=== PATIENT | female | born 1955 | race Caucasian/White ===

== ENCOUNTER → 2017-02-15 | Outpatient (CLI) | payer OTHER ==
[2017-02-15 08:48] LABS: CH 31.9; CHCM 34.4; HGB 16.2 gm/dL (11.4-16.0); MCH 31.4 pg (25.0-35.0); MCHC 33.8 g/dL (31.0-37.0); MCV 92.9 fL (80.0-100.0); RBC 5.17 m/uL (3.80-5.40); RDW 12.6 % (11.5-15.5); WBC 6.1 k/uL (3.8-10.6)
[2017-02-15 09:13] LABS: ALT 46 U/L (9-52); AST 25 U/L (14-36); Alkaline Phosphatase 62 U/L (38-126); Anion Gap 10 mmol/L; Blood Urea Nitrogen 22 mg/dL (7-17); Calcium 10.2 mg/dL (8.4-10.2); Carbon Dioxide 30 mmol/L (22-30); Chloride 103 mmol/L (98-107); Cholesterol 236 mg/dL (<200); Glucose 95 mg/dL (74-99); HDL Cholesterol 70 mg/dL (40-60); Non-African American GFR(MDRD) >60 (>60 ml/min/1.73 sqM); Potassium 4.6 mmol/L (3.5-5.1); Sodium 143 mmol/L (137-145); Total Bilirubin 0.7 mg/dL (0.2-1.3); Total Protein 8.1 g/dL (6.3-8.2); Triglycerides 98 mg/dL (<150)
[2017-02-15 12:04] LABS: Hemoglobin A1C 5.1 % (4.2-6.1)
== END | disposition home or self-care (01) ==
LOC: LABWHC1 08:21
PROVIDERS: ATTEND Internal Medicine Critical Care Medicine
DX: F41.9 Anxiety disorder, unspecified (principal); G47.00 Insomnia, unspecified
CPT/HCPCS: 36415; 80053; 80061; 82306; 83036; 84439; 84443; 85027

== ENCOUNTER → 2017-02-15 | Outpatient (CLI) | payer OTHER ==
--- NOTE | 2017-02-18 08:03 | MM ---
Reason for exam: additional evaluation requested from prior study. Last mammogram was performed 1 year ago. History: Patient is postmenopausal. Family history of breast cancer in paternal uncle and breast cancer in paternal grandmother. Excisional biopsy of the left breast, 2003. Excisional biopsy of the right breast, 2002. Taking estrogen for 2 years beginning at age 57. Physical Findings: Nurse Summary: 1cm nodule in the left breast at 6-7 o'clock (nurse sedrick). MG Diagnostic Mammo w CAD JOSE Bilateral CC and MLO view(s) were taken. Prior study comparison: February 15, 2016, bilateral MG screening mammo w CAD. February 04, 2015, left breast MG diagnostic mammo LT w CAD. The breast tissue is heterogeneously dense. This may lower the sensitivity of mammography. Previous mammotome biopsy in the left breast. There is chronic nodularity in the left breast. No significant new findings when compared with previous films. These results were verbally communicated with the patient and result sheet given to the patient on 02/15/17. ASSESSMENT: Benign, BI-RAD 2 RECOMMENDATION: Routine screening mammogram of both breasts in 1 year.
--- NOTE | 2017-02-18 08:04 | USB ---
Reason for exam: clinical finding. History: Patient is postmenopausal. Family history of breast cancer in paternal uncle and breast cancer in paternal grandmother. Excisional biopsy of the left breast, 2003. Excisional biopsy of the right breast, 2002. Taking estrogen for 2 years beginning at age 57. US Breast LT Left breast ultrasound includes all four quadrants, the retroareolar region and axilla. Finding demonstrate a 5 x 4 x 5mm oval, cystic lesion at 7 o'clock, slightly irregular. These results were verbally communicated with the patient and result sheet given to the patient on 02/15/17. ASSESSMENT: Probably benign, BI-RAD 3 RECOMMENDATION: Ultrasound of the left breast in 6 months.
== END | disposition home or self-care (01) ==
LOC: RADMAMWWP 07:06
PROVIDERS: ATTEND Obstetrics & Gynecology
DX: N63 Unspecified lump in breast (principal)
CPT/HCPCS: 76641; G0204

== ENCOUNTER → 2017-07-15 | Outpatient (CLI) | payer OTHER ==
--- NOTE | 2017-07-15 10:06 | CT ---
EXAMINATION TYPE: CT lumbar spine wo con DATE OF EXAM: 07/15/2017 COMPARISON: MR lumbar spine 02/03/2013 HISTORY: Back pain CT DLP: 530.2 mGycm Automated exposure control for dose reduction was used. An unenhanced CT of the lumbar spine was performed. Bone and soft tissue window settings are submitt ed as well as coronal and sagittal reconstructions. FINDINGS: Vertebral body height is maintained. Minimal anterolisthesis grade 1 L3-4. Multilevel spondylosis is present. Loss of disc height L5-S1 as compared to previous exam. Nonobstructive calculus associated w ith the midpole the left kidney measures approximately 3 mm, lower pole shows an additional 1 to 2 mm calcification bilaterally. Patient is post cholecystectomy, dilation of the bile duct likely due to postcholecystectomy change. There is a hiatal hernia present. L1-L2: Normal disc space height. No disc herniation protrusion or central stenosis. No facet joint arthropathy. No evidence for foraminal encroachment. L2-L3: Normal disc space height. No disc herniation protrusion or central stenosis. No facet joint arthropathy. No evidence for foraminal encroachment. L3-L4: Circumferential posterior disc bulging extends laterally and with the listhesis contributes to cause some mild foraminal encroachment. Facet arthropathy with hypertrophic change of the ligamentum flavum encroaches on the lateral recesses. Mild central stenosis. L4-L5: Facet arthropathy change is present with hypertrophic change of the ligamentum flavum encroach ing on the lateral recesses. Circumferential posterior disc bulge causes anterior mass effect on the thecal sac, mild central stenosis. No definite foraminal encroachment. L5-S1: Vacuum disc phenomenon present at L5-S1. Broad-based posterior disc bulge may contact the prox imal S1 nerve roots. No significant central stenosis. Circumferential extension of endplate disc comp karis encroaches on the neural foramina bilaterally. IMPRESSION: No paraspinal masses are identified. Lumbar segments are intact. Degenerative disc disease, facet ar thropathy, foraminal encroachment as described.
== END | disposition home or self-care (01) ==
LOC: RADCTMAIN 07:08
PROVIDERS: ATTEND Internal Medicine Critical Care Medicine
DX: M51.26 Other intervertebral disc displacement, lumbar region (principal); M46.86 Other specified inflammatory spondylopathies, lumbar region
CPT/HCPCS: 72131

== ENCOUNTER → 2017-09-16 | Outpatient (CLI) | payer OTHER ==
--- NOTE | 2017-09-17 07:11 | USB ---
Reason for exam: follow-up at short interval from prior study. History: Patient is postmenopausal. Family history of breast cancer in paternal uncle and breast cancer in paternal grandmother. Excisional biopsy of the left breast, 2003. Excisional biopsy of the right breast, 2002. Taking estrogen for 2 years beginning at age 57. Physical Findings: Nurse did not find any significant physical abnormalities on exam. US Breast LT Left breast ultrasound includes all four quadrants, the retroareolar region and axilla. Finding demonstrates a 4 x 3 x 4mm oval, cystic, benign lesion at 1 o'clock and a 4 x 3 x 4mm oval, cystic lesion at 7 o'clock versus 5 x 4 x 5mm previously at the palpable. An irregular cyst is suggested. Mammogram follow up can be performed. These results were verbally communicated with the patient and result sheet given to the patient on 09/16/17. ASSESSMENT: Probably benign, BI-RAD 3 RECOMMENDATION: Follow-up diagnostic mammogram of both breasts in 6 months.
== END | disposition home or self-care (01) ==
LOC: RADUSWWP 14:33
PROVIDERS: ATTEND Obstetrics & Gynecology
DX: R92.8 Other abnormal and inconclusive findings on diagnostic imaging of breast (principal)

== ENCOUNTER → 2018-03-17 | Outpatient (CLI) | payer OTHER ==
[2018-03-17 10:14] LABS: Basophils % (A) 1 %; Eosinophils # (A) 0.2 k/uL (0-0.7); Eosinophils % (A) 4 %; HCT 43.9 % (34.0-46.0); HGB 15.1 gm/dL (11.4-16.0); Lymphocytes # (A) 1.7 k/uL (1.0-4.8); Lymphocytes % (A) 29 %; MCH 30.9 pg (25.0-35.0); MCHC 34.4 g/dL (31.0-37.0); Mean Platelet Volume 7.1; Monocytes # (A) 0.3 k/uL (0-1.0); Monocytes % (A) 6 %; Neutrophils # (A) 3.5 k/uL (1.3-7.7); Neutrophils % (A) 59 %; Platelet Count 342 k/uL (150-450); RBC 4.88 m/uL (3.80-5.40); RDW 12.3 % (11.5-15.5); WBC 5.9 k/uL (3.8-10.6)
[2018-03-17 10:25] LABS: ALT 26 U/L (9-52); AST 17 U/L (14-36); Albumin 3.8 g/dL (3.5-5.0); Alkaline Phosphatase 50 U/L (38-126); Anion Gap 13 mmol/L; Blood Urea Nitrogen 14 mg/dL (7-17); Calcium 9.9 mg/dL (8.4-10.2); Carbon Dioxide 26 mmol/L (22-30); Chloride 102 mmol/L (98-107); Cholesterol 213 mg/dL (<200); Glucose 98 mg/dL (74-99); HDL Cholesterol 54 mg/dL (40-60); LDL Cholesterol,Calculated 146 mg/dL (0-99); Potassium 4.3 mmol/L (3.5-5.1); Sodium 141 mmol/L (137-145); Total Bilirubin 0.4 mg/dL (0.2-1.3); Total Protein 6.7 g/dL (6.3-8.2); Triglycerides 67 mg/dL (<150)
[2018-03-17 10:42] LABS: T4, Free (Free Thyroxine) 0.75 ng/dL (0.78-2.19)
[2018-03-17 21:16] LABS: Hemoglobin A1C 4.8 % (4.0-6.0)
== END ==
LOC: LABWHC1 09:35
PROVIDERS: ATTEND Internal Medicine Critical Care Medicine
DX: Z00.00 Encounter for general adult medical examination without abnormal findings (principal); J45.909 Unspecified asthma, uncomplicated; F41.9 Anxiety disorder, unspecified; G89.29 Other chronic pain; E78.5 Hyperlipidemia, unspecified
CPT/HCPCS: 36415; 77062; 80053; 80061; 82306; 83036; 84439; 84443; 84481; 85025

== ENCOUNTER → 2018-03-17 | Outpatient (CLI) | payer OTHER ==
--- NOTE | 2018-03-18 08:40 | MM ---
Reason for exam: additional evaluation requested from prior study. Last mammogram was performed 1 year and 1 month ago. History: Patient is postmenopausal. Family history of breast cancer in paternal uncle and breast cancer in paternal grandmother. Excisional biopsy of the left breast, 2003. Excisional biopsy of the right breast, 2002. Took estrogen for 2 years beginning at age 57. Physical Findings: Nurse Summary: 0.5cm nodule in the left breast at 2 o'clock (nurse mj). MG 3D Diag Mammo W/Cad JOSE Bilateral CC and MLO view(s) were taken. Prior study comparison: February 15, 2017, bilateral MG diagnostic mammo w CAD JOSE. February 15, 2016, bilateral MG screening mammo w CAD. The breast tissue is heterogeneously dense. This may lower the sensitivity of mammography. No significant new findings when compared with previous films. These results were verbally communicated with the patient and result sheet given to the patient on 03/17/18. ASSESSMENT: Benign, BI-RAD 2 RECOMMENDATION: Routine screening mammogram of both breasts in 1 year.
--- NOTE | 2018-03-18 08:41 | USB ---
Reason for exam: additional evaluation requested from prior study. History: Patient is postmenopausal. Family history of breast cancer in paternal uncle and breast cancer in paternal grandmother. Excisional biopsy of the left breast, 2003. Excisional biopsy of the right breast, 2002. Took estrogen for 2 years beginning at age 57. US Breast LT Left complete breast ultrasound includes all four quadrants, the retroareolar region and axilla. Finding demonstrates a 6 x 4 x 4mm cystic lesion at 1 o'clock. These results were verbally communicated with the patient and result sheet given to the patient on 03/17/18. ASSESSMENT: Benign, BI-RAD 2 RECOMMENDATION: Routine screening mammogram of both breasts in 1 year.
== END | disposition home or self-care (01) ==
LOC: RADMAMWWP 13:46
PROVIDERS: ATTEND Obstetrics & Gynecology
DX: R92.8 Other abnormal and inconclusive findings on diagnostic imaging of breast (principal); Z80.3 Family history of malignant neoplasm of breast
CPT/HCPCS: 77062; 77066

== ENCOUNTER → 2019-03-03 | Outpatient (CLI) | payer OTHER ==
--- NOTE | 2019-03-05 03:35 | MR ---
EXAMINATION TYPE: MR brain and iac wo/w con DATE OF EXAM: 03/03/2019 COMPARISON: NONE HISTORY: 63-year-old female cerebrovascular disease, hearing loss, Dizziness, Lt otalgia TECHNIQUE: Multiplanar, multisequence images of the brain and brainstem were acquired before and aft er administration of 7.5 mL IV Gadavist. Diffusion weighted imaging was performed. Additional cone d-down sequences through the internal auditory canals and posterior cranial fossa before and after IV contrast administration. FINDINGS: Diffusion weighted images demonstrate no evidence of an acute ischemic lesion in the brain. T2/FLAIR weighted sequences show mild periventricular bright white matter signal, likely age-related change. Midline structures demonstrate partially empty sella but otherwise normal morphology. The craniocerv ical junction is normal. There is mild cerebral atrophy. The ventricles are of normal caliber. There is a round, T2 isointense to mildly hyperintense, avidly enhancing mass within the medial left middle cranial fossa that may have a subtle enhancing dural tail. No surrounding vasogenic edema. There is no evidence of an acute intracranial hemorrhage, infarct, mass effect, or an extra-axial flu id collection. There is no cerebellopontine angle mass. The internal auditory canals are symmetric. Brainstem and skull base abnormalities are not seen. Post contrast images demonstrate no evidence of pathologic enhancement in the posterior cranial fossa or the internal auditory canals. There is no abnormal enhancement of the labyrinths. Scattered trace mucosal thickening within the ethmoid air cells. Globes are intact. IMPRESSION: 1. Round, avidly enhancing isointense to mildly hyperintense mass medial left middle cranial fossa wi th a subtle dural tail suggesting an extra-axial location. No vasogenic edema or mass effect. 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 Consider neurosurgery referral for surveillance or consideration t o other management options. Three-month follow-up MRI can be performed. 2. Otherwise, no acute intracranial abnormality seen. No specific abnormality identified on acoustic MRI.
== END ==
LOC: RADMRIMAIN 12:20
PROVIDERS: ATTEND Nurse Practitioner Family
DX: I67.89 Other cerebrovascular disease (principal); H90.3 Sensorineural hearing loss, bilateral; H92.02 Otalgia, left ear
CPT/HCPCS: 70553; A9585

== ENCOUNTER → 2019-03-20 | Outpatient (CLI) | payer OTHER ==
--- NOTE | 2019-03-24 13:44 | MM ---
Reason for exam: screening (asymptomatic). Last mammogram was performed 1 year ago. History: Patient is postmenopausal. Family history of breast cancer in paternal uncle and breast cancer in paternal grandmother. Excisional biopsy of the left breast, 2003. Excisional biopsy of the right breast, 2002. Took estrogen for 2 years beginning at age 57. Physical Findings: A clinical breast exam by your physician is recommended on an annual basis and results should be correlated with mammographic findings. MG Screening Mammo w CAD Bilateral CC and MLO view(s) were taken. Prior study comparison: March 17, 2018, bilateral MG 3d diag mammo w/cad JOSE. February 15, 2017, bilateral MG diagnostic mammo w CAD JOSE. The breast tissue is heterogeneously dense. This may lower the sensitivity of mammography. Previous mammotome biopsy in the left breast. No significant changes when compared with prior studies. ASSESSMENT: Benign, BI-RAD 2 RECOMMENDATION: Routine screening mammogram of both breasts in 1 year.
== END | disposition home or self-care (01) ==
LOC: RADMAMWWP 06:55
PROVIDERS: ATTEND Obstetrics & Gynecology
DX: Z12.31 Encounter for screening mammogram for malignant neoplasm of breast (principal); Z80.3 Family history of malignant neoplasm of breast
CPT/HCPCS: 77067

== ENCOUNTER → 2019-06-19 | Outpatient (CLI) | payer OTHER ==
--- NOTE | 2019-06-19 12:36 | MR ---
EXAMINATION TYPE: MR brain wo/w con DATE OF EXAM: 06/19/2019 COMPARISON: MR brain 03/03/2019 HISTORY: MENINGIOMA TECHNIQUE: Multiplanar, multisequence images of the brain and brainstem is performed without and with IV contras t, utilizing 7 mL intravenous Gadavist . FINDINGS: The enhancing mass along the medial aspect of the middle temporal fossa shows essentially s table appearance accounting for differences in technique measuring approximately 12.5 mm in greatest AP dimension. Diffusion weighted images demonstrate no evidence of a recent infarct or other diffusio n abnormality. There is no extra-axial fluid collection or significant white matter signal abnormali ty. The ventricular system and cisternal spaces are normal in size and appearance. The brain volume is age appropriate. Midline structures demonstrate normal morphology. The craniocervical junction appears within normal limits. Post contrast images demonstrate no abnormal enhancement. The dural venous sinuses appear pa tent. The visualized sinuses are clear and the globes are intact. IMPRESSION: Meningioma shows essentially stable appearance.
== END | disposition home or self-care (01) ==
LOC: RADMRIMAIN 09:24
DX: D32.0 Benign neoplasm of cerebral meninges (principal)
CPT/HCPCS: 70553; A9585

== ENCOUNTER → 2019-07-09 | Outpatient (CLI) | payer OTHER ==
[2019-07-09 09:32] LABS: Basophils # (A) 0.1 k/uL (0-0.2); Basophils % (A) 1 %; Eosinophils # (A) 0.2 k/uL (0-0.7); Eosinophils % (A) 3 %; HCT 44.5 % (34.0-46.0); HGB 15.5 gm/dL (11.4-16.0); Lymphocytes # (A) 1.6 k/uL (1.0-4.8); Lymphocytes % (A) 24 %; MCHC 34.9 g/dL (31.0-37.0); MCV 91.7 fL (80.0-100.0); Mean Platelet Volume 7.1; Monocytes # (A) 0.3 k/uL (0-1.0); Monocytes % (A) 4 %; Neutrophils # (A) 4.5 k/uL (1.3-7.7); Neutrophils % (A) 67 %; Platelet Count 345 k/uL (150-450); RBC 4.85 m/uL (3.80-5.40); RDW 14.2 % (11.5-15.5); WBC 6.8 k/uL (3.8-10.6)
[2019-07-09 16:05] LABS: African American GFR (CKD) 107.6 (60.0-200.0); Albumin 4.3 g/dL (3.80-4.90); Albumin/Globulin Ratio 2.05 (1.60-3.17); Anion Gap 8.1 mmol/L (4.00-12.00); Calcium 9.8 mg/dL (8.7-10.3); Carbon Dioxide 24.9 mmol/L (21.6-31.8); Chol/HDL Ratio 4.29; Globulin 2.1 g/dL (1.6-3.3); LDL Cholesterol,Calculated 137.6 mg/dL (0.0-131.0); Potassium 4.4 mmol/L (3.5-5.5); Total Bilirubin 0.5 mg/dL (0.2-1.2); Total Protein 6.4 g/dL (6.2-8.2); VLDL Calculation 20.4 mg/dL (5.00-40.00)
[2019-07-09 16:21] LABS: T4, Free (Free Thyroxine) 0.8 ng/dL (0.80-1.80)
[2019-07-09 18:46] LABS: Hemoglobin A1C 5.1 % (4.0-6.0)
== END | disposition home or self-care (01) ==
LOC: LABWHC1 08:57
PROVIDERS: ATTEND Internal Medicine Critical Care Medicine
DX: E78.5 Hyperlipidemia, unspecified (principal); J45.909 Unspecified asthma, uncomplicated; G89.29 Other chronic pain
CPT/HCPCS: 36415; 80053; 80061; 82306; 83036; 84439; 84443; 85025

== ENCOUNTER → 2019-07-24 | Outpatient (CLI) | payer OTHER ==
--- NOTE | 2019-07-24 07:03 | MR ---
EXAMINATION TYPE: MR lumbar spine wo con DATE OF EXAM: 07/24/2019 COMPARISON: MRI lumbar spine February 03, 2013 HISTORY: Low back pain TECHNIQUE: Multiplanar, multisequence imaging of the lumbar spine is performed without IV contrast. FINDINGS: Sagittal images of the lumbar spine show vertebral body heights and alignment to remain sat isfactory. Multilevel disc desiccation is redemonstrated but this space heights are fairly well-maint ained. The conus medullaris remains normal in position and signal ending superior L1 level. The bon e marrow signal intensity shows a few small scattered hemangiomas. Axial images at T12-L1 and L1-L2 levels remain within normal limits. Axial images at L2-L3 level redemonstrate mild broad disc bulge but spinal canal is preserved and elena ateral neural foramina are patent. No significant interval change. Axial images at L3-L4 level show moderate facet degenerative changes and ligamentum flavum hypertroph y effacing posterior lateral thecal sac and [id number] broad disc bulge effacing the anterior t hecal sac. There is mild bilateral anterior inferior neural foraminal narrowing. There is progression in findings at this level from prior MRI. Axial images at the L4-L5 level show mild facet degenerative changes bilaterally. There is central di sc protrusion seen. Bilateral neural foramina are patent. No significant change from prior. Axial images at L5-S1 level redemonstrated mild facet degenerative changes bilaterally. There is mode rate broad disc bulge with left lateral disc protrusion component. The latter is slightly more promin ent versus prior study. Spinal canal is grossly preserved. There is mild left-sided neural foraminal narrowing seen on current study. No suspicious incidental retroperitoneal finding. IMPRESSION: Multilevel fairly mild degenerative changes in the lumbar spine as detailed above. Findin gs most prominent at L3-L4 level with some interval progression from 2013 MRI noted.
== END | disposition home or self-care (01) ==
LOC: RADMRIMAIN 05:55
PROVIDERS: ATTEND Orthopaedic Surgery Orthopaedic Surgery of the Spine
DX: M48.061 Spinal stenosis, lumbar region without neurogenic claudication (principal); M48.07 Spinal stenosis, lumbosacral region; M51.26 Other intervertebral disc displacement, lumbar region; M51.86 Other intervertebral disc disorders, lumbar region; M47.816 Spondylosis without myelopathy or radiculopathy, lumbar region; M47.897 Other spondylosis, lumbosacral region; M51.27 Other intervertebral disc displacement, lumbosacral region; E78.5 Hyperlipidemia, unspecified; R51 Headache
CPT/HCPCS: 72148

== ENCOUNTER → 2019-07-24 | Outpatient (CLI) | payer OTHER ==
--- NOTE | 2019-07-24 07:14 | MR ---
MRI CERVICAL SPINE: CLINICAL HISTORY: Cervicalgia, posterior left neck discomfort, referred left otalgia, and osteoarthri tis all per order. Headache with sinus pressure for 9 months per patient. TECHNIQUE: Multiplanar, multisequence imaging of the cervical spine is performed without with IV cont rast. COMPARISON: None. FINDINGS: Sagittal images of the cervical spine show the craniocervical junction to appear within nor mal limits. The cervical and upper thoracic spinal cord is normal in course, caliber, and signal. V ertebral alignment is straightened. There is slight grade 1 retrolisthesis C4 on C5, C5 and C6, and C 6 on C7. The vertebral body heights are normal. Mild disc space narrowing C5-C6 level. There is focal hemangioma anterior superior T3 vertebra. Axial images show C2-C3, C3-C4, C4-C5 levels all 2 appear within normal limits. Axial images at the C5-C6 level showed broad based left paracentral disc protrusion mildly facing ant erior thecal sac and causing asymmetric [id number] left-sided neural foraminal narrowing. Axial images at C6-C7 levels with broad-based right paracentral disc protrusion mildly effacing the a nterolateral thecal sac. Bilateral neural foramina are patent. Axial images at C7-T1 level are felt within normal limits. IMPRESSION: Multilevel spondylolisthesis and degenerative change most prominent at C5-C6 level as det rigo above.
== END | disposition home or self-care (01) ==
LOC: RADMRIMAIN 06:02
PROVIDERS: ATTEND Otolaryngology
DX: M99.71 Connective tissue and disc stenosis of intervertebral foramina of cervical region (principal); M48.02 Spinal stenosis, cervical region; M43.12 Spondylolisthesis, cervical region; M50.222 Other cervical disc displacement at C5-C6 level; M47.812 Spondylosis without myelopathy or radiculopathy, cervical region; Z88.0 Allergy status to penicillin; Z88.2 Allergy status to sulfonamides
CPT/HCPCS: 72141

== ENCOUNTER → 2019-08-13 | Outpatient (CLI) | payer OTHER ==
--- NOTE | 2019-08-13 09:55 | CT ---
EXAMINATION TYPE: CT iac wo con DATE OF EXAM: 08/13/2019 COMPARISON: MRI brain 816 HISTORY: Dizziness CT DLP: 150mGycm Automated exposure control for dose reduction was used. FINDINGS: The external auditory canals are patent bilaterally. Mastoid air cells show no evidence of abnormal opacification bilaterally. The middle ear ossicles are symmetric and unremarkable. There is no evidence of suspicious surrounding soft tissue density to suggest cholesteatoma. The scutum is preserved bilaterally. The cochlea and the semicircular canals are symmetric and unremarkable. Ves tibular aqueduct and internal carotid canal appear unremarkable. Temporomandibular joints are mainta ined bilaterally. The anterior temporal fossa mass noted by MRI suggestive of meningioma is not as well-seen by noncont rast CT of the IACs. IMPRESSION: 1. No significant abnormality seen to account for patient's symptoms. 2. Recently noted extra-axial mass anterior left temporal fossa not well seen by noncontrast CT scan compared to the MRI. Favor meningioma. Measures approximately 1.2 cm.
== END | disposition home or self-care (01) ==
LOC: RADCTMAIN 08:03
PROVIDERS: ATTEND Student in an Organized Health Care Education/Training Program
DX: H71.00 Cholesteatoma of attic, unspecified ear (principal)
CPT/HCPCS: 70480

== ENCOUNTER 2020-06-30 07:40 | Emergency (ER) | payer OTHER ==
[2020-06-30 07:47] VITALS: BP 164/85; PULSE 83; RESP 16; TEMP 98.3
[2020-06-30] MEDS ORDERED: MORPHINE SULFATE 4 MG/ML SYRINGE IVP STA (08:14)
[2020-06-30] MEDS ORDERED: ONDANSETRON 4 MG/2 ML VIAL IVP STA (08:14)
[2020-06-30] MEDS ORDERED: KETOROLAC 15 MG/ML 1 ML VIAL IVP STA (08:14)
[2020-06-30] MEDS ORDERED: SODIUM CHLORIDE 0.9% 1,000 ML IV ONE (08:14)
--- NOTE | 2020-06-30 08:16 | ED ---
Female Urogenital HPI - General Chief complaint: Urogenital Stated complaint: Bladder infection Time Seen by Provider: 06/30/20 07:49 Source: patient, RN notes reviewed, old records reviewed Mode of arrival: ambulatory Limitations: no limitations - History of Present Illness Initial comments: Grady is a [id number] female presents with primary today with 3 days of dysuria. She reports that she was treated for urinary tract infection by PCP on Macrobid. Today would be her third day of taking the antibiotic. Patient states that she was feeling somewhat better until early this morning she woke up with sharp severe right lower abdominal pains. She states that she is concerned for appendicitis. He states that she does have some referred pain towards her back. Patient states that she's had no previous history of kidney stones but does report a positive family history of kidney stones. Surgical history includes kidney C-sections, bladder sling procedure, cholecystectomy, and orthopedic surgeries. - Related Data Home Medications Medication Instructions Recorded Confirmed Adk 1 tab PO DAILY 06/30/20 06/30/20 Citalopram Hydrobromide [CeleXA] 20 mg PO HS 06/30/20 06/30/20 Dim 1 tab PO DAILY 06/30/20 06/30/20 Ibuprofen [Motrin Ib] 800 mg PO Q8H PRN 06/30/20 06/30/20 Levocetirizine Dihydrochloride 5 mg PO DAILY 06/30/20 06/30/20 [Xyzal] Nitrofurantoin Monohyd/M-Cryst 100 mg PO Q12HR 06/30/20 06/30/20 [Macrobid] Pantoprazole Sodium [Protonix] 40 mg PO HS 06/30/20 06/30/20 Phenazopyridine [Pyridium] 200 mg PO TID 06/30/20 06/30/20 Progesterone, Micronized 400 mg PO HS 06/30/20 06/30/20 [Progesterone] Thyroid,Pork [[place] Thyroid] 60 mg PO DAILY 06/30/20 06/30/20 Previous Rx's Medication Instructions Recorded HYDROcodone/APAP 5-325MG [[place] 1 tab PO Q6HR PRN 3 Days #12 tab 06/30/20 5-325] Ketorolac [Toradol] 10 mg PO Q6HR #10 tab 06/30/20 Ondansetron Odt [Zofran Odt] 4 mg PO Q8HR PRN #12 tab 06/30/20 Tamsulosin [Flomax] 0.4 mg PO DAILY #10 cap 06/30/20 Allergies Allergy/AdvReac Type Severity Reaction Status Date / Time Penicillins Allergy Unknown Verified 06/30/20 09:32 Review of Systems ROS Statement: Those systems with pertinent positive or pertinent negative responses have been documented in the HPI. ROS Other: All systems not noted in ROS Statement are negative. Past Medical History Past Medical History: No Reported History History of Any Multi-Drug Resistant Organisms: None Reported Past Surgical History: Breast Surgery, Section, Hernia Repair, Orthopedic Surgery, Tonsillectomy Past Psychological History: No Psychological Hx Reported Smoking Status: Never smoker Past Alcohol Use History: None Reported Past Drug Use History: None Reported General Exam - General Exam Comments Initial Comments: Pleasant 64-year-old female. No significant distress. Limitations: no limitations General appearance: alert Head exam: Present: atraumatic, normocephalic, normal inspection Eye exam: Present: normal appearance, PERRL, EOMI. Absent: scleral icterus, conjunctival injection, periorbital swelling ENT exam: Present: normal exam, mucous membranes moist Neck exam: Present: normal inspection Respiratory exam: Present: normal lung sounds bilaterally Cardiovascular Exam: Present: regular rate, normal rhythm, normal heart sounds. Absent: systolic murmur, diastolic murmur, rubs, gallop, clicks GI/Abdominal exam: Present: soft, tenderness (Right lower quadrant tenderness), normal bowel sounds. Absent: distended, guarding, rebound, rigid Extremities exam: Present: normal inspection, full ROM, normal capillary refill. Absent: tenderness, pedal edema, joint swelling, calf tenderness Back exam: Present: normal inspection Neurological exam: Present: alert, oriented X3, CN II-XII intact Psychiatric exam: Present: normal affect, normal mood Skin exam: Present: warm, dry, intact, normal color. Absent: rash Course Vital Signs 06/30/20 07:42 Temperature 98.3 F Pulse Rate 83 Respiratory 16 Rate Blood Pressure 164/85 O2 Sat by Pulse 97 Oximetry Medical Decision Making - Medical Decision Making Patient is a 64-year-old female presents to return today for concern for right- sided lower abdominal pain, concern for dysuria past 2 days. She's been treated for UTI. This time urinalysis is negative for significant infection. Due to persistent pain Patient had a computed tomography scan. There is evidence of a 5 mm UVJ stone. Patient given a function is within normal limits. Discussed case with Dr. Hadley. Her computed tomography scan also showed evidence of some soft tissue irritation and may need direct visualization. Inform Patient of this and she'll need follow-up with urology. Computed tomography scan also mentioned biliary ductal dilation hours had cholecystectomy and she has no elevated bili [place] or liver enzymes or pancreatic enzymes. She'll be discharged at this time with prescription for pain meds and Flomax and referral for urology. - Lab Data Result diagrams: 06/30/20 08:19 06/30/20 08:19 Lab Results 06/30/20 06/30/20 06/30/20 Range/Units 07:58 08:19 08:19 WBC 12.9 H (3.8-10.6) k/uL RBC 4.91 (3.80-5.40) m/uL Hgb 15.0 (11.4-16.0) gm/dL Hct 44.1 (34.0-46.0) % MCV 89.7 (80.0-100.0) fL MCH 30.5 (25.0-35.0) pg MCHC 34.0 (31.0-37.0) g/dL RDW 12.1 (11.5-15.5) % Plt Count 333 (150-450) k/uL Neutrophils % 90 % Lymphocytes % 7 % Monocytes % 2 % Eosinophils % 1 % Basophils % 0 % Neutrophils # 11.5 H (1.3-7.7) k/uL Lymphocytes # 0.8 L (1.0-4.8) k/uL Monocytes # 0.3 (0-1.0) k/uL Eosinophils # 0.1 (0-0.7) k/uL Basophils # 0.0 (0-0.2) k/uL PT 9.7 (9.0-12.0) sec INR 0.9 (<1.2) APTT 23.1 (22.0-30.0) sec Sodium (137-145) mmol/L Potassium (3.5-5.1) mmol/L Chloride (98-107) mmol/L Carbon Dioxide (22-30) mmol/L Anion Gap mmol/L BUN (7-17) mg/dL Creatinine (0.52-1.04) mg/dL Est GFR (CKD-EPI)AfAm (>60 ml/min/1.73 sqM) Est GFR (CKD-EPI)NonAf (>60 ml/min/1.73 sqM) Glucose (74-99) mg/dL Calcium (8.4-10.2) mg/dL Total Bilirubin (0.2-1.3) mg/dL AST (14-36) U/L ALT (4-34) U/L Alkaline Phosphatase (38-126) U/L Total Protein (6.3-8.2) g/dL Albumin (3.5-5.0) g/dL Amylase (30-110) U/L Lipase (23-300) U/L Urine Color [place] Urine Appearance Cloudy H (Clear) Urine pH 6.5 (5.0-8.0) Ur Specific [place] 1.021 (1.001-1.035) Urine Protein Trace H (Negative) Urine Glucose (UA) Negative (Negative) Urine Ketones Negative (Negative) Urine Blood Negative (Negative) Urine Nitrite Positive H (Negative) Urine Bilirubin 1+ H (Negative) Urine Urobilinogen 3.0 (<2.0) mg/dL Ur Leukocyte Esterase Trace H (Negative) Urine RBC 2 (0-5) /hpf Urine WBC 4 (0-5) /hpf Ur Squamous Epith Cells 17 H (0-4) /hpf Urine Bacteria Rare H (None) /hpf Urine Mucus Rare H (None) /hpf 06/30/20 Range/Units 08:19 WBC (3.8-10.6) k/uL RBC (3.80-5.40) m/uL Hgb (11.4-16.0) gm/dL Hct (34.0-46.0) % MCV (80.0-100.0) fL MCH (25.0-35.0) pg MCHC (31.0-37.0) g/dL RDW (11.5-15.5) % Plt Count (150-450) k/uL Neutrophils % % Lymphocytes % % Monocytes % % Eosinophils % % Basophils % % Neutrophils # (1.3-7.7) k/uL Lymphocytes # (1.0-4.8) k/uL Monocytes # (0-1.0) k/uL Eosinophils # (0-0.7) k/uL Basophils # (0-0.2) k/uL PT (9.0-12.0) sec INR (<1.2) APTT (22.0-30.0) sec Sodium 136 L (137-145) mmol/L Potassium 3.9 (3.5-5.1) mmol/L Chloride 104 (98-107) mmol/L Carbon Dioxide 25 (22-30) mmol/L Anion Gap 7 mmol/L BUN 16 (7-17) mg/dL Creatinine 0.87 (0.52-1.04) mg/dL Est GFR (CKD-EPI)AfAm 82 (>60 ml/min/1.73 sqM) Est GFR (CKD-EPI)NonAf 71 (>60 ml/min/1.73 sqM) Glucose 112 H (74-99) mg/dL Calcium 9.5 (8.4-10.2) mg/dL Total Bilirubin 0.7 (0.2-1.3) mg/dL AST 20 (14-36) U/L ALT 16 (4-34) U/L Alkaline Phosphatase 50 (38-126) U/L Total Protein 7.0 (6.3-8.2) g/dL Albumin 4.1 (3.5-5.0) g/dL Amylase 118 H (30-110) U/L Lipase 158 (23-300) U/L Urine Color Urine Appearance (Clear) Urine pH (5.0-8.0) Ur Specific [place] (1.001-1.035) Urine Protein (Negative) Urine Glucose (UA) (Negative) Urine Ketones (Negative) Urine Blood (Negative) Urine Nitrite (Negative) Urine Bilirubin (Negative) Urine Urobilinogen (<2.0) mg/dL Ur Leukocyte Esterase (Negative) Urine RBC (0-5) /hpf Urine WBC (0-5) /hpf Ur Squamous Epith Cells (0-4) /hpf Urine Bacteria (None) /hpf Urine Mucus (None) /hpf - Radiology Data Radiology results: report reviewed There is 5 mm distal right ureter proctitis just before the UVJ causing moderate to severe right-sided hydronephrosis and delayed excretion. Slight asymmetric soft prominence of the calculus is noticed. Direct visualization to rule out neoplasm. Mild to moderate x-ray of headache and mild central left intrahepatic biliary dilation out of portion for suspected after cholecystectomy. Need further investigative nonemergent ERCP based off the clinical lab correlation. Disposition Clinical Impression: Ureteral stone Disposition: HOME SELF-CARE Condition: Good Instructions (If sedation given, give patient instructions): Ureteral Stones (ED) Additional Instructions: Patient advsed to complete the prescription of antibiotic to use the pain medications Flomax and nausea medicine as prescribed. Have follow-up with urology. Return to emergency department if any alarming signs or symptoms occur. Prescriptions: Tamsulosin [Flomax] 0.4 mg PO DAILY #10 cap HYDROcodone/APAP 5-325MG [[place] 5-325] 1 tab PO Q6HR PRN 3 Days #12 tab PRN Reason: Pain Ketorolac [Toradol] 10 mg PO Q6HR #10 tab Ondansetron Odt [Zofran Odt] 4 mg PO Q8HR PRN #12 tab PRN Reason: Nausea And Vomiting Is patient prescribed a controlled substance at d/c from ED?: Yes If prescribed controlled substance>3 days was MAPS reviewed?: Prescribed <3 Days If opioid is for acute pain is fill amount 7 days or less?: Yes If Rx opioid, was Start Talking consent form obtained?: Yes Referrals: Toni Brennan DO [Primary Care Provider] - 1-2 days Time of Disposition: 10:45
[2020-06-30 08:24] LABS: Mucus,Urine Rare /hpf; RBC,Urine 2 /hpf (0-5); Squamous Epithelial Cell,Urine 17 /hpf (0-4)
[2020-06-30 08:27] LABS: Appearance,Urine Cloudy (Clear); Bacteria,Urine Rare /hpf; Bilirubin,Urine 1+ (Negative); Blood,Urine Negative (Negative); Color,Urine Dark Orange; Glucose,Urine (UA) Negative (Negative); Ketones,Urine Negative (Negative); Leukocyte Esterase,Urine Trace (Negative); Nitrite,Urine Positive (Negative); PH, Urine 6.5 (5.0-8.0); Protein,Urine Trace (Negative); Specific Gravity,Urine 1.021 (1.001-1.035)
[2020-06-30 08:39] LABS: Basophils % (A) 0 %; Eosinophils # (A) 0.1 k/uL (0-0.7); Eosinophils % (A) 1 %; HCT 44.1 % (34.0-46.0); Lymphocytes # (A) 0.8 k/uL (1.0-4.8); Lymphocytes % (A) 7 %; MCH 30.5 pg (25.0-35.0); MCV 89.7 fL (80.0-100.0); Mean Platelet Volume 7.3; Monocytes # (A) 0.3 k/uL (0-1.0); Monocytes % (A) 2 %; Neutrophils # (A) 11.5 k/uL (1.3-7.7); Neutrophils % (A) 90 %; Platelet Count 333 k/uL (150-450); RBC 4.91 m/uL (3.80-5.40); RDW 12.1 % (11.5-15.5); WBC 12.9 k/uL (3.8-10.6)
[2020-06-30 08:46] LABS: WBC,Urine 4 /hpf (0-5)
[2020-06-30 08:47] LABS: INR 0.9 (<1.2); Partial Thromboplastin Time 23.1 sec (22.0-30.0); Prothrombin Time 9.7 sec (9.0-12.0)
[2020-06-30 08:48] LABS: Albumin 4.1 g/dL (3.5-5.0); Calcium 9.5 mg/dL (8.4-10.2); Potassium 3.9 mmol/L (3.5-5.1); Total Bilirubin 0.7 mg/dL (0.2-1.3)
--- NOTE | 2020-06-30 10:01 | CT ---
EXAMINATION TYPE: CT abdomen pelvis w con DATE OF EXAM: 06/30/2020 HISTORY: Right sided abdominal pain. CT DLP: 1102.4mGycm Automated Exposure Control for Dose Reduction was Utilized. CONTRAST: CT scan of the abdomen and pelvis is performed without oral but with IV Contrast, patient injected wi th 100 mL of Isovue 300. COMPARISON: CT abdomen and pelvis February 27, 2011. MRI kidney December 13, 2010. FINDINGS: LUNG BASES: Mild bibasilar linear scarring and/or atelectasis. LIVER/GB: Cholecystectomy clips now present new from 2011 studies. Mild extrahepatic and central left intrahepatic biliary dilatation up to 16 mm towards stoney hepatis image 34. Gradual tapering towards the ampulla without obstructing calculus clearly seen. Adjacent pancreatic duct measures upper limit s of normal. PANCREAS: No significant abnormality is seen. SPLEEN: No significant abnormality is seen. ADRENALS: No significant abnormality is seen. KIDNEYS: There is 4 mm calculus left kidney upper to midpole level axial image 40. There is 3 mm calc ulus right kidney upper to midpole level coronal image 44. There is symmetric corticomedullary uptake with left-sided excretion and no left-sided hydronephrosis. There is delayed right-sided excretion d ue to obstructing 5 mm calculus at distal right ureter right before UVJ axial image 83. Slight asymme tric soft tissue prominence at this level noted. Consider further investigation with cystoscopy to ru le out neoplasia. Early moderate to severe right-sided hydronephrosis. Poor distention of bladder wit hout intraluminal calculi. BOWEL: Suboptimal evaluation of bowel without enteric contrast. Persistent moderate size hiatal herni a with abnormal twisting of stomach and scattered surgical clips similar to 2011 study. No suspicious small or large bowel dilatation. Mild wall thickening in the sigmoid colon presumed on the basis of poor distention. UTERUS/ADNEXA: Atrophic or surgically absent uterus with some lobulation of the suspected vaginal cuf f. Remnant ovary is suspected in the upper pelvis axial image 68 not enlarged. LYMPH NODES: No greater than 1cm abdominal or pelvic lymph nodes are appreciated. OSSEOUS STRUCTURES: Moderate disc space narrowing with vacuum disc phenomenon L5-S1 level. Slight sco liotic curvature with multilevel spurring in the spine. Facet arthropathy lower lumbar levels. Mild t o moderate narrowing and mild acetabular spurring of both hips OTHER: Possible repair hernia midabdomen axial image 42 without definitive defect above the umbilicus . Rectus diastases inferiorly without recurrent hernia. IMPRESSION: 1. There is 5 mm distal right ureter calculus just before UVJ causing moderate to severe right-sided hydronephrosis and delayed excretion. Slight asymmetric soft tissue prominence near this calculus not ed, consider direct visualization to rule out neoplasm. 2. Mild to moderate extrahepatic and mild central left intrahepatic biliary dilatation out of proport ion to suspected after cholecystectomy. Need to further investigate with nonemergent ERCP should be b ased on clinical and lab correlation.
[2020-06-30] MEDS ORDERED: HYDROmorphone 1 MG/ML 1 ML SYRINGE IVP STA (10:05)
[2020-06-30] MEDS ORDERED: TAMSULOSIN 0.4 MG CAP.ER.24H PO STA (10:06)
== END 2020-06-30 11:31 | disposition home or self-care (01) ==
LOC: EC 07:40
DX: N13.2 Hydronephrosis with renal and ureteral calculous obstruction (principal); Z90.49 Acquired absence of other specified parts of digestive tract; Z79.899 Other long term (current) drug therapy; Z88.0 Allergy status to penicillin
CPT/HCPCS: 36415; 80053; 82150; 83690; 85025; 85610; 85730; 81001; 87086; 74177; 99284; 96374; 96375 ×3; 96361; J2270; J2405; J1170; J1885; Q9967

== ENCOUNTER 2020-07-05 11:37 | Inpatient (IN) | payer OTHER ==
[2020-07-05] MEDS ORDERED: MORPHINE SULFATE 4 MG/ML SYRINGE IV STA (12:16)
[2020-07-05] MEDS ORDERED: SODIUM CHLORIDE 0.9% 500 ML 500 ML IV STA (12:16)
[2020-07-05] MEDS ORDERED: SODIUM CHLORIDE 0.9% 1,000 ML IV STA ×2 (12:16)
[2020-07-05] MEDS ORDERED: KETOROLAC 15 MG/ML 1 ML VIAL IVP STA (12:16)
[2020-07-05] MEDS ORDERED: TAMSULOSIN 0.4 MG CAP.ER.24H PO STA (12:16)
--- NOTE | 2020-07-05 12:48 | ED ---
Recheck HPI - General Chief Complaint: Abdominal Pain Stated Complaint: Kidney Stone Time Seen by Provider: 07/05/20 12:07 Source: patient, family, RN notes reviewed, old records reviewed Mode of arrival: wheelchair Limitations: no limitations - History of Present Illness Initial Comments: This is a 61-year-old female DF for evaluation patient has known history of recent diagnosis of kidney stone 5 days of kidney stone pain. Here in the ER with persistent nausea vomiting and pain. She has not passed a kidney stone at this point. Still complaining of severe flank pain, no new fevers or dysuria -: days(s) Returns Today for: Called Because of Abnormal Lab/Test, persistent/worsening pain related to initial visit Symptoms Since Prior Visit: no new symptoms, improved Context: planned re-check Associated Symptoms: none - Related Data Home Medications Medication Instructions Recorded Confirmed Adk 1 tab PO DAILY 06/30/20 07/05/20 Citalopram Hydrobromide [CeleXA] 20 mg PO HS 06/30/20 07/05/20 Dim 1 tab PO DAILY 06/30/20 07/05/20 Ibuprofen [Motrin Ib] 800 mg PO Q8H PRN 06/30/20 07/05/20 Levocetirizine Dihydrochloride 5 mg PO DAILY 06/30/20 07/05/20 [Xyzal] Nitrofurantoin Monohyd/M-Cryst 100 mg PO Q12HR 06/30/20 07/05/20 [Macrobid] Pantoprazole Sodium [Protonix] 40 mg PO HS 06/30/20 07/05/20 Progesterone, Micronized 400 mg PO HS 06/30/20 07/05/20 [Progesterone] Thyroid,Pork [[place] Thyroid] 60 mg PO DAILY 06/30/20 07/05/20 Cranberry Fruit Extract [Cranberry] 1,000 mg PO DAILY PRN 07/05/20 07/05/20 Previous Rx's Medication Instructions Recorded HYDROcodone/APAP 5-325MG [[place] 1 tab PO Q6HR PRN 3 Days #12 tab 06/30/20 5-325] Ketorolac [Toradol] 10 mg PO Q6HR #10 tab 06/30/20 Ondansetron Odt [Zofran Odt] 4 mg PO Q8HR PRN #12 tab 06/30/20 Tamsulosin [Flomax] 0.4 mg PO DAILY #10 cap 06/30/20 Allergies Allergy/AdvReac Type Severity Reaction Status Date / Time Penicillins Allergy Itching Verified 07/05/20 14:56 Review of Systems ROS Statement: Those systems with pertinent positive or pertinent negative responses have been documented in the HPI. ROS Other: All systems not noted in ROS Statement are negative. Past Medical History Past Medical History: No Reported History History of Any Multi-Drug Resistant Organisms: None Reported Past Surgical History: Breast Surgery, Section, Hernia Repair, Orthopedic Surgery, Tonsillectomy Past Psychological History: No Psychological Hx Reported Smoking Status: Never smoker Past Alcohol Use History: None Reported Past Drug Use History: None Reported - Past Family History Father Family Medical History: Congestive Heart Failure (CHF) Additional Family Medical History / Comment(s): Father at the age of 80yrs. Mother Family Medical History: Diabetes Mellitus Additional Family Medical History / Comment(s): Mother from diabetic complications at the age of 80yrs. General Exam Limitations: no limitations General appearance: alert, in no apparent distress Head exam: Present: atraumatic, normocephalic, normal inspection Eye exam: Present: normal appearance, PERRL, EOMI. Absent: scleral icterus, conjunctival injection, periorbital swelling ENT exam: Present: normal exam, mucous membranes moist Neck exam: Present: normal inspection. Absent: tenderness, meningismus, lymphadenopathy Respiratory exam: Present: normal lung sounds bilaterally. Absent: respiratory distress, wheezes, rales, rhonchi, stridor Cardiovascular Exam: Present: regular rate, normal rhythm, normal heart sounds. Absent: systolic murmur, diastolic murmur, rubs, gallop, clicks GI/Abdominal exam: Present: soft, normal bowel sounds. Absent: distended, tenderness, guarding, rebound, rigid Extremities exam: Present: normal inspection, full ROM, normal capillary refill. Absent: tenderness, pedal edema, joint swelling, calf tenderness Back exam: Present: normal inspection Neurological exam: Present: alert, oriented X3, CN II-XII intact Psychiatric exam: Present: normal affect, normal mood Skin exam: Present: warm, dry, intact, normal color. Absent: rash Course Vital Signs 07/05/20 07/05/20 11:53 15:00 Temperature 98.0 F 98.2 F Pulse Rate 99 82 Respiratory 17 18 Rate Blood Pressure 157/79 130/74 O2 Sat by Pulse 95 98 Oximetry - Reevaluation(s) Reevaluation #1: Medical record is reviewed how the no eye Patient has persistent pain, refusing discharge - Consultations Consultation #1: spoke w Urology ok for admission Medical Decision Making - Medical Decision Making 64 female with intractable kidney stone pain. Miriam admit for urology to evalu ate treat - Lab Data Result diagrams: 07/05/20 13:05 07/05/20 13:05 Lab Results 07/05/20 07/05/20 07/05/20 Range/Units 13:05 13:05 13:05 WBC 11.6 H (3.8-10.6) k/uL RBC 4.68 (3.80-5.40) m/uL Hgb 14.6 (11.4-16.0) gm/dL Hct 42.3 (34.0-46.0) % MCV 90.4 (80.0-100.0) fL MCH 31.1 (25.0-35.0) pg MCHC 34.4 (31.0-37.0) g/dL RDW 12.1 (11.5-15.5) % Plt Count 307 (150-450) k/uL Neutrophils % 76 % Lymphocytes % 15 % Monocytes % 6 % Eosinophils % 2 % Basophils % 1 % Neutrophils # 8.7 H (1.3-7.7) k/uL Lymphocytes # 1.7 (1.0-4.8) k/uL Monocytes # 0.7 (0-1.0) k/uL Eosinophils # 0.3 (0-0.7) k/uL Basophils # 0.1 (0-0.2) k/uL Sodium 136 L (137-145) mmol/L Potassium 4.1 (3.5-5.1) mmol/L Chloride 104 (98-107) mmol/L Carbon Dioxide 25 (22-30) mmol/L Anion Gap 7 mmol/L BUN 14 (7-17) mg/dL Creatinine 0.95 (0.52-1.04) mg/dL Est GFR (CKD-EPI)AfAm 74 (>60 ml/min/1.73 sqM) Est GFR (CKD-EPI)NonAf 64 (>60 ml/min/1.73 sqM) Glucose 97 (74-99) mg/dL Calcium 9.6 (8.4-10.2) mg/dL Total Bilirubin 0.5 (0.2-1.3) mg/dL AST 19 (14-36) U/L ALT 31 (4-34) U/L Alkaline Phosphatase 51 (38-126) U/L Total Protein 7.2 (6.3-8.2) g/dL Albumin 4.3 (3.5-5.0) g/dL Amylase 98 (30-110) U/L Lipase 199 (23-300) U/L Urine Color Light Yellow Urine Appearance Clear (Clear) Urine pH 7.5 (5.0-8.0) Ur Specific [place] 1.003 (1.001-1.035) Urine Protein Negative (Negative) Urine Glucose (UA) Negative (Negative) Urine Ketones Negative (Negative) Urine Blood Large H (Negative) Urine Nitrite Negative (Negative) Urine Bilirubin Negative (Negative) Urine Urobilinogen <2.0 (<2.0) mg/dL Ur Leukocyte Esterase Negative (Negative) Urine RBC 3 (0-5) /hpf Urine WBC 1 (0-5) /hpf Ur Squamous Epith Cells 1 (0-4) /hpf Urine Bacteria Rare H (None) /hpf Disposition Clinical Impression: Ureteral stone, Abdominal pain, Intractable abdominal pain, Renal colic, Failure of outpatient treatment Disposition: ADMITTED IP TO THIS HOSP Condition: Fair Is patient prescribed a controlled substance at d/c from ED?: No
[2020-07-05 13:33] LABS: Basophils # (A) 0.1 k/uL (0-0.2); Basophils % (A) 1 %; Eosinophils # (A) 0.3 k/uL (0-0.7); Eosinophils % (A) 2 %; HCT 42.3 % (34.0-46.0); HGB 14.6 gm/dL (11.4-16.0); Lymphocytes # (A) 1.7 k/uL (1.0-4.8); Lymphocytes % (A) 15 %; MCH 31.1 pg (25.0-35.0); MCHC 34.4 g/dL (31.0-37.0); MCV 90.4 fL (80.0-100.0); Monocytes # (A) 0.7 k/uL (0-1.0); Monocytes % (A) 6 %; Neutrophils # (A) 8.7 k/uL (1.3-7.7); Neutrophils % (A) 76 %; Platelet Count 307 k/uL (150-450); RBC 4.68 m/uL (3.80-5.40); RDW 12.1 % (11.5-15.5); WBC 11.6 k/uL (3.8-10.6)
[2020-07-05 13:40] LABS: Appearance,Urine Clear (Clear); Bacteria,Urine Rare /hpf; Bilirubin,Urine Negative (Negative); Blood,Urine Large (Negative); Color,Urine Light Yellow; Glucose,Urine (UA) Negative (Negative); Ketones,Urine Negative (Negative); Leukocyte Esterase,Urine Negative (Negative); Nitrite,Urine Negative (Negative); PH, Urine 7.5 (5.0-8.0); Protein,Urine Negative (Negative); RBC,Urine 3 /hpf (0-5); Specific Gravity,Urine 1.003 (1.001-1.035); Squamous Epithelial Cell,Urine 1 /hpf (0-4); Urobilinogen,Urine <2.0 mg/dL (<2.0); WBC,Urine 1 /hpf (0-5)
[2020-07-05 13:42] LABS: Potassium 4.1 mmol/L (3.5-5.1)
[2020-07-05 13:43] LABS: Albumin 4.3 g/dL (3.5-5.0); Calcium 9.6 mg/dL (8.4-10.2); Total Bilirubin 0.5 mg/dL (0.2-1.3); Total Protein 7.2 g/dL (6.3-8.2)
[2020-07-05] MEDS ORDERED: HYDROmorphone 1 MG/ML 1 ML SYRINGE IVP STA (14:47)
[2020-07-05] MEDS ORDERED: ONDANSETRON 4 MG/2 ML VIAL IVP STA (15:51)
[2020-07-05] MEDS: HYDROmorphone 1 MG/ML 1 ML SYRINGE IVP PRN (19:52)
[2020-07-05] MEDS ORDERED: LACTATED RINGERS 1,000 ML IV SCH (21:45)
--- NOTE | 2020-07-05 21:49 | P.HPIM ---
History of Present Illness H&P Date: 07/05/20 Chief Complaint: right flank pain History of presenting complaint: This is a pleasant 64-year-old patient of Dr. Brennan. Chronic stable medical conditions include hypothyroid, GERD, left temporal hemangioma that is being followed. About 10 days ago patient was diagnosed with a UTI and was started off with antibiotics which she took for 2 days. Didn't feel well. 5 days ago she developed severe right flank pain and came to the ER. This in June 30. Computed tomography scan of the abdomen that time revealed a 4 mg calculus left kidney upper to mid for an 3 mm calculus in the right kidney upper to mid pole. There was a delayed right-sided excretion due to obstructing 5 mL calculus of the distal right UA junction. Also there was moderate to severe right-sided hydronephrosis. Patient is put on antibiotics Flomax and discharged home. Patient pain is has continued to get worse. Patient having episodes of freezing and feeling hot. Noticed some blood in the urine 2. 9. For the same. Urology was consulted. Review of systems: GEN.: Feeling hot and cold EYES: None HEENT: None NECK: None RESPIRATORY: None CARDIOVASCULAR: None GASTROINTESTINAL: None GENITOURINARY: As above MUSCULOSKELETAL: None LYMPHATICS: None HEMATOLOGICAL: None PSYCHIATRY: None NEUROLOGICAL: None Past medical history to include: Hypothyroid, GERD, left temporal hemangioma, bilateral kidney stones Social history: . Smoked for 20 years stopped in . No alcohol history. Physical examination: VITAL SIGNS: 98.3, 83, 16, 1 64/85, 97% on room air GENERAL: BMI 30.8, laying in bed, but uncomfortable. EYES: Pupils equal. Conjunctiva normal. HEENT: External appearance of nose and ears normal, oral cavity grossly normal. NECK: JVD not raised; masses not palpable. HEART: First and second heart sounds are normal; no edema. LUNGS: Respiratory rate normal; clear to auscultation. ABDOMEN: Soft, right flank tenderness, liver spleen not palpable, no masses palpable. PSYCH: [Alert and oriented x3; mood and affect slightly anxious NEUROLOGICAL: Cranial nerves grossly intact; no facial asymmetry, power and sensation grossly intact. LYMPHATICS: No lymph nodes palpable in the axilla and neck INVESTIGATIONS, reviewed in the clinical context: White count 12.9 hemoglobin 15 platelets 333 potassium 3.9 creatinine 0.87 UA from June 30 showed positive nitrite. Leukoesterase Computed tomography scan of the abdomen from June 30-bilateral kidney stones with the right-sided moderate to large hydronephrosis with right UV junction stone. Assessment: -Acute right-sided pyelonephritis with obstructive stone at the right UV junction. Having failed outpatient treatment. -Bilateral nephrolithiasis. -Obesity BMI 30.8 -Hypothyroid -GERD -Left temporal hemangioma being followed as an outpatient Plan: Patient be put on IV Levaquin. IV fluids. Lovenox for DVT prophylaxis. Home medications resumed. Urology was consulted. Patient will need extraction. C are was discussed with the patient. Questions were answered. blood cultures. Past Medical History Past Medical History: No Reported History Additional Past Medical History / Comment(s): Asthma/bronchitis long ago, migraines, L temporal hemangioma-monitoring, hypothyroid, Gerd-was to have EGD 07/08/20. History of Any Multi-Drug Resistant Organisms: None Reported Past Surgical History: Breast Surgery, Section, Hernia Repair, Orthopedic Surgery, Tonsillectomy Additional Past Surgical History / Comment(s): Bilateral breast benign biopsies, umbilical repair x2, total L knee x2, R thumb surgeries for neuromas, bladder suspension twice, panniculectomy, jag fundoplication then another repair done, sinus surgery Past Anesthesia/Blood Transfusion Reactions: No Reported Reaction Past Psychological History: No Psychological Hx Reported Smoking Status: Never smoker Past Alcohol Use History: None Reported Past Drug Use History: None Reported - Past Family History Father Family Medical History: Congestive Heart Failure (CHF) Additional Family Medical History / Comment(s): Father at the age of 80yrs. Mother Family Medical History: Diabetes Mellitus Additional Family Medical History / Comment(s): Mother from diabetic complications at the age of 80yrs. Medications and Allergies Home Medications Medication Instructions Recorded Confirmed Type Adk 1 tab PO DAILY 06/30/20 07/05/20 History Citalopram Hydrobromide [CeleXA] 20 mg PO HS 06/30/20 07/05/20 History Dim 1 tab PO DAILY 06/30/20 07/05/20 History HYDROcodone/APAP 5-325MG [[place] 1 tab PO Q6HR PRN 3 Days #12 tab 06/30/20 07/05/20 Rx 5-325] Ibuprofen [Motrin Ib] 800 mg PO Q8H PRN 06/30/20 07/05/20 History Ketorolac [Toradol] 10 mg PO Q6HR #10 tab 06/30/20 07/05/20 Rx Levocetirizine Dihydrochloride 5 mg PO DAILY 06/30/20 07/05/20 History [Xyzal] Nitrofurantoin Monohyd/M-Cryst 100 mg PO Q12HR 06/30/20 07/05/20 History [Macrobid] Ondansetron Odt [Zofran Odt] 4 mg PO Q8HR PRN #12 tab 06/30/20 07/05/20 Rx Pantoprazole Sodium [Protonix] 40 mg PO HS 06/30/20 07/05/20 History Progesterone, Micronized 400 mg PO HS 06/30/20 07/05/20 History [Progesterone] Tamsulosin [Flomax] 0.4 mg PO DAILY #10 cap 06/30/20 07/05/20 Rx Thyroid,Pork [[place] Thyroid] 60 mg PO DAILY 06/30/20 07/05/20 History Cranberry Fruit Extract [Cranberry] 1,000 mg PO DAILY PRN 07/05/20 07/05/20 History Allergies Allergy/AdvReac Type Severity Reaction Status Date / Time Penicillins Allergy Itching Verified 07/05/20 14:56 Physical Exam Vitals: Vital Signs Temp Pulse Resp BP Pulse Ox 07/05/20 15:00 98.2 F 82 18 130/74 98 07/05/20 11:53 98.0 F 99 17 157/79 95 Intake and Output 07/05/20 07/05/20 07/05/20 06:59 14:59 22:59 Other: Weight 78.925 kg 78.925 kg Results CBC & Chem 7: 07/05/20 13:05 07/05/20 13:05 Labs: Abnormal Lab Results - Last 24 Hours (Table) 07/05/20 07/05/20 07/05/20 Range/Units 13:05 13:05 13:05 WBC 11.6 H (3.8-10.6) k/uL Neutrophils # 8.7 H (1.3-7.7) k/uL Sodium 136 L (137-145) mmol/L Urine Blood Large H (Negative) Urine Bacteria Rare H (None) /hpf Thrombosis Risk Factor Assmnt - Choose All That Apply Any of the Below Risk Factors Present?: Yes Each Factor Represents 1 point: Obesity (BMI >25) Other Risk Factors: Yes Each Risk Factor Represents 2 Points: Age 61-74 years Other congenital or acquired thrombophilia - If yes, enter type in comment: No Thrombosis Risk Factor Assessment Total Risk Factor Score: 3 Thrombosis Risk Factor Assessment Level: Moderate Risk
[2020-07-05] MEDS: PROGESTERONE MICRONIZED 400 MG PO SCH (22:41)
[2020-07-05] MEDS: CITALOPRAM HYDROBROMIDE 20 MG TAB PO SCH (22:53)
[2020-07-05] MEDS: LACTATED RINGERS 1,000 ML IV SCH (22:53)
[2020-07-05] MEDS: PANTOPRAZOLE 40 MG TABLET PO SCH (22:53)
[2020-07-05] MEDS ORDERED: LEVOFLOXACIN 750MG-D5W PMX 750 MG in DEXTROSE/WATER 1 150ML.BAG IVPB SCH (23:00)
[2020-07-06] MEDS: HYDROmorphone 1 MG/ML 1 ML SYRINGE IVP PRN ×4 (00:01→12:02)
[2020-07-06] MEDS: ONDANSETRON 4 MG/2 ML VIAL IVP PRN ×3 (04:00→23:37)
[2020-07-06] MEDS: LACTATED RINGERS 1,000 ML IV SCH ×3 (06:40→23:36)
[2020-07-06 06:56] LABS: HCT 35.8 % (34.0-46.0); HGB 12.1 gm/dL (11.4-16.0); MCH 31.3 pg (25.0-35.0); MCHC 33.8 g/dL (31.0-37.0); MCV 92.8 fL (80.0-100.0); Mean Platelet Volume 7.5; Platelet Count 231 k/uL (150-450); RBC 3.86 m/uL (3.80-5.40); RDW 12.3 % (11.5-15.5); WBC 5.3 k/uL (3.8-10.6)
[2020-07-06 07:12] LABS: African American GFR (CKD) >90 (>60 ml/min/1.73 sqM); Anion Gap 2 mmol/L; Blood Urea Nitrogen 10 mg/dL (7-17); Calcium 8.1 mg/dL (8.4-10.2); Carbon Dioxide 28 mmol/L (22-30); Chloride 105 mmol/L (98-107); Glucose 91 mg/dL (74-99); Non-African American GFR(CKD) 88 (>60 ml/min/1.73 sqM); Potassium 4.5 mmol/L (3.5-5.1); Sodium 135 mmol/L (137-145)
[2020-07-06] MEDS: TAMSULOSIN 0.4 MG CAP.ER.24H PO SCH (08:39)
[2020-07-06] MEDS: LORATADINE 10 MG TAB PO SCH (08:39)
[2020-07-06] MEDS: THYROID PORK 60 MG PO SCH (08:40)
[2020-07-06] MEDS: ENOXAPARIN 40 MG/0.4 ML SYRINGE SQ SCH (08:41)
--- NOTE | 2020-07-06 10:22 | P.GSCN ---
History of Present Illness Consult date: 07/06/20 Reason for Consult: right sided ureteral stone History of present illness: Ms Barcenas is a 64 yo female with hx of 5mm right sided ureteral stone. She had A CT done on 06/30 which showed a 5 mm stone at the UVJ on the right , patient has been having intractable pain, with nausea. This am she is still complaining of sever pain. denies any dysuria,/ears/chills. She indicated she had an episode of gross hematuria initially on presentation but has now resolved. denies any previous history of kidney stone Review of Systems - Constitutional Denies fever, Denies weight loss - EENT Ears, nose, mouth and throat: Denies dysphagia - Cardiovascular Denies chest pain, Denies shortness of breath - Respiratory Denies cough, Denies 7 - Gastrointestinal Reports as per HPI - Genitourinary Genitourinary: Reports flank pain, Reports hematuria, Reports kidney stones - Integumentary Denies rash, Denies unusual bruising - Neurological Denies headaches, Denies syncope Past Medical History Past Medical History: No Reported History Additional Past Medical History / Comment(s): Asthma/bronchitis long ago, migraines, L temporal hemangioma-monitoring, hypothyroid, Gerd-was to have EGD 07/08/20. History of Any Multi-Drug Resistant Organisms: None Reported Past Surgical History: Breast Surgery, Section, Hernia Repair, Orthopedic Surgery, Tonsillectomy Additional Past Surgical History / Comment(s): Bilateral breast benign biopsies, umbilical repair x2, total L knee x2, R thumb surgeries for neuromas, bladder suspension twice, panniculectomy, jag fundoplication then another repair done, sinus surgery Past Anesthesia/Blood Transfusion Reactions: No Reported Reaction Past Psychological History: No Psychological Hx Reported Smoking Status: Never smoker Past Alcohol Use History: None Reported Past Drug Use History: None Reported - Past Family History Father Family Medical History: Congestive Heart Failure (CHF) Additional Family Medical History / Comment(s): Father at the age of 80yrs. Mother Family Medical History: Diabetes Mellitus Additional Family Medical History / Comment(s): Mother from diabetic complications at the age of 80yrs. Medications and Allergies Home Medications Medication Instructions Recorded Confirmed Type Adk 1 tab PO DAILY 06/30/20 07/05/20 History Citalopram Hydrobromide [CeleXA] 20 mg PO HS 06/30/20 07/05/20 History Dim 1 tab PO DAILY 06/30/20 07/05/20 History HYDROcodone/APAP 5-325MG [[place] 1 tab PO Q6HR PRN 3 Days #12 tab 06/30/20 07/05/20 Rx 5-325] Ibuprofen [Motrin Ib] 800 mg PO Q8H PRN 06/30/20 07/05/20 History Ketorolac [Toradol] 10 mg PO Q6HR #10 tab 06/30/20 07/05/20 Rx Levocetirizine Dihydrochloride 5 mg PO DAILY 06/30/20 07/05/20 History [Xyzal] Nitrofurantoin Monohyd/M-Cryst 100 mg PO Q12HR 06/30/20 07/05/20 History [Macrobid] Ondansetron Odt [Zofran Odt] 4 mg PO Q8HR PRN #12 tab 06/30/20 07/05/20 Rx Pantoprazole Sodium [Protonix] 40 mg PO HS 06/30/20 07/05/20 History Progesterone, Micronized 400 mg PO HS 06/30/20 07/05/20 History [Progesterone] Tamsulosin [Flomax] 0.4 mg PO DAILY #10 cap 06/30/20 07/05/20 Rx Thyroid,Pork [[place] Thyroid] 60 mg PO DAILY 06/30/20 07/05/20 History Cranberry Fruit Extract [Cranberry] 1,000 mg PO DAILY PRN 07/05/20 07/05/20 History Allergies Allergy/AdvReac Type Severity Reaction Status Date / Time Penicillins Allergy Itching Verified 07/05/20 14:56 Surgical - Exam Vital Signs Temp Pulse Resp BP Pulse Ox 98.0 F 99 17 157/79 95 07/05/20 11:53 07/05/20 11:53 07/05/20 11:53 07/05/20 11:53 07/05/20 11:53 - General well developed, well nourished, moderate distress, moderate pain - Eyes PERRL, normal ocular movement - ENT normal mucosa, no hearing loss - Respiratory normal expansion, normal respiratory effort - Abdomen Abdomen: soft, tender (RLQ) - Psychiatric oriented to time, oriented to person, oriented to place, speech is normal Results - Labs 07/06/20 06:26 07/06/20 06:26 Abnormal Lab Results - Last 24 Hours (Table) 07/05/20 07/05/20 07/05/20 Range/Units 13:05 13:05 13:05 WBC 11.6 H (3.8-10.6) k/uL Neutrophils # 8.7 H (1.3-7.7) k/uL Sodium 136 L (137-145) mmol/L Calcium (8.4-10.2) mg/dL Urine Blood Large H (Negative) Urine Bacteria Rare H (None) /hpf 07/06/20 Range/Units 06:26 WBC (3.8-10.6) k/uL Neutrophils # (1.3-7.7) k/uL Sodium 135 L (137-145) mmol/L Calcium 8.1 L (8.4-10.2) mg/dL Urine Blood (Negative) Urine Bacteria (None) /hpf Diabetes panel 07/05/20 07/06/20 Range/Units 13:05 06:26 Sodium 136 L 135 L (137-145) mmol/L Potassium 4.1 4.5 (3.5-5.1) mmol/L Chloride 104 105 (98-107) mmol/L Carbon Dioxide 25 28 (22-30) mmol/L BUN 14 10 (7-17) mg/dL Creatinine 0.95 0.73 (0.52-1.04) mg/dL Glucose 97 91 (74-99) mg/dL Calcium 9.6 8.1 L (8.4-10.2) mg/dL AST 19 (14-36) U/L ALT 31 (4-34) U/L Alkaline Phosphatase 51 (38-126) U/L Total Protein 7.2 (6.3-8.2) g/dL Albumin 4.3 (3.5-5.0) g/dL Calcium panel 07/05/20 07/06/20 Range/Units 13:05 06:26 Calcium 9.6 8.1 L (8.4-10.2) mg/dL Albumin 4.3 (3.5-5.0) g/dL Pituitary panel 07/05/20 07/06/20 Range/Units 13:05 06:26 Sodium 136 L 135 L (137-145) mmol/L Potassium 4.1 4.5 (3.5-5.1) mmol/L Chloride 104 105 (98-107) mmol/L Carbon Dioxide 25 28 (22-30) mmol/L BUN 14 10 (7-17) mg/dL Creatinine 0.95 0.73 (0.52-1.04) mg/dL Glucose 97 91 (74-99) mg/dL Calcium 9.6 8.1 L (8.4-10.2) mg/dL Adrenal panel 07/05/20 07/06/20 Range/Units 13:05 06:26 Sodium 136 L 135 L (137-145) mmol/L Potassium 4.1 4.5 (3.5-5.1) mmol/L Chloride 104 105 (98-107) mmol/L Carbon Dioxide 25 28 (22-30) mmol/L BUN 14 10 (7-17) mg/dL Creatinine 0.95 0.73 (0.52-1.04) mg/dL Glucose 97 91 (74-99) mg/dL Calcium 9.6 8.1 L (8.4-10.2) mg/dL Total Bilirubin 0.5 (0.2-1.3) mg/dL AST 19 (14-36) U/L ALT 31 (4-34) U/L Alkaline Phosphatase 51 (38-126) U/L Total Protein 7.2 (6.3-8.2) g/dL Albumin 4.3 (3.5-5.0) g/dL Assessment and Plan Assessment: 64-year-old female with history of 5 mm right-sided UVJ stone. She's been having intractable pain. Options of observation versus ureteroscopy were discussed with her. She agreed to proceed with right-sided ureteroscopy Plan: -Keep NPO -OR for right ureteroscopy, holmium laser lithotripsy
[2020-07-06] MEDS ORDERED: IV FLUID CONTINUATION 1,000 ML IV ONE (15:04)
[2020-07-06] MEDS ORDERED: ONDANSETRON 4 MG/2 ML VIAL IVP ONE (15:29)
[2020-07-06] MEDS ORDERED: DEXAMETHASONE SOD PHOSPHATE 10 MG/ML 1 ML VIAL IV ONE (15:29)
[2020-07-06] MEDS ORDERED: MIDAZOLAM 2 MG/2 ML VIAL IVP ONE (15:30)
[2020-07-06] MEDS ORDERED: SUCCINYLCHOLINE CHLORIDE VIAL 200 MG/10 ML VIAL IV ONE (16:49)
[2020-07-06] MEDS ORDERED: WATER FOR INJECTION, STERILE 10 ML VIAL IV ONE (16:49)
[2020-07-06] MEDS ORDERED: PROPOFOL 10 MG/ML 20 ML VIAL IV ONE (16:49)
[2020-07-06] MEDS ORDERED: LIDOCAINE 1% INJ 10MG/ML (20 ML MDV) ONE (16:49)
[2020-07-06] MEDS ORDERED: GENTAMICIN 40 MG/ML 2 ML VIAL ONE (16:49)
[2020-07-06] MEDS ORDERED: ePHEDrine SULFATE/0.9% NACL/PF 50 MG/5 ML SYRINGE IV ONE (16:49)
[2020-07-06] MEDS ORDERED: fentaNYL (PF) 50 MCG/ML 2 ML AMP ONE (16:49)
[2020-07-06] MEDS ORDERED: MIDAZOLAM 2 MG/2 ML VIAL ONE (16:49)
[2020-07-06] MEDS ORDERED: GENTAMICIN IV ONE ×2 (17:09)
[2020-07-06] MEDS ORDERED: SODIUM CHLORIDE 0.9% IV ONE ×2 (17:09)
[2020-07-06] MEDS ORDERED: IOPAMIDOL-370 50ML BTL MISCELLANE ONE ×2 (17:27)
[2020-07-06] MEDS ORDERED: LACTATED RINGERS 1,000 ML IV ONE (17:42)
--- NOTE | 2020-07-06 18:12 | P.OP ---
Date of Procedure: 07/06/20 Preoperative Diagnosis: right ureteral calculi Postoperative Diagnosis: same Procedure(s) Performed: cystoscopy, retrograde pyelogram, ureteroscopy, holmium laser lithotripsy, stone basketing and stent placement Implants: 4.8-[place] by 24 cm stent left on a string Anesthesia: DANIEL Surgeon: Lamonte Pinedo Estimated Blood Loss (ml): 5 Pathology: other Condition: stable Disposition: PACU (right ureteral calculi) Indications for Procedure: this is a 64-year-old female with history of 5 mm right distal ureteral stone. Additionally the computed tomography scan demonstrated thickening at the UVJ. She has failed medical expulsive therapy. She continued to have intractable pain. The option of right-sided ureteroscopy were discussed with her. Discussed with her the risk of the procedure which include but not limited to bleeding, infection, injury to the ureter. Also discussed with her risk from anesthesia. She understood all the risk and agreed to proceed with right-sided ureteroscopy with holmium laser lithotripsy. Operative Findings: right distal stone Description of Procedure: the patient was brought to the operating room, general anesthesia was induced. She was prepped and draped in sterile fashion and placed in a dorsal lithotomy position. Cystoscopy fitted with a 21 sheath was inserted per urethra. Cystoscopy was performed showed no abnormality within the bladder. at this time attention was then carried to the right ureteral orifice. Which showed no efflux. At this time the cystoscope was withdrawn and a semirigid ureteroscope was inserted. Semirigid ureteroscope was advanced along the right ureteral orifice. The stone was encountered in the distal ureter, which was fragmented using the holmium laser. Sizable fragments were removed using the stone basket and sent for analysis. Repeat ureteroscopy demonstrated no additional stones, the ureteroscope was advanced all the way up to the proximal ureter. Of note at that area there was tortuosity of the ureter and I was not able to advance the scope past it, retrograde pyelogram was performed which showed no additional filling defect. Pullback ureteroscopy was performed showed no additional stones or injury to the ureter. The area of thickening on CT did not demonstrate No papillary lesion, it appeared to be more edema from the stone. At this time a sensor wire was advanced through the ureteroscope and ureteroscope was withdrawn with the wire in place. Next a 4.8-[place] by 24 cm stent was passed over the wire. the proximal curl was visualized on fluoroscopy and distal curl was visualized using the cystoscope. The bladder was emptied and of the case. stent was left on string and taped to the patient's right thigh. The patient the patient will taken to PACU in stable condition
--- NOTE | 2020-07-06 19:50 | P.PN ---
Progress Note - Text Progress Note Date: 07/06/20 Chief Complaint: right flank pain History of presenting complaint: This is a pleasant 64-year-old patient of Dr. Brennan. Chronic stable medical conditions include hypothyroid, GERD, left temporal hemangioma that is being followed. About 10 days ago patient was diagnosed with a UTI and was started off with antibiotics which she took for 2 days. Didn't feel well. 5 days ago she developed severe right flank pain and came to the ER. This in June 30. Computed tomography scan of the abdomen that time revealed a 4 mg calculus left kidney upper to mid for an 3 mm calculus in the right kidney upper to mid pole. There was a delayed right-sided excretion due to obstructing 5 mL calculus of the distal right UA junction. Also there was moderate to severe right-sided hydronephrosis. Patient is put on antibiotics Flomax and discharged home. Patient pain is has continued to get worse. Patient having episodes of freezing and feeling hot. Noticed some blood in the urine 2. 9. For the same. Urology was consulted. Today-patient underwent cystoscopy with retrograde pyelogram with laser lithotripsy stone basketing and stent placement. Pain has been better. Getting IV fluids. Review of systems: Was done for constitutional, cardiovascular, GI, pulmonary. relevant finding as above Active Medications Citalopram Hydrobromide (Celexa) 20 mg PO HS [facility] Last Admin: 07/05/20 22:53 Dose: 20 mg Documented by: Enoxaparin Sodium (Lovenox) 40 mg SQ DAILY [facility] Last Admin: 07/06/20 08:41 Dose: 40 mg Documented by: Hydromorphone HCl (Dilaudid) 1 mg IVP Q4HR PRN PRN Reason: Pain Last Admin: 07/06/20 12:02 Dose: 1 mg Documented by: Lactated Ringer's (Lactated Ringers) 1,000 mls @ 150 mls/hr IV .Q6H40M [facility] Last Admin: 07/06/20 06:40 Dose: 150 mls/hr Documented by: Levofloxacin 500 mg/ IV (Solution) 100 mls @ 100 mls/hr IVPB [facility] Loratadine (Claritin) 10 mg PO DAILY [facility] Last Admin: 07/06/20 08:39 Dose: 10 mg Documented by: Non-Formulary Medication (Progesterone, Micronized [Progesterone]) 400 mg PO HS [facility] Last Admin: 07/05/20 22:41 Dose: Not Given Documented by: Non-Formulary Medication (Thyroid,Pork [[place] Thyroid]) 60 mg PO DAILY [facility] Last Admin: 07/06/20 08:40 Dose: Not Given Documented by: Ondansetron HCl (Zofran) 4 mg IVP Q6HR PRN PRN Reason: Nausea And Vomiting Last Admin: 07/06/20 09:53 Dose: 4 mg Documented by: Pantoprazole Sodium (Protonix) 40 mg PO [facility] Last Admin: 07/05/20 22:53 Dose: 40 mg Documented by: Tamsulosin HCl (Flomax) 0.4 mg PO DAILY [facility] Last Admin: 07/06/20 08:39 Dose: 0.4 mg Documented by: Physical examination: VITAL SIGNS: 98, 70, 16, 132/84, 96% room air GENERAL: BMI 30.8, laying in bed. EYES: Pupils equal. Conjunctiva normal. HEENT: External appearance of nose and ears normal, oral cavity grossly normal. NECK: JVD not raised; masses not palpable. HEART: First and second heart sounds are normal; no edema. LUNGS: Respiratory rate normal; clear to auscultation. ABDOMEN: Soft, right flank tenderness, liver spleen not palpable, no masses palpable. PSYCH: [Alert and oriented x3; mood and affect slightly anxious INVESTIGATIONS, reviewed in the clinical context: White count 5.3 hemoglobin 12.1 potassium 4.5 creatinine 0.73 Previous testing White count 12.9 hemoglobin 15 platelets 333 potassium 3.9 creatinine 0.87 UA from June 30 showed positive nitrite. Leukoesterase Computed tomography scan of the abdomen from June 30-bilateral kidney stones with the right-sided moderate to large hydronephrosis with right UV junction stone. Assessment: -Acute right-sided pyelonephritis with obstructive stone at the right UV junction. Having failed outpatient treatment.-Status post laser lithotripsy and stent placement -Bilateral nephrolithiasis. -Obesity BMI 30.8 -Hypothyroid -GERD -Left temporal hemangioma being followed as an outpatient Plan: Continue with IV Levaquin and IV fluids. Repeat labs in the morning. Follow
[2020-07-06] MEDS: PANTOPRAZOLE 40 MG TABLET PO SCH (20:14)
[2020-07-06] MEDS: CITALOPRAM HYDROBROMIDE 20 MG TAB PO SCH (20:14)
[2020-07-06] MEDS: LEVOFLOXACIN 500MG-D5W PMX 500 MG in DEXTROSE/WATER 1 100ML.BAG IVPB SCH (20:14)
[2020-07-06] MEDS: PROGESTERONE MICRONIZED 400 MG PO SCH (20:15)
[2020-07-06] MEDS ORDERED: LEVOFLOXACIN 750 MG TAB PO SCH (21:00)
[2020-07-06] MEDS: ACETAMINOPHEN TAB 325 MG TAB PO PRN (22:19)
[2020-07-06] MEDS: MELATONIN 3 MG TABLET PO SCH (23:59)
[2020-07-07] MEDS: LACTATED RINGERS 1,000 ML IV SCH ×4 (00:52→18:18)
[2020-07-07 06:42] LABS: HCT 36.7 % (34.0-46.0); HGB 12.6 gm/dL (11.4-16.0); MCH 31.4 pg (25.0-35.0); MCHC 34.3 g/dL (31.0-37.0); MCV 91.4 fL (80.0-100.0); Mean Platelet Volume 7.8; Platelet Count 275 k/uL (150-450); RBC 4.01 m/uL (3.80-5.40); RDW 12.4 % (11.5-15.5); WBC 8.1 k/uL (3.8-10.6)
[2020-07-07 07:06] LABS: African American GFR (CKD) >90 (>60 ml/min/1.73 sqM); Anion Gap 6 mmol/L; Blood Urea Nitrogen 6 mg/dL (7-17); Calcium 9.1 mg/dL (8.4-10.2); Carbon Dioxide 25 mmol/L (22-30); Chloride 105 mmol/L (98-107); Glucose 108 mg/dL (74-99); Non-African American GFR(CKD) >90 (>60 ml/min/1.73 sqM); Potassium 4.2 mmol/L (3.5-5.1); Sodium 136 mmol/L (137-145)
--- NOTE | 2020-07-07 07:46 | FL ---
Fluoroscopy HISTORY: Right renal stone 23 seconds fluoroscopy time supplied to the referring clinician. 2 intraoperative C-arm images docum ent the procedure. See dictated report from urology.
[2020-07-07] MEDS: LORATADINE 10 MG TAB PO SCH (09:22)
[2020-07-07] MEDS: IBUPROFEN 800 MG TAB PO PRN ×2 (09:22→17:09)
[2020-07-07] MEDS: TAMSULOSIN 0.4 MG CAP.ER.24H PO SCH (09:22)
[2020-07-07] MEDS: THYROID PORK 60 MG PO SCH (09:25)
[2020-07-07] MEDS: ENOXAPARIN 40 MG/0.4 ML SYRINGE SQ SCH (09:25)
[2020-07-07] MEDS ORDERED: HYDROcodone/APAP 5-325MG 1 EACH TAB PO STA (11:20)
--- NOTE | 2020-07-07 17:49 | P.PN ---
Subjective Progress Note Date: 07/07/20 POD #1 S/P right sided ureteroscopy No acute overnight event, pain controlled. Objective - Vital Signs Vital signs: Vital Signs Temp 97.9 F 07/07/20 16:00 Pulse 77 07/07/20 16:00 Resp 16 07/07/20 16:00 BP 140/85 07/07/20 16:00 Pulse Ox 97 07/07/20 16:00 Intake & Output 07/06/20 07/07/20 07/07/20 18:59 06:59 18:59 Intake Total 1058 1400 Output Total 5 Balance 1053 1400 Weight 78.925 kg Intake: IV 1058 1200 Lactated Ringers 1,000 ml 1200 @ 150 mls/hr IV .Q6H40M [facility] Rx#:[id number] Oral 200 Output: Estimated Blood Loss 5 Other: Voiding Method Toilet Toilet Toilet # Voids 2 7 - Constitutional General appearance: Present: no acute distress - Psychiatric Psychiatric: Present: A&O x's 3 - Labs CBC & Chem 7: 07/07/20 05:45 07/07/20 05:45 Labs: Abnormal Lab Results - Last 24 Hours (Table) 07/07/20 Range/Units 05:45 Sodium 136 L (137-145) mmol/L BUN 6 L (7-17) mg/dL Glucose 108 H (74-99) mg/dL Microbiology - Last 24 Hours (Table) 07/05/20 21:58 Blood Culture - Preliminary Blood No Growth after 24 hours Assessment and Plan Assessment: POD #1 S/P right sided ureteroscopy with holmium laser -Ok for discharge from urology standpoint -F/U in one week
--- NOTE | 2020-07-07 18:19 | P.PN ---
Progress Note - Text Progress Note Date: 07/07/20 Chief Complaint: right flank pain History of presenting complaint: This is a pleasant 64-year-old patient of Dr. Brennan. Chronic stable medical conditions include hypothyroid, GERD, left temporal hemangioma that is being followed. About 10 days ago patient was diagnosed with a UTI and was started off with antibiotics which she took for 2 days. Didn't feel well. 5 days ago she developed severe right flank pain and came to the ER. This in June 30. Computed tomography scan of the abdomen that time revealed a 4 mg calculus left kidney upper to mid for an 3 mm calculus in the right kidney upper to mid pole. There was a delayed right-sided excretion due to obstructing 5 mL calculus of the distal right UA junction. Also there was moderate to severe right-sided hydronephrosis. Patient is put on antibiotics Flomax and discharged home. Patient pain is has continued to get worse. Patient having episodes of freezing and feeling hot. Noticed some blood in the urine 2. 9. For the same. Urology was consulted. underwent cystoscopy with retrograde pyelogram with laser lithotripsy stone basketing and stent placement. Today-better. Eating better. Having some right flank pain. [place] urine. Has been out of bed. Review of systems: Was done for constitutional, cardiovascular, GI, pulmonary. relevant finding as above Active Medications Acetaminophen (Tylenol Tab) 650 mg PO Q6HR PRN PRN Reason: Fever and/ or Pain Last Admin: 07/06/20 22:19 Dose: 650 mg Documented by: Citalopram Hydrobromide (Celexa) 20 mg PO [facility] Last Admin: 07/06/20 20:14 Dose: 20 mg Documented by: Enoxaparin Sodium (Lovenox) 40 mg SQ DAILY [facility] Last Admin: 07/07/20 09:25 Dose: 40 mg Documented by: Levofloxacin 500 mg/ IV (Solution) 100 mls @ 100 mls/hr IVPB [facility] Last Admin: 07/06/20 20:14 Dose: 100 mls/hr Documented by: Lactated Ringer's (Lactated Ringers) 1,000 mls @ 100 mls/hr IV .Q10H [facility] Last Admin: 07/07/20 11:55 Dose: 100 mls/hr Documented by: Ibuprofen (Motrin) 800 mg PO Q8H PRN PRN Reason: Pain Last Admin: 07/07/20 17:09 Dose: 800 mg Documented by: Loratadine (Claritin) 10 mg PO DAILY [facility] Last Admin: 07/07/20 09:22 Dose: 10 mg Documented by: Melatonin (Melatonin) 6 mg PO HS [facility] Last Admin: 07/06/20 23:59 Dose: 6 mg Documented by: Non-Formulary Medication (Progesterone, Micronized [Progesterone]) 400 mg PO HS [facility] Last Admin: 07/06/20 20:15 Dose: Not Given Documented by: Non-Formulary Medication (Thyroid,Pork [[place] Thyroid]) 60 mg PO DAILY [facility] Last Admin: 07/07/20 09:25 Dose: Not Given Documented by: Ondansetron HCl (Zofran) 4 mg IVP Q6HR PRN PRN Reason: Nausea And Vomiting Last Admin: 07/06/20 23:37 Dose: 4 mg Documented by: Pantoprazole Sodium (Protonix) 40 mg PO HS [facility] Last Admin: 07/06/20 20:14 Dose: 40 mg Documented by: Tamsulosin HCl (Flomax) 0.4 mg PO DAILY [facility] Last Admin: 07/07/20 09:22 Dose: 0.4 mg Documented by: Physical examination: VITAL SIGNS: 98.3, 77, 16, 1 5587, 97% room air GENERAL: sitting up, comfortable EYES: Pupils equal. Conjunctiva normal. HEENT: External appearance of nose and ears normal, oral cavity grossly normal. NECK: JVD not raised; masses not palpable. HEART: First and second heart sounds are normal; no edema. LUNGS: Respiratory rate normal; clear to auscultation. ABDOMEN: Soft, right flank tenderness, liver spleen not palpable, no masses palpable. PSYCH: [Alert and oriented x3; mood and affect slightly anxious INVESTIGATIONS, reviewed in the clinical context: white count 8.1 hemoglobin 12.6 potassium 4.2 Previous testing White count 12.9 hemoglobin 15 platelets 333 potassium 3.9 creatinine 0.87 UA from June 30 showed positive nitrite. Leukoesterase Computed tomography scan of the abdomen from June 30-bilateral kidney stones with the right-sided moderate to large hydronephrosis with right UV junction stone. Assessment: -Acute right-sided pyelonephritis with obstructive stone at the right UV junction. Having failed outpatient treatment.-Status post laser lithotripsy and stent placement -Bilateral nephrolithiasis. -Obesity BMI 30.8 -Hypothyroid -GERD -Left temporal hemangioma being followed as an outpatient Plan: patient still having some right flank pain and pink urine. Clinically much improved. Discussed with the patient. We'll hydrate for another 24 hours and IV antibiotic and discharged tomorrow. Encouraged to ambulate
[2020-07-07] MEDS: CITALOPRAM HYDROBROMIDE 20 MG TAB PO SCH (20:24)
[2020-07-07] MEDS: MELATONIN 3 MG TABLET PO SCH (20:24)
[2020-07-07] MEDS: PANTOPRAZOLE 40 MG TABLET PO SCH (20:24)
[2020-07-07] MEDS: ACETAMINOPHEN TAB 325 MG TAB PO PRN (20:25)
[2020-07-07] MEDS: LEVOFLOXACIN 500MG-D5W PMX 500 MG in DEXTROSE/WATER 1 100ML.BAG IVPB SCH (20:37)
[2020-07-07] MEDS: PROGESTERONE MICRONIZED 400 MG PO SCH (21:00)
[2020-07-08] MEDS: IBUPROFEN 800 MG TAB PO PRN (04:13)
[2020-07-08] MEDS: LACTATED RINGERS 1,000 ML IV SCH (04:13)
[2020-07-08 05:09] VITALS: BP 150/85; PULSE 61; RESP 16; TEMP 98.1
[2020-07-08] MEDS: THYROID PORK 60 MG PO SCH (08:47)
[2020-07-08] MEDS: LORATADINE 10 MG TAB PO SCH (08:48)
[2020-07-08] MEDS: ENOXAPARIN 40 MG/0.4 ML SYRINGE SQ SCH (08:48)
[2020-07-08] MEDS: TAMSULOSIN 0.4 MG CAP.ER.24H PO SCH (08:48)
--- NOTE | 2020-07-08 22:27 | P.DS ---
Providers Date of admission: 07/06/20 11:46 Expected date of discharge: 07/08/20 Attending physician: Hood Cruz Consults: 07/05/20 14:41 Consult Physician Routine Consulting Provider: Harman Stoll Consult Reason/Comments: known Do you want consulting provider notified?: Yes Primary care physician: Toni Mika [facility] Course: Chief Complaint: right flank pain History of presenting complaint: This is a pleasant 64-year-old patient of Dr. Brennan. Chronic stable medical conditions include hypothyroid, GERD, left temporal hemangioma that is being followed. About 10 days ago patient was diagnosed with a UTI and was started off with antibiotics which she took for 2 days. Didn't feel well. 5 days ago she developed severe right flank pain and came to the ER. This in June 30. Computed tomography scan of the abdomen that time revealed a 4 mg calculus left kidney upper to mid for an 3 mm calculus in the right kidney upper to mid pole. There was a delayed right-sided excretion due to obstructing 5 mL calculus of the distal right UA junction. Also there was moderate to severe right-sided hydronephrosis. Patient is put on antibiotics Flomax and discharged home. Patient pain is has continued to get worse. Patient having episodes of freezing and feeling hot. Noticed some blood in the urine 2. 9. For the same. Urology was consulted. underwent cystoscopy with retrograde pyelogram with laser lithotripsy stone basketing and stent placement. Today-Doing well.. Urine is clear. Eating well. No flank pain. No fever. We will complete a course of oral antibiotics. Care was discussed with the patient. Questions answered. Consultation: Dr. Pinedo from urology Physical examination: VITAL SIGNS: 98.1, 61, 16, 150/85, 97% room air GENERAL: sitting up, comfortable EYES: Pupils equal. Conjunctiva normal. HEENT: External appearance of nose and ears normal, oral cavity grossly normal. NECK: JVD not raised; masses not palpable. HEART: First and second heart sounds are normal; no edema. LUNGS: Respiratory rate normal; clear to auscultation. ABDOMEN: Soft, no tenderness, liver spleen not palpable, no masses palpable. PSYCH: [Alert and oriented x3; mood and affect slightly anxious INVESTIGATIONS, reviewed in the clinical context: white count 8.1 hemoglobin 12.6 potassium 4.2 Blood cultures negative Previous testing White count 12.9 hemoglobin 15 platelets 333 potassium 3.9 creatinine 0.87 UA from June 30 showed positive nitrite. Leukoesterase Computed tomography scan of the abdomen from June 30-bilateral kidney stones with the right-sided moderate to large hydronephrosis with right UV junction stone. Assessment: -Acute right-sided pyelonephritis with obstructive stone at the right UV junction. Having failed outpatient treatment.-Status post laser lithotripsy and stent placement -Bilateral nephrolithiasis. -Obesity BMI 30.8 -Hypothyroid -GERD -Left temporal hemangioma being followed as an outpatient Disposition: Home Patient Condition at Discharge: Stable Plan - Discharge Summary Discharge Rx Participant: No New Discharge Prescriptions: New Levofloxacin [Levaquin] 500 mg PO DAILY #7 tab Continue Thyroid,Pork [[place] Thyroid] 60 mg PO DAILY Citalopram Hydrobromide [CeleXA] 20 mg PO HS Levocetirizine Dihydrochloride [Xyzal] 5 mg PO DAILY Pantoprazole Sodium [Protonix] 40 mg PO HS Progesterone, Micronized [Progesterone] 400 mg PO HS Tamsulosin [Flomax] 0.4 mg PO DAILY #10 cap HYDROcodone/APAP 5-325MG [[place] 5-325] 1 tab PO Q6HR PRN 3 Days #12 tab PRN Reason: Pain Ondansetron Odt [Zofran ODT] 4 mg PO Q8HR PRN #12 tab PRN Reason: Nausea And Vomiting Cranberry Fruit Extract [Cranberry] 1,000 mg PO DAILY PRN PRN Reason: uti Changed Ketorolac [Toradol] 10 mg PO Q6HR PRN #10 tab PRN Reason: Pain Discontinued Ibuprofen [Motrin Ib] 800 mg PO Q8H PRN PRN Reason: Pain Nitrofurantoin Monohyd/M-Cryst [Macrobid] 100 mg PO Q12HR No Action Adk 1 tab PO DAILY Dim 1 tab PO DAILY Discharge Medication List Adk 1 tab PO DAILY 06/30/20 [History] Citalopram Hydrobromide [CeleXA] 20 mg PO HS 06/30/20 [History] Dim 1 tab PO DAILY 06/30/20 [History] HYDROcodone/APAP 5-325MG [[place] 5-325] 1 tab PO Q6HR PRN 3 Days #12 tab 06/30/20 [Rx] Levocetirizine Dihydrochloride [Xyzal] 5 mg PO DAILY 06/30/20 [History] Ondansetron Odt [Zofran ODT] 4 mg PO Q8HR PRN #12 tab 06/30/20 [Rx] Pantoprazole Sodium [Protonix] 40 mg PO HS 06/30/20 [History] Progesterone, Micronized [Progesterone] 400 mg PO HS 06/30/20 [History] Tamsulosin [Flomax] 0.4 mg PO DAILY #10 cap 06/30/20 [Rx] Thyroid,Pork [[place] Thyroid] 60 mg PO DAILY 06/30/20 [History] Cranberry Fruit Extract [Cranberry] 1,000 mg PO DAILY PRN 07/05/20 [History] Ketorolac [Toradol] 10 mg PO Q6HR PRN #10 tab 07/08/20 [Rx] Levofloxacin [Levaquin] 500 mg PO DAILY #7 tab 07/08/20 [Rx] Follow up Appointment(s)/Referral(s): Lamonte Pinedo MD [STAFF PHYSICIAN] - 07/13/20 9:20 am Toni Brennan DO [Primary Care Provider] - 07/18/20 11:15 am Patient Instructions/Handouts: Levofloxacin (By mouth), Ureteral Stent Placement (DC), Lithotripsy (DC) Activity/Diet/Wound Care/Special Instructions: Regular diet as tolerated Activity as tolerated Discharge Disposition: HOME SELF-CARE
== END 2020-07-08 13:06 | disposition home or self-care (01) | DRG 661 ==
LOC: EC 11:37 → 3NCARDOBS 14:41 → OBSVTOIN 07-06 11:46 → 6NMEDSUR 07-07 17:47
PROVIDERS: ADMIT Hospitalist; ATTEND Hospitalist
PROC: BT1D1ZZ Fluoroscopy of Right Kidney, Ureter and Bladder using Low Osmolar Contrast (ICD-10-PCS; principal; 2020-07-06 16:51)
PROC: 0T768DZ Dilation of Right Ureter with Intraluminal Device, Via Natural or Artificial Opening Endoscopic (ICD-10-PCS; principal; 2020-07-06 16:51)
PROC: 0TC68ZZ Extirpation of Matter from Right Ureter, Via Natural or Artificial Opening Endoscopic (ICD-10-PCS; principal; 2020-07-06 16:51)
DX: N13.6 Pyonephrosis (principal); D18.09 Hemangioma of other sites; N10 Acute pyelonephritis; E03.9 Hypothyroidism, unspecified; E66.9 Obesity, unspecified; K21.9 Gastro-esophageal reflux disease without esophagitis; R31.0 Gross hematuria; G43.909 Migraine, unspecified, not intractable, without status migrainosus; Z68.30 Body mass index [BMI] 30.0-30.9, adult; Z79.899 Other long term (current) drug therapy; Z79.890 Hormone replacement therapy; Z88.0 Allergy status to penicillin; Z90.89 Acquired absence of other organs; Z98.890 Other specified postprocedural states; Z82.49 Family history of ischemic heart disease and other diseases of the circulatory system; Z83.3 Family history of diabetes mellitus
CPT/HCPCS: 36415; 74420; 80048; 80053; 81001; 82150; 82365; 83690; 85025; 85027; 87040; 96361; 96374; 96375; 99285

== ENCOUNTER 2020-08-11 08:59 | Day surgery (SDC) | payer OTHER ==
[2020-08-09 12:36] VITALS: BMI 30.2
[~2020-08-11 08:59] MED LIST: LACTATED RINGERS 1,000 ML IV SCH; LIDOCAINE 1% (10MG/ML) FOR IV START INTRADERMA PRN
[2020-08-11 09:24] VITALS: TEMP 98.3
[2020-08-11] MEDS ORDERED: ONDANSETRON 4 MG/2 ML VIAL IVP ONE (09:30)
[2020-08-11] MEDS ORDERED: ONDANSETRON 4 MG/2 ML VIAL ONE (09:31)
[2020-08-11] MEDS ORDERED: GLYCOPYRROLATE 0.2 MG/ML 2 ML VIAL ONE (09:39)
[2020-08-11] MEDS ORDERED: PROPOFOL 10 MG/ML 20 ML VIAL IV ONE (09:39)
[2020-08-11] MEDS ORDERED: LIDOCAINE 1% INJ 10MG/ML (20 ML MDV) ONE (09:39)
--- NOTE | 2020-08-11 09:44 | P.GSHP ---
History of Present Illness H&P Date: 08/11/20 Chief Complaint: GERD Is a 64-year-old female presents today for EGD. She's had issues with GERD. Past Medical History Past Medical History: Asthma, GERD/Reflux, Osteoarthritis (OA), Thyroid Disorder Additional Past Medical History / Comment(s): migraines,LEFT MENINGIOMA (TEMPORAL AREA )-monitoring, KIDNEY STONE, History of Any Multi-Drug Resistant Organisms: None Reported Past Surgical History: Breast Surgery, Section, Hernia Repair, Hysterectomy, Orthopedic Surgery, Tonsillectomy Additional Past Surgical History / Comment(s): Bilateral breast benign biopsies, umbilical repair x2, total L knee x2, R thumb surgeries for neuromas, bladder suspension twice, panniculectomy, jag fundoplication then another repair don e, sinus surgery, LITHROTRIPSY, Past Anesthesia/Blood Transfusion Reactions: No Reported Reaction Additional Past Anesthesia/Blood Transfusion Reaction / Comment(s): HEART RATE WENT UP WITH KIDNEY STONE SURGERY " Smoking Status: Former smoker - Past Family History Father Family Medical History: Congestive Heart Failure (CHF) Additional Family Medical History / Comment(s): Father at the age of 80yrs. Mother Family Medical History: Diabetes Mellitus Additional Family Medical History / Comment(s): Mother from diabetic complications at the age of 80yrs. Medications and Allergies Home Medications Medication Instructions Recorded Confirmed Type Adk 1 tab PO DAILY 06/30/20 08/09/20 History Citalopram Hydrobromide [CeleXA] 20 mg PO HS 06/30/20 08/09/20 History Dim 1 tab PO DAILY 06/30/20 08/09/20 History Levocetirizine Dihydrochloride 5 mg PO HS 06/30/20 08/09/20 History [Xyzal] Pantoprazole Sodium [Protonix] 40 mg PO HS 06/30/20 08/09/20 History Progesterone, Micronized 400 mg PO HS 06/30/20 08/09/20 History [Progesterone] Thyroid,Pork [[place] Thyroid] 60 mg PO DAILY 06/30/20 08/09/20 History Melatonin 10 mg PO HS 08/09/20 08/09/20 History Allergies Allergy/AdvReac Type Severity Reaction Status Date / Time cephalexin [From Keflex] Allergy Itching Verified 08/11/20 09:24 levofloxacin [From Levaquin] Allergy SEVERE Verified 08/11/20 09:24 MUSCLE PAIN Penicillins Allergy Itching Verified 08/11/20 09:24 Surgical - Exam Vital Signs Temp Pulse Resp BP Pulse Ox 98.3 F 83 16 190/88 97 08/11/20 09:20 08/11/20 09:20 08/11/20 09:20 08/11/20 09:20 08/11/20 09:20 - General well developed, well nourished, no distress - Eyes PERRL - ENT normal pinna - Neck no masses - Respiratory normal expansion - Cardiovascular Rhythm: regular - Abdomen Abdomen: soft, non tender Assessment and Plan Assessment: GERD. We'll perform EGD.
--- NOTE | 2020-08-11 09:53 | P.OP ---
Date of Procedure: 08/11/20 Preoperative Diagnosis: GERD Postoperative Diagnosis: Paraesophageal hernia Procedure(s) Performed: EGD Anesthesia: MAC Surgeon: Karan Lowry Pathology: other (Antrum, esophagus) Disposition: PACU Description of Procedure: The patient's placed on the endoscopy table in the lateral position. She received IV sedation. The gastroscope placed oropharynx passed in the esophagus and stomach. Scope was then placed through the pylorus. The first and second portion of the duodenum appeared normal. Scope was then brought back the antrum this was mildly inflamed. A biopsies performed. The scope was then retroflexed and the remainder of the stomach appeared normal. The peritoneal evidence of a paraesophageal hernia. It appeared that the fundoplication wrap was within the hernia. GE junction was at 38 cm. The distal esophagus appeared minimally inflamed a biopsies performed. The proximal esophagus appeared normal. Scope was withdrawn for patient.
[2020-08-11 10:04] VITALS: PULSE 86; RESP 16
[2020-08-11 10:07] VITALS: BP 160/86
== END 2020-08-11 10:25 ==
LOC: ORWHC2ENDO 08:59
PROVIDERS: ATTEND Surgery
DX: K21.9 Gastro-esophageal reflux disease without esophagitis (principal); K29.50 Unspecified chronic gastritis without bleeding; K44.9 Diaphragmatic hernia without obstruction or gangrene; J45.909 Unspecified asthma, uncomplicated; M19.90 Unspecified osteoarthritis, unspecified site; E07.9 Disorder of thyroid, unspecified; G43.909 Migraine, unspecified, not intractable, without status migrainosus; Z87.442 Personal history of urinary calculi; D32.9 Benign neoplasm of meninges, unspecified; Z90.710 Acquired absence of both cervix and uterus; Z98.890 Other specified postprocedural states; Z87.891 Personal history of nicotine dependence; Z82.49 Family history of ischemic heart disease and other diseases of the circulatory system; Z83.3 Family history of diabetes mellitus; Z79.890 Hormone replacement therapy; Z79.899 Other long term (current) drug therapy; Z88.1 Allergy status to other antibiotic agents; Z88.0 Allergy status to penicillin; Z96.652 Presence of left artificial knee joint; F41.9 Anxiety disorder, unspecified
CPT/HCPCS: 88305; 43239; J2405; J2001; J2704

== ENCOUNTER → 2020-08-16 | Outpatient (CLI) | payer OTHER ==
--- NOTE | 2020-08-16 10:59 | US ---
EXAMINATION TYPE: US kidneys/renal and bladder DATE OF EXAM: 08/16/2020 COMPARISON: CT CLINICAL HISTORY: N20.1 Ureteral stone. H/O renal stones EXAM MEASUREMENTS: Right Kidney: 10.7 x 4.3 x 4.3 cm Left Kidney: 10.4 x 4.4 x 4.6 cm Right Kidney: No evidence of hydro, lower pole gassed out, probable 5mm renal stone at mid portion Left Kidney: No evidence of hydro, probable 5mm renal stone upper pole Bladder: wnl Bilateral Jets seen: Yes There is no evidence for hydronephrosis at this point in time. No masses are identified. The urina ry bladder is anechoic. Bilateral ureteral jets are seen. IMPRESSION: Nonobstructing calculus right kidney as well as a left kidney.
== END | disposition home or self-care (01) ==
LOC: RADUSWWP 10:13
PROVIDERS: ATTEND Urology
DX: N20.0 Calculus of kidney (principal); Z88.0 Allergy status to penicillin
CPT/HCPCS: 76770

== ENCOUNTER → 2020-08-25 | Outpatient (CLI) | payer OTHER ==
--- NOTE | 2020-08-25 13:26 | FL ---
EXAMINATION TYPE: FL UGI air w esophagus DATE OF EXAM: 08/25/2020 LIMITED UGI-ESOPHAGRAM: CLINICAL HISTORY: History of prior surgery for hiatal hernia repair and reflux 20 years ago with alia gical revision 10 years ago with increasing epigastric pain and reflux-like symptoms. TECHNIQUE: Limited Upper GI esophagram is performed utilizing thin barium. A total of 0.49 minutes o f fluoroscopic time was utilized during procedure and 70 images are saved. Comparison: CT abdomen and pelvis June 30, 2020 FINDINGS: The patient swallowed contrast without difficulty or delay. Satisfactory peristalsis in th e entire esophagus up to level just above diaphragm. Findings correlate to recent CT site of hiatal h ernia. Surgical clips just to the site are noted there is eventual satisfactory flow into stomach abo ve and below diaphragm. Several episodes attempted show similar finding, there is even some contrast flow into the wrapped around hernia above the diaphragm noted images 5 through 8 pages 23 through 26 of 70. When there is hesitancy or delay in flow there is noted refluxed back to the level of the maryann na and the esophagus. Patient did not show increased symptoms. Stomach and duodenal sweep below diaph ragm grossly unremarkable. Cholecystectomy clips redemonstrated. IMPRESSION: Moderate delay at site of surgery which is just above the diaphragm, wraparound portion o f the proximal stomach causes a small fixed hiatal hernia. Findings correlate with recent CT.
== END | disposition home or self-care (01) ==
LOC: RADUSWWP 07:22
PROVIDERS: ATTEND Surgery
DX: K44.9 Diaphragmatic hernia without obstruction or gangrene (principal)
CPT/HCPCS: 74246

== ENCOUNTER → 2020-09-06 | Outpatient (CLI) | payer OTHER ==
--- NOTE | 2020-09-07 12:16 | MM ---
Reason for exam: screening (asymptomatic). Last mammogram was performed 1 year and 6 months ago. History: Patient is postmenopausal. Family history of breast cancer in paternal uncle and breast cancer in paternal grandmother. Excisional biopsy of the left breast, 2003. Excisional biopsy of the right breast, 2002. Took estrogen for 2 years beginning at age 57. Physical Findings: A clinical breast exam by your physician is recommended on an annual basis and results should be correlated with mammographic findings. MG Screening Mammo w CAD Bilateral CC and MLO view(s) were taken. Prior study comparison: March 20, 2019, bilateral MG screening mammo w CAD. March 17, 2018, bilateral MG 3d diag mammo w/cad JOSE. February 15, 2017, bilateral MG diagnostic mammo w CAD JOSE. February 15, 2016, bilateral MG screening mammo w CAD. The breast tissue is heterogeneously dense. This may lower the sensitivity of mammography. Finding: There is a clip and stable architectural distortion in the anterior, central position of the left breast consistent with known excision changes. There is a chronic nodularity in the left posterior breast. Focal asymmetry right middle depth upper outer quadrant, dense tissue. ASSESSMENT: Incomplete: need additional imaging evaluation, BI-RAD 0 RECOMMENDATION: Special view mammogram and ultrasound of the right breast. [facility] will attempt to contact patient to return for supplemental views and ultrasound.
== END | disposition home or self-care (01) ==
LOC: RADMAMWWP 15:49
PROVIDERS: ATTEND Obstetrics & Gynecology
DX: Z12.31 Encounter for screening mammogram for malignant neoplasm of breast (principal)
CPT/HCPCS: 77067

== ENCOUNTER → 2020-09-07 | Outpatient (CLI) | payer OTHER ==
--- NOTE | 2020-09-07 16:44 | MR ---
EXAMINATION TYPE: MR brain wo/w con DATE OF EXAM: 09/07/2020 COMPARISON: 06/19/2019 HISTORY: 64-year-old female D32.9, Patient has history of meningioma TECHNIQUE: Multiplanar, multisequence images of the brain and brainstem were acquired before and aft er administration of 7.5 mL IV Gadavist. Diffusion weighted imaging is performed. FINDINGS: No evidence for acute infarction, hemorrhage, mass effect, midline shift, herniation, effacement of b nellie cisterns, or extra-axial fluid collection. Redemonstrated intermediate T2 signal, avidly enhancing round extra-axial mass along the anteromedial left middle cranial fossa measuring 1.2 x 1.1 x 1.2 cm (previously 1.2 x 1.0 x 1.2 cm), not signific antly changed. The ventricles and sulci are age-appropriate. Major intracranial flow voids are intact. Hypoplastic A1 segment right anterior cerebral artery. T2/FLAIR weighted sequences show no white matter signal abnormality. Midline structures demonstrate normal morphology. The craniocervical junction is normal. Post contrast images demonstrate no other evidence of pathologic enhancement. Dural venous sinuses a re patent. Mild mucosal thickening ethmoid air cells. Globes are intact. IMPRESSION: 1. Stable 1.2 cm meningioma along the anteromedial left middle cranial fossa. 2. Otherwise, no intracranial abnormality seen. 3. Mild chronic ethmoid sinus disease.
== END | disposition home or self-care (01) ==
LOC: RADMRIMAIN 14:19
PROVIDERS: ATTEND Neurological Surgery
DX: D32.9 Benign neoplasm of meninges, unspecified (principal)
CPT/HCPCS: 70553; A9585

== ENCOUNTER 2020-09-12 07:12 | Day surgery (SDC) | payer OTHER ==
[~2020-09-12 07:12] MED LIST changes: +ACETAMINOPHEN TAB 500 MG TAB PO ONE; +CLINDAMYCIN 900 MG in DEXTROSE 5% IN WATER 50 ML IVPB ONE; +DEXAMETHASONE SOD PHOSPHATE 4 MG/ML 1 ML VIAL IV ONE; +HEPARIN SODIUM,PORCINE 5,000 UNIT/ML 1 ML VIAL SQ ONE; -LACTATED RINGERS 1,000 ML IV SCH; -LIDOCAINE 1% (10MG/ML) FOR IV START INTRADERMA PRN; +MIDAZOLAM 2 MG/2 ML VIAL IV PRN; +ONDANSETRON 4 MG/2 ML VIAL IVP ONE; +SCOPOLAMINE 1.5MG/72HR PATCH TRANSDERM ONE
[2020-09-12] MEDS ORDERED: LACTATED RINGERS 1,000 ML IV ONE ×2 (07:40→10:16)
--- NOTE | 2020-09-12 08:35 | P.GSHP ---
History of Present Illness H&P Date: 09/12/20 Chief Complaint: Dysphagia This a 64-year-old female who presents today for laparoscopic repair of recurrent paraesophageal hernia. Patient developed dysphagia and GERD symptoms. Past Medical History Past Medical History: Asthma, GERD/Reflux, Osteoarthritis (OA), Thyroid Disorder Additional Past Medical History / Comment(s): migraines,LEFT MENINGIOMA (TEMPORAL AREA )-monitoring, KIDNEY STONE, History of Any Multi-Drug Resistant Organisms: None Reported Past Surgical History: Breast Surgery, Section, Hernia Repair, Hysterectomy, Orthopedic Surgery, Tonsillectomy Additional Past Surgical History / Comment(s): Bilateral breast benign biopsies, umbilical repair x2, total L knee x2, R thumb surgeries for neuromas, bladder suspension twice, panniculectomy, jag fundoplication then another repair done, sinus surgery, LITHROTRIPSY, Past Anesthesia/Blood Transfusion Reactions: No Reported Reaction Additional Past Anesthesia/Blood Transfusion Reaction / Comment(s): HEART RATE WENT UP WITH KIDNEY STONE SURGERY " Additional Psychological History / Comment(s): PT resides with her spouse. She is independent Additional Past Alcohol Use History / Comment(s): STARTED SMOKING AT AGE 17 QUIT SMOKING 1998 SMOKED 1/2-1PPD - Past Family History Father Family Medical History: Congestive Heart Failure (CHF) Additional Family Medical History / Comment(s): Father at the age of 80yrs. Mother Family Medical History: No Reported History Additional Family Medical History / Comment(s): . Medications and Allergies Home Medications Medication Instructions Recorded Confirmed Type Adk 1 tab PO DAILY 06/30/20 09/08/20 History Dim 1 tab PO DAILY 06/30/20 09/08/20 History Pantoprazole Sodium [Protonix] 40 mg PO HS 06/30/20 09/08/20 History Progesterone, Micronized 400 mg PO HS 06/30/20 09/08/20 History [Progesterone] Thyroid,Pork [[place] Thyroid] 60 mg PO DAILY 06/30/20 09/08/20 History Melatonin 10 mg PO HS 08/09/20 09/08/20 History Fexofenadine/Pseudoephedrine 1 each PO BID 09/08/20 09/08/20 History [Yessenia-D 12 Hour Tablet] buPROPion HCL [Wellbutrin SR] 150 mg PO Q12H 09/08/20 09/08/20 History Allergies Allergy/AdvReac Type Severity Reaction Status Date / Time cephalexin [From Keflex] Allergy Itching Verified 09/08/20 09:09 levofloxacin [From Levaquin] Allergy SEVERE Verified 09/08/20 09:09 MUSCLE PAIN Penicillins Allergy Itching Verified 09/08/20 09:09 Surgical - Exam Vital Signs Temp Pulse Resp BP Pulse Ox 97.8 F 84 18 146/83 97 09/12/20 07:38 09/12/20 07:38 09/12/20 07:38 09/12/20 07:38 09/12/20 07:38 - General well developed, well nourished, no distress - Eyes PERRL - ENT normal pinna - Neck no masses - Respiratory normal expansion - Cardiovascular Rhythm: regular - Abdomen Abdomen: soft, non tender Assessment and Plan Assessment: Recurrent paraesophageal hernia. We'll perform laparoscopic repair.
[2020-09-12] MEDS ORDERED: HYDROmorphone (PF) 1 MG/ML ONE (09:05)
[2020-09-12] MEDS ORDERED: ROCURONIUM 10 MG/ML (10 ML VIAL) IV ONE (09:05)
[2020-09-12] MEDS ORDERED: PROPOFOL 10 MG/ML 20 ML VIAL IV ONE (09:05)
[2020-09-12] MEDS ORDERED: GLYCOPYRROLATE 0.2 MG/ML 2 ML VIAL ONE (09:05)
[2020-09-12] MEDS ORDERED: SUCCINYLCHOLINE CHLORIDE 100 MG/5 ML SYR IV ONE (09:05)
[2020-09-12] MEDS ORDERED: fentaNYL (PF) 50 MCG/ML 2 ML AMP ONE (09:05)
[2020-09-12] MEDS ORDERED: NEOSTIGMINE 1 MG/ML 10 ML VIAL ONE (09:05)
[2020-09-12] MEDS ORDERED: MIDAZOLAM 2 MG/2 ML VIAL ONE (09:05)
[2020-09-12] MEDS ORDERED: KETOROLAC 15 MG/ML 1 ML VIAL ONE (09:05)
[2020-09-12] MEDS ORDERED: BUPIVACAINE (PF) 0.5% 30 ML VIAL SQ ONE (09:32)
[2020-09-12] MEDS ORDERED: ONDANSETRON 4 MG/2 ML VIAL IVP PRN (10:27)
--- NOTE | 2020-09-12 10:27 | P.OP ---
Date of Procedure: 09/12/20 Preoperative Diagnosis: Dysphagia Postoperative Diagnosis: Dysphagia Recurrent paraesophageal hernia Procedure(s) Performed: Laparoscopic repair of paraesophageal hernia with Villalba bio a mesh placement Laparoscopic lysis of adhesions Anesthesia: DANIEL Surgeon: Karan Lowry Estimated Blood Loss (ml): 10 Pathology: none sent Condition: stable Disposition: PACU Description of Procedure: The patient was placed on the operating table in the supine position. The patient received general anesthesia. And was placed in dorsal lithotomy position. The patient was prepped and draped in the usual sterile fashion. The skin incision sites were anesthetized with 1% local Xylocaine. The skin was incised in the left periumbilical area and then using a blade less 5 mm trocar under direct visualization panel cavity was entered. After adequate insufflation the laparoscope was then placed into the peritoneal cavity. Next a 5 mm trochars placed in the right epigastric position. Another 5 millimeter trocar the right lateral position. Another 5 millimeter trocar in the left lateral position a 5 mm trocar is placed in the left epigastric position. And then the initial 5 mm trocar was exchanged for a 10 mm trocar. The left lateral lobe liver was retracted. The hernia was seen. Adhesions from the omentum to the anterior wall were lysed using Harmonic scissors. The patient had a recurrent paraesophageal hernia. The adhesions to the stomach and abdominal wall and diaphragm were lysed using sharp dissection. The crural defect was then dissected free and stomach was then withdrawn into the abdominal cavity. The concepción the diaphragm was then repaired using 2-0 Ethibond suture. The crural repair was then buttressed with Villalba bio a mesh. This was secured with 2-0 Ethibond suture. A 58-Swedish bougie dilator was placed for the crural repair. The previous gastric plication appeared to be around the very top of the stomach this was taken down with sharp dissection. Care was taken to identify and preserve the gastric wall. At this point the trochars withdrawn. There is no bleeding seen. The the. Cavity was desufflated. The skin was closed interrupted 3-0 Monocryl suture. Dermabond dressings was applied.
[2020-09-12] MEDS: HYDROmorphone 0.5 MG/0.5 ML SYRINGE IVP PRN ×2 (10:40→10:50)
[2020-09-12] MEDS ORDERED: fentaNYL (PF) 50 MCG/ML 2 ML AMP IVP ONE (11:20)
[2020-09-12] MEDS: LACTATED RINGERS 1,000 ML IV SCH (12:56)
[2020-09-12] MEDS: METOCLOPRAMIDE 5 MG/ML 2 ML VIAL IVP SCH ×3 (12:57→22:56)
[2020-09-12] MEDS: HYDROmorphone 1 MG/ML 1 ML SYRINGE IVP PRN ×2 (14:39→20:17)
[2020-09-12] MEDS: D5-0.45% NACL WITH KCL 20MEQ/L 1,000 ML IV SCH ×3 (14:39→22:58)
[2020-09-12 15:14] VITALS: BMI 30.1
[2020-09-12] MEDS: buPROPion SR 150 MG TABLET.ER PO SCH (16:05)
--- NOTE | 2020-09-12 16:15 | FL ---
EXAMINATION TYPE: FL esophagus cervic/pharynx DATE OF EXAM: 09/12/2020 LIMITED UGI-ESOPHAGRAM: CLINICAL HISTORY: Hiatal hernia and reflux, Marissa fundoplication surgery earlier today. History of prior reflux surgery. TECHNIQUE: Limited esophagram is performed utilizing 50 oz of Omnipaque 350. A total of 38 seconds o f fluoroscopic time was utilized during procedure and 36 images obtained. Comparison: Prior upper GI study August 25, 2020 FINDINGS: The patient swallowed contrast without difficulty or delay. Cholecystectomy clips are rede monstrated. Esophageal peristalsis and motility are within normal limits. There is [id number] delay flow of contrast along the diaphragmatic hiatus into the stomach, there is no evidence of contr ast extravasation to suggest leak. No persistent hiatal hernia is seen after revision. Patient remain s asymptomatic. IMPRESSION: No evidence of leak or significant obstruction status post Andrew fundoplication revision surgery earlier today.
[2020-09-12] MEDS: MELATONIN 5 MG TABLET PO SCH (19:58)
[2020-09-12] MEDS: PANTOPRAZOLE 40 MG TABLET PO SCH (19:58)
[2020-09-12] MEDS: LORATADINE-PSEUDOEPH 5-120 MG 1 EACH TAB.ER.12H PO SCH (19:58)
[2020-09-12] MEDS: NON FORMULARY DRUG (Progesterone, Micronized [Progesterone] 200 MG Capsule) PO SCH (21:59)
--- NOTE | 2020-09-13 00:37 | CONS ---
CONSULTATION DATE OF SERVICE: 09/12/2020. REASON FOR CONSULTATION: Advice regarding GERD and multiple other medical issues requested by Dr. Lowry. HISTORY OF PRESENT ILLNESS: This 64-year-old woman with a past medical history of GERD, history of DJD, hypothyroidism, history of migraines, left meningioma being followed Dr. Toni Brennan in the outpatient setting underwent laparoscopic repair of the paraesophageal hernia with [place] Bio A mesh placement by Dr. Lowry. There is no history of any chest pain. No history of palpitations. The patient has occasional cough. Patient has some allergies. Patient was previously taking Xyzal. Currently patient is taking Yessenia D. A COVID-19 test was done apparently from Dr. Brennan's office recently, which was negative. There is no history of any fever or rigors. No history of headache, loss of consciousness, seizures, chest pain or palpitation at this time. PAST MEDICAL HISTORY: History of GERD, DJD, hypothyroidism, migraine, left meningioma, breast surgery. MEDICATIONS: Medications are home medications: Wellbutrin SR, [place] thyroid, progesterone, Protonix, melatonin, Yessneia D. ALLERGIES: CEPHALEXIN, LEVAQUIN, PENICILLIN. FAMILY HISTORY: No history of heart disease or strokes in the family. SOCIAL HISTORY: No history of smoking. No history of alcohol intake. REVIEW OF SYSTEMS: ENT: No diminished hearing or diminished vision. CARDIOVASCULAR SYSTEM: No angina. RESPIRATORY SYSTEM: As mentioned earlier. GI: As mentioned earlier. : No dysuria. NERVOUS SYSTEM: No numbness or weakness. ALLERGY/IMMUNOLOGY: As mentioned earlier. MUSCULOSKELETAL: As mentioned earlier. HEMATOLOGY/ONCOLOGY: No history of anemia. ENDOCRINE: No history of diabetes mellitus. CONSTITUTIONAL: As mentioned earlier. DERMATOLOGY: Negative. RHEUMATOLOGY: Negative. PSYCHIATRY: As mentioned earlier. PHYSICAL EXAMINATION: The patient is alert and oriented x3. Pulse 86, blood pressure 134/81, respiration 18, temperature 97.6, pulse ox 96% on room air. HEENT: Conjunctivae normal. NECK: No jugular venous distention. CARDIOVASCULAR: S1, S2 muffled. RESPIRATORY: Breath sounds diminished at the bases. No rhonchi, no crackles. ABDOMEN: Soft, status post surgery. LEGS: No edema, no swelling. NERVOUS SYSTEM: No focal deficits. SKIN: No ulcer, rash or bleeding. JOINTS: No active deforming arthropathy. LYMPHATICS: No lymphadenopathy of the neck, axillae or groin. LABS: Preoperative labs are CBC within normal limits. Coags are within normal limits. Chemistry showed sodium 136. ASSESSMENT: 1. Status post laparoscopic repair of the paraesophageal hernia with [place] mesh placement and laparoscopic lysis of adhesions. 2. Hyponatremia prior to the admission. 3. History of gastroesophageal reflux disease. 4. History of degenerative joint disease. 5. History of hypothyroidism. 6. History of migraines. 7. History of left meningioma. 8. History of nephrolithiasis. 9. History of benign breast lesions. 10.History of anxiety, depression. 11.Remote history of nicotine dependence. 12.Allergic sinusitis. RECOMMENDATIONS AND DISCUSSION: This 64-year-old woman who presented with multiple medical issues, at this time we will monitor the patient closely. Continue the home medications, incentive spirometry, DVT prophylaxis. We will follow the patient closely with you and patient may be asked to follow up with Dr. Brennan closely. Thank you Dr. Lowry for letting us participate in the care of this patient. MMODL / IJN: [id number] / MTDD
[2020-09-13] MEDS: buPROPion SR 150 MG TABLET.ER PO SCH ×2 (05:08→16:24)
[2020-09-13] MEDS: METOCLOPRAMIDE 5 MG/ML 2 ML VIAL IVP SCH ×4 (05:08→23:15)
[2020-09-13] MEDS: HYDROmorphone 1 MG/ML 1 ML SYRINGE IVP PRN ×3 (05:31→16:24)
[2020-09-13] MEDS: LACTATED RINGERS 1,000 ML IV SCH (08:31)
[2020-09-13] MEDS: ENOXAPARIN 40 MG/0.4 ML SYRINGE SQ SCH (08:31)
[2020-09-13] MEDS: THYROID, PORK 30 MG TAB PO SCH (08:32)
[2020-09-13] MEDS: LORATADINE-PSEUDOEPH 5-120 MG 1 EACH TAB.ER.12H PO SCH ×2 (08:32→20:39)
[2020-09-13] MEDS: D5-0.45% NACL WITH KCL 20MEQ/L 1,000 ML IV SCH ×3 (08:36→23:16)
[2020-09-13 09:40] LABS: Basophils % (A) 0 %; Eosinophils # (A) 0.2 k/uL (0-0.7); Eosinophils % (A) 2 %; HCT 42.3 % (34.0-46.0); HGB 13.6 gm/dL (11.4-16.0); Lymphocytes # (A) 1.7 k/uL (1.0-4.8); Lymphocytes % (A) 24 %; MCH 31.5 pg (25.0-35.0); MCHC 32.2 g/dL (31.0-37.0); MCV 97.8 fL (80.0-100.0); Mean Platelet Volume 7.4; Monocytes # (A) 0.4 k/uL (0-1.0); Monocytes % (A) 5 %; Neutrophils # (A) 4.8 k/uL (1.3-7.7); Neutrophils % (A) 67 %; Platelet Count 299 k/uL (150-450); RBC 4.32 m/uL (3.80-5.40); RDW 12.2 % (11.5-15.5); WBC 7.1 k/uL (3.8-10.6)
[2020-09-13] MEDS: HYDROcodone/APAP 5-325MG 1 EACH TAB PO PRN ×2 (12:24→20:38)
--- NOTE | 2020-09-13 14:29 | P.PN ---
Subjective Progress Note Date: 09/13/20 CHIEF COMPLAINT: Dysphagia and Recurrent paraesophageal hernia HISTORY OF PRESENT ILLNESS: Patient is status post Laparoscopic repair of paraesophageal hernia with [place] bio a mesh placement and Laparoscopic lysis of adhesions. Patient denies any nausea or vomiting. She denies any difficulty swallowing. She is passing gas. She is currently on clindamycin clear liquid diet. Her upper GI showed no evidence of a leak or obstruction. She's afebrile. WBC 7.1 PHYSICAL EXAM: VITAL SIGNS: Reviewed. GENERAL: Well-developed in no acute distress. HEENT: No sclera icterus. Extraocular movements grossly intact. Moist buccal mucosa. Head is atraumatic, normocephalic. ABDOMEN: Soft. Nondistended. Incision sites clean dry and intact NEUROLOGIC: Alert and oriented. Cranial nerves II through XII grossly intact. ASSESSMENT: 1. Dysphagia and Recurrent paraesophageal hernia status post Laparoscopic repair of paraesophageal hernia with [place] bio a mesh placement and Laparoscopic lysis of adhesions. PLAN: -Add [place] to help with pain control -Advance diet to a full liquid diet -Anticipate discharge tomorrow Physician Computer Systems Software Architect note has been reviewed by physician. Signing provider agrees with the documented findings, assessment, and plan of care. Objective - Vital Signs Vital signs: Vital Signs Temp 98 F 09/13/20 13:00 Pulse 88 09/13/20 13:00 Resp 16 09/13/20 13:00 BP 130/79 09/13/20 13:00 Pulse Ox 97 09/13/20 13:00 Intake & Output 09/12/20 09/13/20 09/13/20 18:59 06:59 18:59 Intake Total 1656 1437.5 Output Total 20 Balance 1636 1437.5 Weight 77.1 kg Intake: IV 1656 Intake, IV Titration 1437.5 Amount D5-0.45% NaCl with KCl 1437.5 20Meq/l 1,000 ml @ 125 mls/hr IV .Q8H YASMEEN Rx#: [id number] Output: Estimated Blood Loss 20 Other: Voiding Method Toilet Toilet Toilet # Voids 2 2 - Labs CBC & Chem 7: 09/13/20 07:59
[2020-09-13 15:47] LABS: African American GFR (CKD) 90.9 (60.0-200.0); Anion Gap 8.5 mmol/L (4.00-12.00); BUN/Creat Ratio 8.75 Ratio (12.00-20.00); Calcium 8.4 mg/dL (8.7-10.3); Carbon Dioxide 24.5 mmol/L (21.6-31.8); Non-African American GFR(CKD) 78.5 (60.0-200.0)
--- NOTE | 2020-09-13 15:49 | PN ---
PROGRESS NOTE DATE OF SERVICE: 09/13/2020 This is a 64-year-old woman who was admitted after laparoscopic repair of the paraesophageal hernia is improving significantly. No chest pain. No palpitations. No fever. Pharyngeal larynx fluoroscopy showed no evidence of any leak or significant obstruction. No chest pain. No palpitations. No fever. PHYSICAL EXAMINATION: Alert and oriented x3, pulse 87, blood pressure is 123/80, respiration 18, temperature is 97.7, pulse ox 97% on room air. HEENT: Conjunctivae normal. NECK: No jugular venous distension. HEART: S1, S2, muffled. RESPIRATION: Breath sounds diminished at the bases, no rhonchi, no crackles. ABDOMEN: Soft, nontender. NERVOUS SYSTEM: No focal deficits. LABS: CBC within normal limits. ASSESSMENT: 1. Status post laparoscopic repair of the paraesophageal hernia with [place] mesh placement with laparoscopic lysis of adhesions. 2. Hyponatremia prior to admission. 3. History of gastroesophageal reflux disease. 4. History of DJD. 5. History of hypothyroidism. 6. History of migraines. 7. History of left meningioma. 8. History of nephrolithiasis. 9. History of benign breast lesion. 10.History of anxiety, depression. 11.Remote history of nicotine dependence. 12.Allergic sinusitis. RECOMMENDATION: Recommend to continue current management, continue symptomatic treatment. Repeat BMP also, otherwise, will continue to monitor. Closely follow with surgery, DVT prophylaxis. Further recommendations to follow. MMODL / IJN: [id number] /
[2020-09-13] MEDS: PANTOPRAZOLE 40 MG TABLET PO SCH (20:39)
[2020-09-13] MEDS: MELATONIN 5 MG TABLET PO SCH (20:39)
[2020-09-13] MEDS: NON FORMULARY DRUG (Progesterone, Micronized [Progesterone] 200 MG Capsule) PO SCH (20:42)
[2020-09-14] MEDS: HYDROcodone/APAP 5-325MG 1 EACH TAB PO PRN ×3 (03:04→12:31)
[2020-09-14] MEDS: METOCLOPRAMIDE 5 MG/ML 2 ML VIAL IVP SCH (04:53)
[2020-09-14] MEDS: buPROPion SR 150 MG TABLET.ER PO SCH (04:54)
[2020-09-14] MEDS: HYDROmorphone 1 MG/ML 1 ML SYRINGE IVP PRN (04:58)
[2020-09-14 05:49] VITALS: PULSE 94
[2020-09-14] MEDS: ENOXAPARIN 40 MG/0.4 ML SYRINGE SQ SCH (08:57)
[2020-09-14] MEDS: THYROID, PORK 30 MG TAB PO SCH (08:57)
[2020-09-14] MEDS: LORATADINE-PSEUDOEPH 5-120 MG 1 EACH TAB.ER.12H PO SCH (08:58)
[2020-09-14 09:28] VITALS: BP 127/82; RESP 20; TEMP 97.6
--- NOTE | 2020-09-14 13:04 | P.DS ---
Providers Date of admission: 09/12/20 23:04 Expected date of discharge: 09/14/20 Attending physician: Karan Lowry Consults: 09/12/20 10:27 Consult Physician Routine Consulting Provider: Hood Cruz Consult Reason/Comments: Medical management Do you want consulting provider notified?: Yes Primary care physician: Toni Brennan [facility] Course: Discharge diagnosis 1. Dysphagia and Recurrent paraesophageal hernia status post Laparoscopic repair of paraesophageal hernia with [place] bio a mesh placement and Laparoscopic lysis of adhesions Hospital course This is a 64-year-old female with complaints of dysphagia and history of recurrent paraesophageal hernia. She is status post Laparoscopic repair of paraesophageal hernia with [place] bio a mesh placement and Laparoscopic lysis of adhesions. Patient tolerated surgery well. She is tolerating a diet. Upper GI was negative for leak or obstruction. She is up and ambulating. She is afebrile. Her pain is controlled. She is stable for discharge. Physician Tool Drawing Checker note has been reviewed by physician. Signing provider agrees with the documented findings, assessment, and plan of care. Patient Condition at Discharge: Stable Plan - Discharge Summary Discharge Rx Participant: Yes New Discharge Prescriptions: New Docusate [Colace] 100 mg PO BID #30 capsule Hydrocodone/Acetaminophen [[place] 5-325] 1 tab PO Q4HR PRN 3 Days #18 tab PRN Reason: Pain Continue Thyroid,Pork [[place] Thyroid] 60 mg PO DAILY Adk 1 tab PO DAILY Dim 1 tab PO DAILY Pantoprazole Sodium [Protonix] 40 mg PO HS Progesterone, Micronized [Progesterone] 400 mg PO HS Melatonin 10 mg PO HS Fexofenadine/Pseudoephedrine [Yessenia-D 12 Hour Tablet] 1 each PO BID buPROPion HCL [Wellbutrin SR] 150 mg PO Q12H Discharge Medication List Adk 1 tab PO DAILY 06/30/20 [History] Dim 1 tab PO DAILY 06/30/20 [History] Pantoprazole Sodium [Protonix] 40 mg PO HS 06/30/20 [History] Progesterone, Micronized [Progesterone] 400 mg PO HS 06/30/20 [History] Thyroid,Pork [[place] Thyroid] 60 mg PO DAILY 06/30/20 [History] Melatonin 10 mg PO HS 08/09/20 [History] Fexofenadine/Pseudoephedrine [Yessenia-D 12 Hour Tablet] 1 each PO BID 09/08/20 [History] buPROPion HCL [Wellbutrin SR] 150 mg PO Q12H 09/08/20 [History] Docusate [Colace] 100 mg PO BID #30 capsule 09/14/20 [Rx] Hydrocodone/Acetaminophen [[place] 5-325] 1 tab PO Q4HR PRN 3 Days #18 tab 09/14/20 [Rx] Follow up Appointment(s)/Referral(s): Karan Lowry MD [STAFF PHYSICIAN] - 09/20/20 2:40 pm Activity/Diet/Wound Care/Special Instructions: No driving while taking [place] No lifting over 10 pounds You may shower. No soaking or tub baths for 2 weeks Very light activity until you are reevaluated at your follow up appointment with your surgeon Continue full liquid diet for 2 weeks Discharge Disposition: HOME SELF-CARE
--- NOTE | 2020-09-14 17:56 | PN ---
PROGRESS NOTE DATE OF SERVICE: 09/14/2020 This 64-year-old woman who was admitted after laparoscopic repair of a paraesophageal hernia is improving significantly. No chest pain. No palpitations. No fever. PHYSICAL EXAMINATION: Alert and oriented x3. Pulse 94, blood pressure 127/82, respiration 20, temperature 97.6, pulse ox 97% on room air. HEENT: Conjunctivae normal. NECK: No jugular venous distention. CARDIOVASCULAR SYSTEM: S1, S2 muffled. RESPIRATORY SYSTEM: Breath sounds diminished at the bases. No rhonchi. No crackles. ABDOMEN: Soft. Status post surgery. LEGS: No edema. No swelling. NERVOUS SYSTEM: No focal deficit. LABS: CBC within normal limits. Other labs are noted. ASSESSMENT: 1. Status post laparoscopic repair of paraesophageal hernia with [place] mesh placement with laparoscopic lysis of adhesions. 2. Hyponatremia prior to admission. 3. History of gastroesophageal reflux disease. 4. History of degenerative joint disease. 5. History of hypothyroidism. 6. History of migraines. 7. History of left meningioma. 8. History of nephrolithiasis. 9. History of benign breast lesion. 10.History of anxiety, depression. 11.Remote history of nicotine dependence. 12.Allergic sinusitis. RECOMMENDATIONS AND DISCUSSION: I recommend to continue current medications, continue with the monitoring, symptomatic treatment. I recommend close followup with the primary physician in the outpatient setting. Rest of the recommendations per Dr. Lowry. Further recommendations to follow. MMODL / IJN: [id number] /
== END 2020-09-14 13:55 | disposition home or self-care (01) ==
LOC: OR 07:12 → 5NMEDONC 10:41 → OR 23:04 → 6PED 09-14 05:30
PROVIDERS: ADMIT Surgery; ATTEND Surgery
DX: K44.9 Diaphragmatic hernia without obstruction or gangrene (principal); K66.0 Peritoneal adhesions (postprocedural) (postinfection); K21.9 Gastro-esophageal reflux disease without esophagitis; J45.909 Unspecified asthma, uncomplicated; M19.90 Unspecified osteoarthritis, unspecified site; G43.909 Migraine, unspecified, not intractable, without status migrainosus; D32.0 Benign neoplasm of cerebral meninges; Z98.891 History of uterine scar from previous surgery; Z96.652 Presence of left artificial knee joint; Z87.891 Personal history of nicotine dependence; E87.1 Hypo-osmolality and hyponatremia; E03.9 Hypothyroidism, unspecified; F41.9 Anxiety disorder, unspecified; F32.9 Major depressive disorder, single episode, unspecified; Z79.890 Hormone replacement therapy; Z87.442 Personal history of urinary calculi; Z90.710 Acquired absence of both cervix and uterus; Z98.890 Other specified postprocedural states; Z79.899 Other long term (current) drug therapy; Z82.49 Family history of ischemic heart disease and other diseases of the circulatory system; Z88.1 Allergy status to other antibiotic agents; Z88.0 Allergy status to penicillin
CPT/HCPCS: 80048; 85025; 74210; 43282; G0378 ×3; C1781; J2250; J1644; J1100; J2710; J2765 ×3; S0106 ×3; J2405; J1650 ×2; J3010; J1170 ×4; J1885; J0330; J2704; Q9967

== ENCOUNTER → 2020-09-21 | Outpatient (CLI) | payer OTHER | END | disposition home or self-care (01) | LOC: RADMAMWWP 13:22 | PROVIDERS: ATTEND Obstetrics & Gynecology | DX: Z53.9 Procedure and treatment not carried out, unspecified reason (principal) ==

== ENCOUNTER → 2020-10-05 | Outpatient (CLI) | payer OTHER ==
--- NOTE | 2020-10-05 14:57 | MM ---
Reason for exam: additional evaluation requested from abnormal screening. Last mammogram was performed 1 month ago. History: Patient is postmenopausal. Family history of breast cancer in paternal uncle and breast cancer in paternal grandmother. Excisional biopsy of the left breast, 2003. Excisional biopsy of the right breast, 2002. Took estrogen for 2 years beginning at age 57. Physical Findings: Nurse Summary: 0.5cm nodule in the right breast at 12 o'clock (nurse ms). MG Work Up Mamm w CAD RT Spot compression CC and spot compression MLO view(s) were taken of the right breast. Prior study comparison: September 06, 2020, bilateral MG screening mammo w CAD. March 20, 2019, bilateral MG screening mammo w CAD. The breast tissue is heterogeneously dense. This may lower the sensitivity of mammography. There is no discrete abnormality. These results were verbally communicated with the patient and result sheet given to the patient on 10/05/20. ASSESSMENT: Incomplete: need additional imaging evaluation, BI-RAD 0 RECOMMENDATION: Ultrasound of the right breast.
--- NOTE | 2020-10-05 14:59 | USB ---
Reason for exam: additional evaluation requested from abnormal screening. History: Patient is postmenopausal. Family history of breast cancer in paternal uncle and breast cancer in paternal grandmother. Excisional biopsy of the left breast, 2003. Excisional biopsy of the right breast, 2002. Took estrogen for 2 years beginning at age 57. US Breast Workup Limited RT Technologist: Julita Castro Right limited breast ultrasound including focal area of concern, retroareolar and axilla demonstrates a 0.5 x 0.4 x 0.3cm oval, cystic lesion at 11 o'clock, a 0.6 x 0.5 x 0.4cm lesion at 1 o'clock and a 1.4 x 1.5 x 0.7cm oval, cystic lesion at 12 o'clock. These results were verbally communicated with the patient and result sheet given to the patient on 10/05/20. ASSESSMENT: Probably benign, BI-RAD 3 RECOMMENDATION: Ultrasound of the right breast in 6 months.
== END | disposition home or self-care (01) ==
LOC: RADMAMWWP 13:11
PROVIDERS: ATTEND Obstetrics & Gynecology
DX: R92.8 Other abnormal and inconclusive findings on diagnostic imaging of breast (principal)
CPT/HCPCS: 77065

== ENCOUNTER → 2020-11-11 | Outpatient (CLI) | payer OTHER ==
--- NOTE | 2020-11-11 11:47 | XR ---
EXAMINATION TYPE: XR KUB DATE OF EXAM: 11/11/2020 11:42 AM CLINICAL HISTORY: Left flank pain, history of right-sided kidney stones TECHNIQUE: Single supine KUB image of the abdomen is obtained. COMPARISON: Most recent CT June 30, 2020. FINDINGS: Persistent 4 mm calculus projecting over the level of the left 11th rib. Smaller 3 mm calcu cy lower pole left kidney on CT less well seen on plain films. Similar 4 mm calculus midpole of righ t kidney on CT is well seen on plain films. Overall nonobstructive bowel gas pattern. Visualized osseous structures are intact. Lung bases are no t included. IMPRESSION: As above.
== END | disposition home or self-care (01) ==
LOC: RADXRMAIN 11:30
PROVIDERS: ATTEND Urology
DX: N20.0 Calculus of kidney (principal)
CPT/HCPCS: 74018

== ENCOUNTER 2020-11-14 22:05 | Emergency (ER) | payer OTHER ==
[2020-11-14] MEDS ORDERED: ONDANSETRON 4 MG/2 ML VIAL IVP STA (22:44)
[2020-11-14] MEDS ORDERED: SODIUM CHLORIDE 0.9% 1,000 ML IV STA (22:44)
[2020-11-14] MEDS ORDERED: KETOROLAC 15 MG/ML 1 ML VIAL IVP STA (22:44)
[2020-11-14] MEDS ORDERED: MORPHINE SULFATE 4 MG/ML SYRINGE IV STA (22:44)
--- NOTE | 2020-11-14 22:58 | ED ---
Recheck HPI - General Chief Complaint: Abdominal Pain Stated Complaint: Poss kidney stones Time Seen by Provider: 11/14/20 22:30 Source: patient, family, RN notes reviewed, old records reviewed Mode of arrival: ambulatory - History of Present Illness Initial Comments: This is a 64-year-old female to the ER for evaluation, patient Dese for evaluation kidney stone pain history of kidney stone pain. Some blood in the urine. Patient has recent kidney stones and did have to have a procedure with urology. Otherwise no fevers mild nausea no vomiting. Patient is not pain medication homicidal Manuelito CARRILLO Complaint: other (Worsening pain) -: days(s) Returns Today for: persistent/worsening pain related to initial visit Symptoms Since Prior Visit: worsening pain (Known kidney stones) Context: planned re-check Associated Symptoms: abdominal pain Treatments Prior to Arrival: Given Pain Meds on - Related Data Home Medications Medication Instructions Recorded Confirmed Progesterone, Micronized 400 mg PO HS 06/30/20 11/14/20 [Progesterone] Thyroid,Pork [[place] Thyroid] 60 mg PO DAILY 06/30/20 11/14/20 Melatonin 10 mg PO HS 08/09/20 11/14/20 buPROPion HCL [Wellbutrin SR] 150 mg PO Q12H 09/08/20 11/14/20 Biote Iodine Supplement (Unknown 1 tab PO DAILY 11/14/20 11/14/20 Strength) Biote [place] 3 Supplement (Unknown 1 tab PO DAILY 11/14/20 11/14/20 Strength) Biote Probiotic (Unknown Strength) 1 tab PO DAILY 11/14/20 11/14/20 Biote Vitamin Adk 5 Supplement 1 tab PO DAILY 11/14/20 11/14/20 (Unknown Strength) Botanicalm Pm (Unknown Strength) 2 tab PO HS 11/14/20 11/14/20 Levocetirizine Dihydrochloride 5 mg PO HS 11/14/20 11/14/20 [Xyzal] Magnesium Oxide 800 mg PO HS 11/14/20 11/14/20 Multivitamins, Thera [Multivitamin 1 tab PO DAILY 11/14/20 11/14/20 (formulary)] Potassium Gluconate 550mg 1 tab PO DAILY 11/14/20 11/14/20 Allergies Allergy/AdvReac Type Severity Reaction Status Date / Time cephalexin [From Keflex] Allergy Itching Verified 01/11/21 23:41 levofloxacin [From Levaquin] Allergy SEVERE Verified 11/14/20 23:41 MUSCLE PAIN Penicillins Allergy Itching Verified 11/14/20 23:41 Review of Systems ROS Statement: Those systems with pertinent positive or pertinent negative responses have been documented in the HPI. ROS Other: All systems not noted in ROS Statement are negative. Past Medical History Past Medical History: GERD/Reflux, Osteoarthritis (OA), Thyroid Disorder Additional Past Medical History / Comment(s): Migraines, LEFT MENINGIOMA (TEMPORAL AREA )-monitoring, KIDNEY STONE History of Any Multi-Drug Resistant Organisms: None Reported Past Surgical History: Breast Surgery, Section, Hernia Repair, Hysterectomy, Orthopedic Surgery, Tonsillectomy Additional Past Surgical History / Comment(s): Bilateral breast benign biopsies, umbilical repair x2, total L knee x2, R thumb surgeries for neuromas, bladder suspension X2, panniculectomy, jag fundoplication then another repair done, sinus surgery, LITHROTRIPSY, Past Anesthesia/Blood Transfusion Reactions: No Reported Reaction Additional Past Anesthesia/Blood Transfusion Reaction / Comment(s): HEART RATE WENT UP WITH KIDNEY STONE SURGERY Past Psychological History: Anxiety, Depression Smoking Status: Former smoker Past Alcohol Use History: Rare Past Drug Use History: None Reported - Past Family History Mother Family Medical History: No Reported History Additional Family Medical History / Comment(s): . General Exam General appearance: alert, in no apparent distress Head exam: Present: atraumatic, normocephalic, normal inspection Eye exam: Present: normal appearance, PERRL, EOMI. Absent: scleral icterus, conjunctival injection, periorbital swelling ENT exam: Present: normal exam, mucous membranes moist Neck exam: Present: normal inspection. Absent: tenderness, meningismus, lymphadenopathy Respiratory exam: Present: normal lung sounds bilaterally. Absent: respiratory distress, wheezes, rales, rhonchi, stridor Cardiovascular Exam: Present: regular rate, normal rhythm, normal heart sounds. Absent: systolic murmur, diastolic murmur, rubs, gallop, clicks GI/Abdominal exam: Present: soft, normal bowel sounds. Absent: distended, tenderness, guarding, rebound, rigid Extremities exam: Present: normal inspection, full ROM, normal capillary refill. Absent: tenderness, pedal edema, joint swelling, calf tenderness Back exam: Present: normal inspection Neurological exam: Present: alert, oriented X3, CN II-XII intact Psychiatric exam: Present: normal affect, normal mood Skin exam: Present: warm, dry, intact, normal color. Absent: rash Course Vital Signs 11/14/20 11/15/20 22:14 00:07 Temperature 98.8 F 98.0 F Pulse Rate 100 89 Respiratory 18 16 Rate Blood Pressure 159/86 130/85 O2 Sat by Pulse 98 96 Oximetry - Reevaluation(s) Reevaluation #1: 11/15/20 00:35 Medical record is reviewed Reevaluation #2: 11/15/20 00:35 Patient has no pain control originally, given second dose of pain medicine pain is improved Reevaluation #3: 11/15/20 00:35 Patient feeling better informed results and questions answered, will follow-up with urology Medical Decision Making - Medical Decision Making 64 female DF for evaluation known history of kidney stones pain well-controlled currently. Patient can be discharged home - Lab Data Result diagrams: 11/14/20 23:09 11/14/20 23:09 Lab Results 11/14/20 11/14/20 11/14/20 Range/Units 23:09 23:09 23:09 WBC 10.8 H (3.8-10.6) k/uL RBC 5.04 (3.80-5.40) m/uL Hgb 16.0 (11.4-16.0) gm/dL Hct 46.3 H (34.0-46.0) % MCV 91.8 D (80.0-100.0) fL MCH 31.7 (25.0-35.0) pg MCHC 34.5 (31.0-37.0) g/dL RDW 12.4 (11.5-15.5) % Plt Count 402 (150-450) k/uL MPV 7.5 Neutrophils % 49 % Lymphocytes % 38 % Monocytes % 5 % Eosinophils % 5 % Basophils % 1 % Neutrophils # 5.3 (1.3-7.7) k/uL Lymphocytes # 4.1 (1.0-4.8) k/uL Monocytes # 0.5 (0-1.0) k/uL Eosinophils # 0.5 (0-0.7) k/uL Basophils # 0.1 (0-0.2) k/uL Sodium 136 L (137-145) mmol/L Potassium 4.5 (3.5-5.1) mmol/L Chloride 105 (98-107) mmol/L Carbon Dioxide 23 (22-30) mmol/L Anion Gap 8 mmol/L BUN 25 H (7-17) mg/dL Creatinine 0.84 (0.52-1.04) mg/dL Est GFR (CKD-EPI)AfAm 86 (>60 ml/min/1.73 sqM) Est GFR (CKD-EPI)NonAf 74 (>60 ml/min/1.73 sqM) Glucose 105 H (74-99) mg/dL Plasma Lactic Acid Eduar (0.7-2.0) mmol/L Calcium 10.3 H (8.4-10.2) mg/dL Total Bilirubin 0.4 (0.2-1.3) mg/dL AST 27 (14-36) U/L ALT 21 (4-34) U/L Alkaline Phosphatase 55 (38-126) U/L Troponin I (0.000-0.034) ng/mL Total Protein 7.6 (6.3-8.2) g/dL Albumin 4.3 (3.5-5.0) g/dL Amylase 130 H (30-110) U/L Lipase 219 (23-300) U/L Urine Color Yellow Urine Appearance Cloudy H (Clear) Urine pH 6.5 (5.0-8.0) Ur Specific [place] 1.033 (1.001-1.035) Urine Protein 1+ H (Negative) Urine Glucose (UA) Negative (Negative) Urine Ketones Negative (Negative) Urine Blood Negative (Negative) Urine Nitrite Negative (Negative) Urine Bilirubin Negative (Negative) Urine Urobilinogen <2.0 (<2.0) mg/dL Ur Leukocyte Esterase Large H (Negative) Urine RBC 1 (0-5) /hpf Urine WBC 26 H (0-5) /hpf Ur Squamous Epith Cells 9 H (0-4) /hpf Amorphous Sediment Rare H (None) /hpf Urine Bacteria Rare H (None) /hpf Urine Mucus Rare H (None) /hpf 11/14/20 11/14/20 Range/Units 23:09 23:09 WBC (3.8-10.6) k/uL RBC (3.80-5.40) m/uL Hgb (11.4-16.0) gm/dL Hct (34.0-46.0) % MCV (80.0-100.0) fL MCH (25.0-35.0) pg MCHC (31.0-37.0) g/dL RDW (11.5-15.5) % Plt Count (150-450) k/uL MPV Neutrophils % % Lymphocytes % % Monocytes % % Eosinophils % % Basophils % % Neutrophils # (1.3-7.7) k/uL Lymphocytes # (1.0-4.8) k/uL Monocytes # (0-1.0) k/uL Eosinophils # (0-0.7) k/uL Basophils # (0-0.2) k/uL Sodium (137-145) mmol/L Potassium (3.5-5.1) mmol/L Chloride (98-107) mmol/L Carbon Dioxide (22-30) mmol/L Anion Gap mmol/L BUN (7-17) mg/dL Creatinine (0.52-1.04) mg/dL Est GFR (CKD-EPI)AfAm (>60 ml/min/1.73 sqM) Est GFR (CKD-EPI)NonAf (>60 ml/min/1.73 sqM) Glucose (74-99) mg/dL Plasma Lactic Acid Eduar 0.8 (0.7-2.0) mmol/L Calcium (8.4-10.2) mg/dL Total Bilirubin (0.2-1.3) mg/dL AST (14-36) U/L ALT (4-34) U/L Alkaline Phosphatase (38-126) U/L Troponin I <0.012 (0.000-0.034) ng/mL Total Protein (6.3-8.2) g/dL Albumin (3.5-5.0) g/dL Amylase (30-110) U/L Lipase (23-300) U/L Urine Color Urine Appearance (Clear) Urine pH (5.0-8.0) Ur Specific [place] (1.001-1.035) Urine Protein (Negative) Urine Glucose (UA) (Negative) Urine Ketones (Negative) Urine Blood (Negative) Urine Nitrite (Negative) Urine Bilirubin (Negative) Urine Urobilinogen (<2.0) mg/dL Ur Leukocyte Esterase (Negative) Urine RBC (0-5) /hpf Urine WBC (0-5) /hpf Ur Squamous Epith Cells (0-4) /hpf Amorphous Sediment (None) /hpf Urine Bacteria (None) /hpf Urine Mucus (None) /hpf - Radiology Data Radiology results: report reviewed (CT head and pelvis shows right-sided kidney stones in the kidney), image reviewed Disposition Clinical Impression: Renal colic, Intractable abdominal pain, Kidney stone Disposition: HOME SELF-CARE Condition: Good Instructions (If sedation given, give patient instructions): Kidney Stones (ED) Is patient prescribed a controlled substance at d/c from ED?: No Referrals: Toni Brennan DO [Primary Care Provider] - 1-2 days
--- NOTE | 2020-11-14 23:25 | CT ---
EXAMINATION TYPE: CT abdomen pelvis wo con DATE OF EXAM: 11/14/2020 COMPARISON: 06/30/2020 HISTORY: bilateral flank pain CT DLP: 610.4 mGycm Automated exposure control for dose reduction was used. The lung bases are clear. There is no pleural effusion. Heart size is normal. There are surgical clip s at the gastric fundus. There is small hiatal hernia. Stomach is intact. There are clips from cholec ystectomy. Liver and spleen appear intact. The bile ducts are not dilated. There is no pancreatic mas s. There is no adrenal mass. Kidneys show normal size. There is no hydronephrosis. There are a few bilat eral small renal calculi that measure up to 3 mm. There is no hydronephrosis. Ureters are not dilated . Bladder distends smoothly. There is no retroperitoneal adenopathy. Appendix is posterior and appears normal. There is no evidence of a pelvic mass. There is hysterectom y. There is no mesenteric edema. There is no ascites or free air. There is no bowel obstruction. There i s no inguinal hernia. Lumbar vertebra have normal alignment. Disc spaces are fairly normal. Posterior elements are intact. There is no compression fracture. The bony pelvis is intact. IMPRESSION: No evidence of acute abdomen and pelvis. Multiple nonobstructing renal calculi. There is clearing of the right side hydronephrosis compared to old exam.
[2020-11-14 23:31] LABS: Albumin 4.3 g/dL (3.5-5.0); Calcium 10.3 mg/dL (8.4-10.2); Potassium 4.5 mmol/L (3.5-5.1); Total Bilirubin 0.4 mg/dL (0.2-1.3); Total Protein 7.6 g/dL (6.3-8.2)
[2020-11-14 23:42] LABS: Amorphous Sediment,Urine Rare /hpf; Appearance,Urine Cloudy (Clear); Bacteria,Urine Rare /hpf; Bilirubin,Urine Negative (Negative); Blood,Urine Negative (Negative); Color,Urine Yellow; Glucose,Urine (UA) Negative (Negative); Ketones,Urine Negative (Negative); Leukocyte Esterase,Urine Large (Negative); Mucus,Urine Rare /hpf; Nitrite,Urine Negative (Negative); PH, Urine 6.5 (5.0-8.0); Protein,Urine 1+ (Negative); RBC,Urine 1 /hpf (0-5); Specific Gravity,Urine 1.033 (1.001-1.035); Squamous Epithelial Cell,Urine 9 /hpf (0-4); Urobilinogen,Urine <2.0 mg/dL (<2.0); WBC,Urine 26 /hpf (0-5)
[2020-11-14 23:44] LABS: Basophils # (A) 0.1 k/uL (0-0.2); Basophils % (A) 1 %; Eosinophils # (A) 0.5 k/uL (0-0.7); Eosinophils % (A) 5 %; HCT 46.3 % (34.0-46.0); Lymphocytes # (A) 4.1 k/uL (1.0-4.8); Lymphocytes % (A) 38 %; MCH 31.7 pg (25.0-35.0); MCHC 34.5 g/dL (31.0-37.0); Mean Platelet Volume 7.5; Monocytes # (A) 0.5 k/uL (0-1.0); Monocytes % (A) 5 %; Neutrophils # (A) 5.3 k/uL (1.3-7.7); Neutrophils % (A) 49 %; Platelet Count 402 k/uL (150-450); RBC 5.04 m/uL (3.80-5.40); RDW 12.4 % (11.5-15.5); WBC 10.8 k/uL (3.8-10.6)
[2020-11-14 23:47] LABS: MCV 91.8 fL (80.0-100.0)
[2020-11-15 00:08] VITALS: BP 130/85; PULSE 89; RESP 16; TEMP 98
[2020-11-15] MEDS ORDERED: ACET/COD 300 MG/30 MG STARTER PACK 6 TAB BTL PO STA (00:31)
[2020-11-15] MEDS ORDERED: traMADol 50 MG STARTER PACK 3 TAB BTL PO STA (00:31)
[2020-11-15] MEDS ORDERED: HYDROmorphone 1 MG/ML 1 ML SYRINGE IVP STA (00:31)
== END 2020-11-15 01:07 | disposition home or self-care (01) ==
LOC: EC 22:05
DX: N20.0 Calculus of kidney (principal); F41.9 Anxiety disorder, unspecified; F32.9 Major depressive disorder, single episode, unspecified; E07.9 Disorder of thyroid, unspecified; Z79.899 Other long term (current) drug therapy; Z88.0 Allergy status to penicillin; Z88.1 Allergy status to other antibiotic agents; Z87.891 Personal history of nicotine dependence; Z90.710 Acquired absence of both cervix and uterus
CPT/HCPCS: 36415; 80053; 82150; 83605; 83690; 84484; 85025; 81001; 87086; 74176; 99285; 96374; 96375 ×3; 96361 ×2; J2270; J2405; J1170; J1885

== ENCOUNTER → 2020-12-02 | Outpatient (CLI) | payer OTHER ==
[2020-12-02 11:23] LABS: Basophils # (A) 0.1 k/uL (0-0.2); Basophils % (A) 1 %; Eosinophils # (A) 0.3 k/uL (0-0.7); Eosinophils % (A) 4 %; HCT 46.1 % (34.0-46.0); HGB 15.5 gm/dL (11.4-16.0); Lymphocytes % (A) 30 %; MCHC 33.6 g/dL (31.0-37.0); MCV 92.1 fL (80.0-100.0); Mean Platelet Volume 6.8; Monocytes # (A) 0.3 k/uL (0-1.0); Monocytes % (A) 5 %; Neutrophils # (A) 3.8 k/uL (1.3-7.7); Neutrophils % (A) 58 %; Platelet Count 313 k/uL (150-450); RDW 12.4 % (11.5-15.5); WBC 6.6 k/uL (3.8-10.6)
[2020-12-02 11:31] LABS: Appearance,Urine Clear (Clear); Bilirubin,Urine Negative (Negative); Blood,Urine Negative (Negative); Color,Urine Light Yellow; Glucose,Urine (UA) Negative (Negative); Ketones,Urine Negative (Negative); Leukocyte Esterase,Urine Negative (Negative); Nitrite,Urine Negative (Negative); Protein,Urine Negative (Negative); Specific Gravity,Urine 1.008 (1.001-1.035); Urobilinogen,Urine <2.0 mg/dL (<2.0)
[2020-12-02 11:33] LABS: African American GFR (CKD) >90 (>60 ml/min/1.73 sqM); Anion Gap 8 mmol/L; Blood Urea Nitrogen 19 mg/dL (7-17); Calcium 9.8 mg/dL (8.4-10.2); Carbon Dioxide 27 mmol/L (22-30); Chloride 105 mmol/L (98-107); Glucose 105 mg/dL (74-99); Non-African American GFR(CKD) 79 (>60 ml/min/1.73 sqM); Potassium 4.3 mmol/L (3.5-5.1); Sodium 140 mmol/L (137-145)
== END | disposition home or self-care (01) ==
LOC: LABPAT 10:31
PROVIDERS: ATTEND Urology
DX: Z01.818 Encounter for other preprocedural examination (principal); N20.0 Calculus of kidney; R31.29 Other microscopic hematuria
CPT/HCPCS: 80048; 81003; 85025; 87086

== ENCOUNTER → 2020-12-09 | Day surgery (SDC) | payer OTHER ==
[2020-12-07 13:25] VITALS: BMI 31.5
--- NOTE | 2020-12-08 16:13 | P.HPIHPCON ---
History of Present Illness H&P Date: 12/08/20 Chief Complaint: Left-sided renal stones This is a 64-year-old female with history of a 5 mm left-sided renal stone. She symptomatic secondary to her stone. The option of ESWL ureteroscopy were discussed with her. Risk and benefit of each approach were discussed with her. She understood all risks and agree to proceed with left-sided ureteroscopy. Discussed with her the risk which includes but not limited to bleeding, infection, injury to the ureter. He understood all the risk and agreed to proceed left-sided ureteroscopy, with holmium laser lithotripsy, stone basketing and possible stent placement Consent for Procedure: I have explained the operation/procedure to the patient, including the risks, benefits, side effects, alternative therapies (including not receiving the proposed treatment or service), the likelihood of the patient achieving his/her goals, and potential recuperation problems for the procedure/sedation/analgesia, as well as any blood products, if indicated. I also explained to the patient the risks, benefits and side effects of the alternatives, as well as the risks related to not receiving the proposed procedure, care, treatment, or services. Past Medical History Past Medical History: GERD/Reflux, Osteoarthritis (OA), Thyroid Disorder Additional Past Medical History / Comment(s): Migraines, LEFT MENINGIOMA (TEMPORAL AREA )-monitoring, KIDNEY STONE History of Any Multi-Drug Resistant Organisms: None Reported Past Surgical History: Breast Surgery, Section, Hernia Repair, Hysterectomy, Joint Replacement, Orthopedic Surgery, Tonsillectomy Additional Past Surgical History / Comment(s): Bilateral breast benign biopsies, umbilical repair x2, total L knee x2, R thumb surgeries for neuromas, bladder suspension X2, panniculectomy, jag fundoplication then another repair done, sinus surgery, LITHROTRIPSY, Past Anesthesia/Blood Transfusion Reactions: Previous Problems w/ Anesthesia Additional Past Anesthesia/Blood Transfusion Reaction / Comment(s): HEART RATE WENT UP WITH KIDNEY STONE SURGERY Smoking Status: Former smoker - Past Family History Mother Family Medical History: No Reported History Additional Family Medical History / Comment(s): . Medications and Allergies Home Medications Medication Instructions Recorded Confirmed Type Progesterone, Micronized 400 mg PO HS 06/30/20 12/07/20 History [Progesterone] Thyroid,Pork [[place] Thyroid] 60 mg PO HS 06/30/20 12/07/20 History Melatonin 10 mg PO HS 10/06/20 02/03/21 History buPROPion HCL [Wellbutrin SR] 150 mg PO Q12H 09/08/20 12/07/20 History Biote Iodine Supplement (Unknown 1 tab PO DAILY 11/14/20 12/07/20 History Strength) Biote [place] 3 Supplement (Unknown 1 tab PO DAILY 11/14/20 12/07/20 History Strength) Biote Probiotic (Unknown Strength) 1 tab PO DAILY 11/14/20 12/07/20 History Biote Vitamin Adk 5 Supplement 1 tab PO DAILY 11/14/20 12/07/20 History (Unknown Strength) Botanicalm Pm (Unknown Strength) 2 tab PO HS 11/14/20 12/07/20 History Levocetirizine Dihydrochloride 5 mg PO HS 11/14/20 12/07/20 History [Xyzal] Magnesium Oxide 800 mg PO HS 11/14/20 12/07/20 History Multivitamins, Thera [Multivitamin 1 tab PO DAILY 11/14/20 12/07/20 History (formulary)] Potassium Gluconate 550mg 1 tab PO DAILY 11/14/20 12/07/20 History Allergies Allergy/AdvReac Type Severity Reaction Status Date / Time cephalexin [From Keflex] Allergy Itching Verified 12/07/20 13:20 levofloxacin [From Levaquin] Allergy SEVERE Verified 12/07/20 13:20 MUSCLE PAIN Penicillins Allergy Itching Verified 12/07/20 13:20 codeine AdvReac GI Upset Verified 12/07/20 13:20 [From Tylenol-Codeine #3] Surgical - Exam - General well developed, well nourished, no distress, moderate pain - ENT normal nares, normal mucosa - Respiratory normal expansion, normal respiratory effort - Psychiatric oriented to time, oriented to person, oriented to place Assessment and Plan Assessment: 64-year-old female history of left-sided renal cell -Or for left-sided ureteroscopy, holmium laser lithotripsy, stone basketing and possible stent placement
[~2020-12-09] MED LIST changes: -ACETAMINOPHEN TAB 500 MG TAB PO ONE; -CLINDAMYCIN 900 MG in DEXTROSE 5% IN WATER 50 ML IVPB ONE; +GENTAMICIN 120 MG in SODIUM CHLORIDE 0.9% 100 ML IVPB PRN; -HEPARIN SODIUM,PORCINE 5,000 UNIT/ML 1 ML VIAL SQ ONE; +HYDROcodone/APAP 5-325MG 1 EACH TAB ONE; +HYDROcodone/APAP 5-325MG 1 EACH TAB PO ONE; +HYDROmorphone 1 MG/ML 1 ML SYRINGE IVP ONE; +IOPAMIDOL-370 50ML BTL MISCELLANE ONE; +KETOROLAC 15 MG/ML 1 ML VIAL IVP ONE; +LIDOCAINE 1% INJ 10MG/ML (20 ML MDV) ONE; +MIDAZOLAM 2 MG/2 ML VIAL ONE; +PHENYLEPHRINE 10 MG/ML VIAL ONE; +PROPOFOL 10 MG/ML 20 ML VIAL IV ONE; +ROCURONIUM 10 MG/ML (10 ML VIAL) IV ONE; +SUCCINYLCHOLINE CHLORIDE 100 MG/5 ML SYR IV ONE; +fentaNYL (PF) 50 MCG/ML 2 ML AMP IV ONE; +fentaNYL (PF) 50 MCG/ML 2 ML AMP IV PRN; +fentaNYL (PF) 50 MCG/ML 2 ML AMP ONE
--- NOTE | 2020-12-09 11:52 | XR ---
EXAMINATION TYPE: XR KUB DATE OF EXAM: 12/09/2020 COMPARISON: NONE HISTORY: Pain TECHNIQUE: Single supine KUB image of the abdomen is obtained FINDINGS: Small bowel demonstrates no evidence for dilatation or air fluid levels. Gas and fecal material is seen in non-distended colon. Moderate fecal stasis noted. No convincing evidence for pneumoperitoneum. No unusual calcifications. The lung bases are clear. The osseous structures are intact. IMPRESSION: 1. Overall nonobstructive bowel gas pattern.
[2020-12-09] MEDS: LACTATED RINGERS 1,000 ML IV SCH ×2 (12:41→15:46)
[2020-12-09 12:45] VITALS: TEMP 96.9
--- NOTE | 2020-12-09 14:29 | P.OP ---
Date of Procedure: 12/09/20 Preoperative Diagnosis: Bilateral renal calculi Postoperative Diagnosis: Same Procedure(s) Performed: Cystoscopy, bilateral retrograde pyelogram, ureteroscopy, holmium laser lithotripsy, stent placement, and right sided stone basketing Implants: 4.8-Japanese by 24 cm stent bilaterally Anesthesia: DANIEL Surgeon: Lamonte Pinedo Estimated Blood Loss (ml): 5 Pathology: other (Right-sided renal stones) Condition: stable Disposition: PACU Indications for Procedure: This is 64-year-old female with history of bilateral renal stones. She underwent a CT scan that demonstrated evidence 5 mm left-sided renal stone, 3 mm right-sided renal stone. She's been complaining of bilateral flank pain. Discussed with her the option of ESWL versus ureteroscopy. Discussed the risk and benefit of each approach. She agreed to proceed with bilateral ureteroscopy. Discussed the risk which includes but not limited to bleeding, infection, injury to the ureter. Also discussed with her given that they're not obstructive stone there is a potential's he could still flank pain despite stone treatment. She understood all the risk and agreed to proceed with bilateral ureteroscopy with holmium laser lithotripsy Operative Findings: Multiple small stones throughout the left kidney, all measured approximately 1 mm, large stone in the mid calyx on the right Description of Procedure: She was brought to the operating room, general anesthesia was induced. She was prepped and draped in sterile fashion a placemed in dorsal lithotomy position. Cystoscopy fitted with a 21-Japanese sheath was inserted per urethra, cystoscopy was performed which showed no abnormality within the bladder. Attention was then carried to the left ureteral orifice which was intubated with a 6-Japanese open-ended catheter, retrograde pyelogram was performed which showed no hydronephrosis or filling defect. Next a sensor wire was advanced through the catheter and the catheter was removed with the wire in place. Next an 1113 Japanese access sheath was passed over the wire and into the proximal ureter. Next the flexible ureteroscope was inserted through the access sheath, renoscopy was performed which showed no evidence of large stones on the left, most likely she has passed her 5 mm left-sided renal stone, but of note there were multiple small stones throughout the kidney that were dusted using the holmium laser. Repeat renoscopy showed no sizable fragments or injury to the kidney. Retrograde pyelogram was performed to ensure all calyces were evaluated. Pullback ureteroscopy demonstrated no injury to the ureter. At this time the cystoscope was reinserted, and the right ureteral orifice was intubated with a 6-Japanese open-ended catheter, retrograde pyelogram was performed on the right which showed no filling defect or hydronephrosis. Next a sensor wire was advanced through the catheter, the catheter was removed with the wire in place. Next a 1113 Japanese access sheath was passed over the wire under fluoroscopy int o the proximal ureter. The ureteroscope was advanced through the access sheath, renoscopy was performed which showed a large stone within the mid calyx on the right. Using the holmium laser the stone was fragmented into small fragments, sizable fragments were removed using the stone basket. Repeat renoscopy showed no sizable fragments or injury to the kidney. Pullback ureteroscopy was performed which showed no injury to the ureter. Next a cystoscope was reinserted and the left ureteral orifice was intubated with a sensor wire, a ureteral stent was passed over the wire, the proximal curl was visualized on fluoroscopy and distal curl was visualized using the cystoscope. The stent was also placed on the right, with visual confirmation of the distal curl and the proximal curl was visualized on fluoroscopy. The bladder was emptied and the case. The stone were sent for analysis. The patient tolerated the procedure well was taken to PACU in stable condition
--- NOTE | 2020-12-09 14:36 | FL ---
EXAMINATION TYPE: FL urography retrograde DATE OF EXAM: 12/09/2020 CLINICAL HISTORY: Bilateral kidney stone. TECHNIQUE: Fluoroscopy. COMPARISON: Same day abdominal x-ray. FINDINGS: Fluoroscopic guidance was provided during procedure retrograde ureterogram with lithotrips y treatment and stent insertion procedure bilaterally performed by Dr. Stoll. A total of 35 seconds of fluoroscopic time was utilized during the procedure and four spot images was acquired. Please ref er to procedure note for further details as I was not present nor performed procedure. IMPRESSION: As Above.
[2020-12-09 15:53] VITALS: BP 135/73; PULSE 109; RESP 17
== END ==
LOC: OR 11:30
PROVIDERS: ATTEND Urology
DX: N20.0 Calculus of kidney (principal); K21.9 Gastro-esophageal reflux disease without esophagitis; E07.9 Disorder of thyroid, unspecified; M19.90 Unspecified osteoarthritis, unspecified site; G43.909 Migraine, unspecified, not intractable, without status migrainosus; Z88.0 Allergy status to penicillin; Z88.1 Allergy status to other antibiotic agents; Z88.5 Allergy status to narcotic agent; Z79.890 Hormone replacement therapy; Z79.899 Other long term (current) drug therapy; Z87.442 Personal history of urinary calculi; Z98.891 History of uterine scar from previous surgery; Z90.710 Acquired absence of both cervix and uterus; Z98.890 Other specified postprocedural states; Z96.652 Presence of left artificial knee joint; Z87.891 Personal history of nicotine dependence
CPT/HCPCS: 82365; 74420; 74018; 52356; C2625; C1758; C1769; J2250; J1100; J2370; J2405; J2001; J3010; J1580; J1170; J1885; J0330; J2704; Q9967

== ENCOUNTER 2021-01-06 09:55 | Day surgery (SDC) | payer OTHER ==
[2021-01-04 09:27] VITALS: BMI 31.8
[~2021-01-06 09:55] MED LIST changes: -DEXAMETHASONE SOD PHOSPHATE 4 MG/ML 1 ML VIAL IV ONE; -GENTAMICIN 120 MG in SODIUM CHLORIDE 0.9% 100 ML IVPB PRN; -HYDROcodone/APAP 5-325MG 1 EACH TAB ONE; -HYDROcodone/APAP 5-325MG 1 EACH TAB PO ONE; -HYDROmorphone 1 MG/ML 1 ML SYRINGE IVP ONE; -IOPAMIDOL-370 50ML BTL MISCELLANE ONE; -KETOROLAC 15 MG/ML 1 ML VIAL IVP ONE; +LACTATED RINGERS 1,000 ML IV SCH; -LIDOCAINE 1% INJ 10MG/ML (20 ML MDV) ONE; -MIDAZOLAM 2 MG/2 ML VIAL IV PRN; -MIDAZOLAM 2 MG/2 ML VIAL ONE; -ONDANSETRON 4 MG/2 ML VIAL IVP ONE; -PHENYLEPHRINE 10 MG/ML VIAL ONE; -PROPOFOL 10 MG/ML 20 ML VIAL IV ONE; -ROCURONIUM 10 MG/ML (10 ML VIAL) IV ONE; -SCOPOLAMINE 1.5MG/72HR PATCH TRANSDERM ONE; -SUCCINYLCHOLINE CHLORIDE 100 MG/5 ML SYR IV ONE; -fentaNYL (PF) 50 MCG/ML 2 ML AMP IV ONE; -fentaNYL (PF) 50 MCG/ML 2 ML AMP IV PRN; -fentaNYL (PF) 50 MCG/ML 2 ML AMP ONE
[2021-01-06 11:29] VITALS: RESP 16; TEMP 98
[2021-01-06] MEDS ORDERED: LIDOCAINE 1% (10MG/ML) FOR IV START INTRADERMA ONE (11:35)
[2021-01-06] MEDS ORDERED: PROPOFOL 10 MG/ML 20 ML VIAL IV ONE (12:36)
--- NOTE | 2021-01-06 12:47 | P.GSHP ---
History of Present Illness H&P Date: 01/06/21 Chief Complaint: Screening colonoscopy Cyst 65-year-old female who presents today for screening colonoscopy. Patient complaints of some left-sided abdominal pain. Past Medical History Past Medical History: GERD/Reflux, Osteoarthritis (OA), Thyroid Disorder Additional Past Medical History / Comment(s): Migraines, LEFT MENINGIOMA (TEMPORAL AREA )-monitoring, KIDNEY STONE History of Any Multi-Drug Resistant Organisms: None Reported Past Surgical History: Breast Surgery, Section, Hernia Repair, Hysterectomy, Orthopedic Surgery, Tonsillectomy Additional Past Surgical History / Comment(s): Bilateral breast benign biopsies, umbilical repair x2, total L knee x2, R thumb surgeries for neuromas, bladder suspension X2, panniculectomy, jag fundoplication then another repair done, sinus surgery, LITHROTRIPSY, Past Anesthesia/Blood Transfusion Reactions: Previous Problems w/ Anesthesia Additional Past Anesthesia/Blood Transfusion Reaction / Comment(s): HEART RATE WENT UP WITH KIDNEY STONE SURGERY Smoking Status: Former smoker - Past Family History Mother Family Medical History: No Reported History Additional Family Medical History / Comment(s): . Medications and Allergies Home Medications Medication Instructions Recorded Confirmed Type Progesterone, Micronized 400 mg PO HS 06/30/20 01/06/21 History [Progesterone] Thyroid,Pork [[place] Thyroid] 60 mg PO DAILY 06/30/20 01/06/21 History Melatonin 10 mg PO HS 08/09/20 01/06/21 History buPROPion HCL [Wellbutrin SR] 150 mg PO Q12H 09/08/20 01/06/21 History Biote Iodine Supplement (Unknown 1 tab PO DAILY 11/14/20 01/06/21 History Strength) Biote [place] 3 Supplement (Unknown 1 tab PO DAILY 11/14/20 01/06/21 History Strength) Biote Probiotic (Unknown Strength) 1 tab PO DAILY 11/14/20 01/06/21 History Biote Vitamin Adk 5 Supplement 1 tab PO DAILY 11/14/20 01/06/21 History (Unknown Strength) Botanicalm Pm (Unknown Strength) 2 tab PO HS 11/14/20 01/06/21 History Magnesium Oxide 800 mg PO HS 11/14/20 01/06/21 History Multivitamins, Thera [Multivitamin 1 tab PO DAILY 11/14/20 01/06/21 History (formulary)] Potassium Gluconate 550mg 2 tab PO DAILY 11/14/20 01/06/21 History Fluticasone Propionate [Flovent 1 puff INHALATION BID 01/04/21 01/06/21 History Hfa 110 mcg] guaiFENesin [Mucinex] 1,200 mg PO BID 01/04/21 01/06/21 History Allergies Allergy/AdvReac Type Severity Reaction Status Date / Time cephalexin [From Keflex] Allergy Itching Verified 01/06/21 11:24 levofloxacin [From Levaquin] Allergy SEVERE Verified 01/06/21 11:24 MUSCLE PAIN Penicillins Allergy Itching Verified 01/06/21 11:24 codeine AdvReac GI Upset Verified 01/06/21 11:24 [From Tylenol-Codeine #3] Surgical - Exam Vital Signs Temp Pulse Resp BP Pulse Ox 98.0 F 83 16 166/90 97 01/06/21 11:25 01/06/21 11:25 01/06/21 11:25 01/06/21 11:25 01/06/21 11:25 - General well developed, well nourished - Eyes PERRL - ENT normal pinna - Neck no masses - Respiratory normal expansion - Cardiovascular Rhythm: regular - Abdomen Abdomen: soft, non tender Assessment and Plan Assessment: We'll perform screening colonoscopy
--- NOTE | 2021-01-06 13:02 | P.OP ---
Date of Procedure: 01/06/21 Preoperative Diagnosis: Screening colonoscopy Postoperative Diagnosis: Rectal polyp h Internal and external hemorrhoids Procedure(s) Performed: Colonoscopy Anesthesia: MAC Surgeon: Karan Lowry Pathology: other (Polyp) Condition: stable Disposition: PACU Description of Procedure: The patient's placed on the endoscopy table in the lateral position. She received IV sedation. The digital rectal was performed which revealed external hemorrhoids. The flexible colonoscope was then placed patient anus passed rotator entire colon. The ileocecal valve lesions. The cecum, ascending and transverse colon appeared normal. The descending and sigmoid colon appeared normal. Scope was brought back the rectum and there was a small polyp seen this removed with the snare and cold forcep. Scope was then withdrawn from patient.
[2021-01-06 13:06] VITALS: BP 122/64; PULSE 91
== END 2021-01-06 13:37 | disposition home or self-care (01) ==
LOC: ORWHC2ENDO 09:55
PROVIDERS: ATTEND Surgery
DX: Z12.11 Encounter for screening for malignant neoplasm of colon (principal); K62.1 Rectal polyp; K64.4 Residual hemorrhoidal skin tags; K64.8 Other hemorrhoids; K21.9 Gastro-esophageal reflux disease without esophagitis; M19.90 Unspecified osteoarthritis, unspecified site; E07.9 Disorder of thyroid, unspecified; Z79.890 Hormone replacement therapy; Z79.899 Other long term (current) drug therapy; Z87.442 Personal history of urinary calculi; Z87.891 Personal history of nicotine dependence; Z88.1 Allergy status to other antibiotic agents; Z88.0 Allergy status to penicillin; Z88.5 Allergy status to narcotic agent; Z88.6 Allergy status to analgesic agent
CPT/HCPCS: 88305; 45385; J2704; 45380

== ENCOUNTER → 2021-02-13 | Outpatient (CLI) | payer OTHER ==
--- NOTE | 2021-02-14 08:08 | US ---
EXAMINATION TYPE: US abdomen complete DATE OF EXAM: 02/13/2021 COMPARISON: CT abdomen and pelvis November 14, 2020 CLINICAL HISTORY: R10.84 generalized pain. left lower abdominal pain, cholecystectomy, lithotripsy EXAM MEASUREMENTS: Liver Length: 14.0 cm Gallbladder Wall: Surgically absent CBD: 0.9 cm Spleen: 9.5 cm Right Kidney: 10.4 x 4.3 x 4.2 cm Left Kidney: 10.8 x 5.3 x 4.7 cm Pancreas: Tail obscured by overlying bowel gas Liver: wnl Gallbladder: Surgically absent Evidence for sonographic Hirsch's sign: no CBD: wnl Spleen: wnl Right Kidney: possible stone lower pole = 0.4cm Left Kidney: no evidence of hydronephrosis Upper IVC: wnl Abd Aorta: wnl The visualized liver is homogenous. The intrahepatic portion of the IVC and visualized abdominal aor ta are within normal limits. Gallbladder noted surgically absent. Common bile duct is within normal limits after cholecystectomy. The visualized portions of the pancreas are homogenous. The spleen is unremarkable. Kidneys are symmetric and free of hydronephrosis. Lower pole right kidney is 4 mm hyp erechoic focus could reflect nonobstructing calculi. Smaller nonobstructing calculi seen on compariso n CT. IMPRESSION: No hydronephrosis bilaterally or acute findings identified.
== END | disposition home or self-care (01) ==
LOC: RADUSWWP 07:28
PROVIDERS: ATTEND Surgery
DX: R10.84 Generalized abdominal pain (principal)
CPT/HCPCS: 76700

== ENCOUNTER → 2021-04-06 | Outpatient (CLI) | payer OTHER ==
--- NOTE | 2021-04-06 15:09 | USB ---
Reason for exam: clinical finding. History: Patient is postmenopausal. Family history of breast cancer in paternal uncle and breast cancer in paternal grandmother. Excisional biopsy of the left breast, 2003. Excisional biopsy of the right breast, 2002. Took estrogen for 2 years beginning at age 57. Indicated problem(s): bloody discharge and lump or thickening in the right breast. Physical Findings: Nurse Summary: tender and nodule throughout (nurse db). US Breast Limited RT Technologist: Julita Castro Right limited breast ultrasound including focal area of concern, retroareolar and axilla demonstrates a 1.6 x 1.5 x 0.7cm cystic, simple cyst at 12 o'clock, a 0.6 x 0.4 x 0.4cm hyperechoic lipoma at 12 o'clock, a 0.6 x 0.5 x 0.4cm hypoechoic, stable, suspicious lesion at 1 o'clock, a 0.6 x 0.7 x 0.4cm hypoechoic, solid, suspicious lesion at the subareolar nipple and a 0.7 x 0.4 x 0.2cm lesion at 9 o'clock. These results were verbally communicated with the patient and result sheet given to the patient on 04/06/21. ASSESSMENT: Suspicious, BI-RAD 4 RECOMMENDATION: Ultrasound core biopsy of the right breast. (x 2) MRI for bloody nipple discharge. Called Dr. Wilkerson's office with mammographic findings and has scheduled an appointment for the patient for 04/18/21 at 3:[address] Lowry. Biopsy scheduled for 04/26/21 at 1:00. PRELIMINARY REPORT CALLED AND FAXED TO DR. LOWRY ON 04/06/21.
== END | disposition home or self-care (01) ==
LOC: RADUSWWP 09:11
PROVIDERS: ATTEND Obstetrics & Gynecology
DX: N60.01 Solitary cyst of right breast (principal); N64.52 Nipple discharge; Z78.0 Asymptomatic menopausal state; Z80.3 Family history of malignant neoplasm of breast

== ENCOUNTER → 2021-04-26 | Day surgery (SDC) | payer OTHER ==
[2021-04-26 12:14] VITALS: RESP 16
[2021-04-26 13:48] VITALS: BP 112/68; PULSE 81; TEMP 98.1
--- NOTE | 2021-04-26 14:03 | USB ---
EXAMINATION TYPE: US biopsy breast VAD RT, MG diagnostic mammo RT wo CAD DATE OF EXAM: 04/26/2021 CLINICAL HISTORY: R92.8 Abnormal mammogram. Right bloody nipple discharge TECHNIQUE: Ultrasound guided core biopsy of right breast. COMPARISON: 10/05/2020, 04/06/2021, 03/17/2018 FINDINGS: Prebiopsy scan of the right breast demonstrates a 0.5 x 0.4 x 0.5 cm ovoid hypoechoic lesion in the right breast at 1:00 6 cm from the nipple which is not significantly changed since October 2020. Additionally, patient has ultrasound proven bilateral cysts and due to the rule of multiplicity and bilaterality, this lesion is presumed benign and was therefore not biopsy. The right breast 3- 4:00 subareolar region was redemonstrated and planned for biopsy. The procedure of ultrasound guided core biopsy was explained to the patient. Benefits, alternatives, and risks were discussed. An informed consent was then obtained. The patient was placed in supine positioning for imaging and for the procedure. The overlying skin was prepped and draped in usual sterile fashion. Lidocaine buffered with bicarbonate was used as anesthetic into the skin and subcutaneous tissue up to area of concern in the 3:00 subareolar right breast. A zion was made with surgical scalpel. Under ultrasound guidance, a 12-gauge vacuum assisted biopsy gun device was used to obtain 3 core samples. Following this, a biopsy clip was left in lesion. The patient tolerated the procedure well without any immediate complication. The patient was kept in the radiology department for short stay after the procedure and then discharged home in stable condition. Postprocedure mammogram demonstrates the biopsy clip within the expected location of the right breast. IMPRESSION: Successful, uncomplicated ultrasound guided core biopsy of area of concern in the right breast, full pathology results to follow. Pathology Results: Benign RIGHT BREAST, NIPPLE/SUB AREOLAR, CORE BIOPSY: Sclerotic fibroadenoma with fibrocystic change, columnar cell change, focal apocrine metaplasia and focal mild usual ductal hyperplasia. Recommendation Follow up ultrasound of the right breast in 6 months. MEERAD
== END ==
LOC: RADUSWWP 11:21
PROVIDERS: ATTEND Surgery
DX: D24.1 Benign neoplasm of right breast (principal); N60.11 Diffuse cystic mastopathy of right breast; N60.81 Other benign mammary dysplasias of right breast; N62 Hypertrophy of breast; R92.8 Other abnormal and inconclusive findings on diagnostic imaging of breast; Z88.1 Allergy status to other antibiotic agents; Z88.5 Allergy status to narcotic agent; Z88.0 Allergy status to penicillin
CPT/HCPCS: 88305; 77065; 19083; A4648; J2001

== ENCOUNTER → 2021-04-26 | Outpatient (CLI) | payer OTHER ==
--- NOTE | 2021-04-26 07:40 | MR ---
EXAMINATION TYPE: MR ankle LT wo con DATE OF EXAM: 04/26/2021 COMPARISON: None HISTORY: Sprain of left ankle Standard multiplanar, multisequence MRI departmental protocol Multiplanar, multisequence images of the left ankle were acquired. Diffusion weighted imaging was per formed. FINDINGS: Tendons: The Achilles tendon is intact but there is retrocalcaneal fluid. The medial, lateral and anterior ten dons are intact. Ligaments: The anterior and posterior tibiofibular and talofibular ligaments are intact. The deltoid ligament is intact. The calcaneofibular ligament is intact. Plantar fascia: There is slight edema surrounding the plantar fascia, such as can be seen in plantar fasciitis. Sinus tarsi: There is preservation of the normal fatty signal seen in the sinus tarsi. Ankle joint: No osteochondral defect is identified. No significant ankle joint effusion. The articular cartilage o f the ankle joint demonstrates partial-thickness defects anteriorly. Subtalar: The subtalar joint is unremarkable. No evidence for coalition. Bone marrow: There is bone marrow edema of the fifth metatarsal mid diaphysis which is incompletely included on th is study. Muscle: Visualized musculature is unremarkable. Other: There is subcutaneous edema about the mid foot and ankle. IMPRESSION: 1. Retrocalcaneal bursitis. 2. Plantar fasciitis. 3. Partial-thickness articular cartilage defects of the ankle joint. 4. Subcutaneous edema about the midfoot and ankle. 5. Nonspecific bone marrow edema of the fifth metatarsal mid diaphysis which is incompletely included . Please correlate clinically for point tenderness in this region. Dedicated imaging could be obtaine d if clinically warranted.
== END | disposition home or self-care (01) ==
LOC: RADMRIMAIN 05:58
PROVIDERS: ATTEND Orthopaedic Surgery
DX: S93.402A Sprain of unspecified ligament of left ankle, initial encounter (principal); M72.2 Plantar fascial fibromatosis; M77.52 Other enthesopathy of left foot and ankle; M24.172 Other articular cartilage disorders, left ankle

== ENCOUNTER → 2021-05-18 | Outpatient (CLI) | payer OTHER ==
[2021-05-19 01:17] LABS: Basophils # (A) 0.05 X 10*3/uL (0.00-0.10); Basophils % (A) 0.5 %; Eosinophils # (A) 0.16 X 10*3/uL (0.04-0.35); Eosinophils % (A) 1.7 %; HCT 44.1 % (37.2-46.3); Lymphocytes # (A) 2.32 X 10*3/uL (0.90-5.00); Lymphocytes % (A) 24.3 %; MCH 31.4 pg (27.0-32.0); MCV 92.5 fL (80.0-97.0); Mean Platelet Volume 11.1 fL (9.5-12.2); Monocytes # (A) 0.61 X 10*3/uL (0.20-1.00); Monocytes % (A) 6.4 %; Neutrophils # (A) 6.39 X 10*3/uL (1.80-7.70); Platelet Count 320 X 10*3/uL (140-440); RBC 4.77 X 10*6/uL (4.10-5.20); RDW 12.3 % (11.5-14.5); WBC 9.54 X 10*3/uL (4.50-10.00)
== END | disposition home or self-care (01) ==
LOC: LABWHC1 15:36
PROVIDERS: ATTEND Orthopaedic Surgery
DX: Z01.812 Encounter for preprocedural laboratory examination (principal)
CPT/HCPCS: 36415; 85025; 86850; 86900; 86901

== ENCOUNTER → 2021-05-23 | Outpatient (CLI) | payer OTHER ==
--- NOTE | 2021-05-24 11:04 | MR ---
EXAMINATION TYPE: MR brain wo/w con DATE OF EXAM: 05/23/2021 COMPARISON: MR brain 09/07/2020 HISTORY: Meningioma TECHNIQUE: Multiplanar, multisequence images of the brain and brainstem is performed without and with IV contras t, utilizing 7.5 mL intravenous Gadavist . FINDINGS: Diffusion weighted images demonstrate no evidence of a recent infarct or other diffusion ab normality. There is no extra-axial fluid collection or significant white matter signal abnormality. The ventricular system and cisternal spaces are normal in size and appearance. The brain volume is age appropriate. Midline structures demonstrate normal morphology. The craniocervical junction appears within normal limits. Post contrast images demonstrate enhancement of the dural based lesion along the medial aspe ct of the left middle cranial fossa, the lesion is slightly increased in size measuring approximately 15 mm in diameter as opposed to prior when it measured approximately 14 mm. The dural venous sinuses appear patent. The visualized sinuses are showing some minimal mucoperiosteal thickening ethmoid air cells, maxillary sinus and the globes are intact. IMPRESSION: Findings consistent with patient's history of meningioma, only minimal interval change durant spected
== END | disposition home or self-care (01) ==
LOC: RADMRIMAIN 08:17
PROVIDERS: ATTEND Otolaryngology
DX: D32.9 Benign neoplasm of meninges, unspecified (principal)
CPT/HCPCS: 70553; A9585

== ENCOUNTER → 2021-10-30 | Outpatient (CLI) | payer OTHER ==
--- NOTE | 2021-10-30 10:48 | MM ---
Reason for exam: follow-up at short interval from prior study. Last mammogram was performed 6 months ago. History: Patient is postmenopausal. Family history of breast cancer in paternal uncle and breast cancer in paternal grandmother. Benign US biopsy breast VAD RT of the right breast, April 26, 2021. Excisional biopsy of the left breast, 2003. Excisional biopsy of the right breast, 2002. Taking estrogen for 2 years beginning at age 57. Taking progesterone beginning at age 57. Taking other hormone. Physical Findings: Nurse did not find any significant physical abnormalities on exam. MG 3D Diag Mammo W/Cad RT CC and MLO view(s) were taken of the right breast. Prior study comparison: April 26, 2021, right breast MG diagnostic mammo RT wo CAD. October 05, 2020, right breast MG work up mamm w CAD RT. The breast tissue is heterogeneously dense. This may lower the sensitivity of mammography. Finding: There are stable fine, regional calcifications in the upper quadrant, middle position of the right breast. Previous mammotome biopsy in the right breast. No significant changes in finding since April 26, 2021 and October 05, 2020. These results were verbally communicated with the patient and result sheet given to the patient on 10/30/21. ASSESSMENT: Benign, BI-RAD 2 RECOMMENDATION: Routine screening mammogram of both breasts in 6 months. Back on schedule for April 2022.
== END | disposition home or self-care (01) ==
LOC: RADMAMWWP 08:32
PROVIDERS: ATTEND Surgery
DX: R92.1 Mammographic calcification found on diagnostic imaging of breast (principal); R92.2 Inconclusive mammogram; Z80.3 Family history of malignant neoplasm of breast; Z78.0 Asymptomatic menopausal state
CPT/HCPCS: 77061; 77065

== ENCOUNTER → 2022-01-23 | Outpatient (CLI) | payer MEDICARE | END | disposition home or self-care (01) | LOC: LABPAT 13:48 | PROVIDERS: ATTEND Surgery | DX: Z53.9 Procedure and treatment not carried out, unspecified reason (principal) ==

== ENCOUNTER → 2022-01-29 | Outpatient (CLI) | payer MEDICARE ==
[2022-01-29 22:22] LABS: Basophils % (A) 1.1 %; Eosinophils % (A) 2.2 %; HCT 43.8 % (37.2-46.3); HGB 14.7 g/dL (12.0-15.0); Immature Grans, Automated 0.1 %; Lymphocytes # (A) 2.44 X 10*3/uL (0.90-5.00); MCH 31.3 pg (27.0-32.0); MCHC 33.6 g/dL (32.0-37.0); MCV 93.2 fL (80.0-97.0); Mean Platelet Volume 10.9 fL (9.5-12.2); Monocytes # (A) 0.49 X 10*3/uL (0.20-1.00); Monocytes % (A) 5.4 %; NRBC Per 100 WBC 0 /100 WBCS (0.0-0.0); Neutrophils % (A) 64.2 %; Platelet Count 322 X 10*3/uL (140-440); RDW 12.1 % (11.5-14.5); WBC 9.04 X 10*3/uL (4.50-10.00)
== END | disposition home or self-care (01) ==
LOC: LABPAT 15:14
PROVIDERS: ATTEND Surgery
DX: Z01.812 Encounter for preprocedural laboratory examination (principal); K43.0 Incisional hernia with obstruction, without gangrene
CPT/HCPCS: 36415; 85025; 93005

== ENCOUNTER → 2022-04-09 | Outpatient (CLI) | payer MEDICARE ==
--- NOTE | 2022-04-10 01:52 | XR ---
EXAMINATION TYPE: XR KUB DATE OF EXAM: 04/09/2022 COMPARISON: X-ray dated 12/09/2020 INDICATION: Kidney stone TECHNIQUE: AP view of the abdomen and pelvis. FINDINGS: The renal shadows are obscured by the overlying bowel gas and fecal material. No obvious radiodense r enal calculi identified. Cholecystectomy clips. Degenerative changes of the lumbar spine. IMPRESSION: As above. Further CT assessment can be considered if clinically required.
== END | disposition home or self-care (01) ==
LOC: RADXRMAIN 11:38
PROVIDERS: ATTEND Urology
DX: N20.0 Calculus of kidney (principal)
CPT/HCPCS: 74018

== ENCOUNTER → 2022-05-08 | Outpatient (CLI) | payer MEDICARE ==
--- NOTE | 2022-05-09 10:14 | MM ---
Reason for Exam: Screening (asymptomatic). Last mammogram was performed 1 year(s) and 8 month(s) ago. Patient History: Menarche at age 17. First Full-Term at age 24. Hysterectomy at age 46. Postmenopausal. Currently using Estrogen, beginning at age 57 for 2 years. Currently using Progesterone, starting at age 57. 2002, Excisional Biopsy on the Right side. 2003, Excisional Biopsy on the Left side. 04/26/2021, Benign Core Biopsy on the right side. Paternal grandmother had breast cancer. Paternal uncle had breast cancer. Risk Values: Raine 5 year model risk: 2.0%. NCI Lifetime model risk: 7.6%. Prior Study Comparison: 10/05/2020 Right Diagnostic Mammogram, [facility]. 04/26/2021 Right Diagnostic Mammogram, [facility]. 10/30/2021 Right Diagnostic Mammogram, [facility]. Tissue Density: The breast tissue is heterogeneously dense. This may lower the sensitivity of mammography. Findings: Analyzed By CAD. Surgical clip anteriorly in the left breast is redemonstrated. Occasional scattered benign-appearing round calcification bilaterally is redemonstrated. Stable small well-circumscribed mass in the central right breast anterior to middle depth. Stable small well-circumscribed masses in the posterior outer left breast. Mammotome biopsy clip in the right breast anteriorly is redemonstrated. There is no suspicious group of microcalcifications or new suspicious mass in either breast. Overall Assessment: Benign, BI-RAD 2 Management: Screening Mammogram of both breasts in 1 year. Some advise annual bilateral breast ultrasound surveillance in patients with background dense tissue. Electronically signed and approved by: Jayjay Cole M.D.
== END | disposition home or self-care (01) ==
LOC: RADMAMWWP 07:00
PROVIDERS: ATTEND Family Medicine
DX: Z12.31 Encounter for screening mammogram for malignant neoplasm of breast (principal); Z78.0 Asymptomatic menopausal state; Z80.3 Family history of malignant neoplasm of breast
CPT/HCPCS: 77063; 77067

== ENCOUNTER → 2022-06-19 | Outpatient (CLI) | payer MEDICARE ==
[2022-06-19 14:39] LABS: African American GFR (CKD) >90 (>60 ml/min/1.73 sqM); Blood Urea Nitrogen 15 mg/dL (7-17); Non-African American GFR(CKD) 89 (>60 ml/min/1.73 sqM)
--- NOTE | 2022-06-19 15:21 | CT ---
EXAMINATION TYPE: CT abdomen pelvis w con CT DLP: 592.8 mGycm, Automated exposure control for dose reduction was used. DATE OF EXAM: 06/19/2022 3:10 PM COMPARISON: CT abdomen pelvis most recent from 11/14/2020 CLINICAL INDICATION:Female, 66 years old with history of K56.50 Adhesions, G89.18 p/o pain, R10.13 ep i pain; adhesions ; pain in lt side TECHNIQUE: Axial CT of the abdomen and pelvis. Sagittal and coronal reformats were created on a [employer] workstation. Contrast used:100ml mL of Isovue 300 with IV Contrast, Oral contrast used: with Oral Contrast FINDINGS: LOWER CHEST: Unremarkable ABDOMEN LIVER: Diffusely hypoattenuating parenchyma. GALLBLADDER AND BILE DUCTS: The gallbladder is surgically absent. PANCREAS: Unremarkable. SPLEEN: Unremarkable. ADRENAL GLANDS: Unremarkable. KIDNEYS AND URETERS: No evidence of hydronephrosis or renal calculus. Renal calculi seen on prior are not definitively visualized. PELVIS BLADDER: Unremarkable REPRODUCTIVE: Unremarkable. ABDOMEN & PELVIS STOMACH AND BOWEL: Postsurgical change the gastroesophageal junction small hiatal hernia suggested. D ecompressed colon most pronounced on the left with pseudothickening of the wall. There may be minimal fat stranding changes around the left lower quadrant sigmoid:. No evidence of bowel obstruction. PERITONEUM: No evidence of pneumoperitoneum or free fluid. VASCULATURE: Mild atherosclerotic calcifications are present throughout the abdominal aorta and its b ranches. No evidence of aortic aneurysm. MUSCULOSKELETAL: No acute osseous abnormalities. Mild disc degeneration changes are present throughou t the thoracolumbar spine. LYMPH NODES: No gross evidence for lymphadenopathy. SOFT TISSUE/ABDOMINAL WALL: Unremarkable IMPRESSION: 1. Inflammatory changes around the colon sigmoid colon correlate for colitis. No additional finding w ithin the abdomen to correlate with patient's left-sided pain. 2. Postsurgical changes around the distal esophagus with suspected small hiatal hernia. 3. Hepatic steatosis.
== END | disposition home or self-care (01) ==
LOC: RADCTMAIN 12:57
PROVIDERS: ATTEND Surgery
DX: K76.0 Fatty (change of) liver, not elsewhere classified (principal); G89.18 Other acute postprocedural pain; R10.13 Epigastric pain; Z87.19 Personal history of other diseases of the digestive system
CPT/HCPCS: 82565; 84520; 74177; 36415; Q9967

== ENCOUNTER → 2022-08-28 | Outpatient (CLI) | payer MEDICARE ==
--- NOTE | 2022-08-28 13:23 | MR ---
EXAMINATION TYPE: MR brain wo/w con DATE OF EXAM: 08/28/2022 COMPARISON: MR brain 05/23/2021, 09/07/2020. HISTORY: Meningioma TECHNIQUE: Multiplanar, multisequence images of the brain and brainstem is performed without and with IV contras t, utilizing 7 mL intravenous Gadavist . FINDINGS: Diffusion weighted images demonstrate no evidence of a recent infarct or other diffusion ab normality. There is no extra-axial fluid collection or significant white matter signal abnormality. The ventricular system and cisternal spaces are normal in size and appearance. The brain volume is age appropriate. Midline structures demonstrate normal morphology. The craniocervical junction appears within normal limits. Post contrast images demonstrate enhancement of dural based lesion along the medial aspect o f the left middle cranial fossa measuring 13 x 10 mm which is stable from prior examination when jeffery uring with similar technique. This demonstrates intermediate T2 signal. Hypoplastic A1 segment right anterior cerebral artery The dural venous sinuses appear patent. The visualized globes are intact. Mi ld mucosal thickening of the left maxillary sinus and ethmoid sinuses. IMPRESSION: Stable 13 mm meningioma along the anteromedial left middle cranial fossa.
== END | disposition home or self-care (01) ==
LOC: RADMRIMAIN 11:34
PROVIDERS: ATTEND Neurological Surgery
DX: G93.9 Disorder of brain, unspecified (principal)
CPT/HCPCS: 70553; A9585

== ENCOUNTER → 2023-10-15 | Outpatient (CLI) | payer MEDICARE ==
--- NOTE | 2023-10-15 11:36 | XR ---
EXAMINATION TYPE: XR KUB DATE OF EXAM: 10/15/2023 Comparison: 04/09/2022 Clinical History: 67-year-old female N20.0 Calculus Kidney Findings: A couple borderline distended small bowel loops left mid abdomen measuring up to 2.9 cm probably wright sient. Surgical clips in the upper aspect of the abdomen on both sides. Bowel content moderately obsc ures the renal shadows limiting the evaluation. Surgical material near the GE junction. Impression: Bowel content largely obscures the renal shadows limiting the exam. Surgical material within the uppe r and mid abdomen.
== END | disposition home or self-care (01) ==
LOC: RADXRMAIN 10:05
PROVIDERS: ATTEND Urology
DX: N20.0 Calculus of kidney (principal)
CPT/HCPCS: 74018

== ENCOUNTER → 2023-10-24 | Outpatient (CLI) | payer MEDICARE ==
--- NOTE | 2023-10-24 11:56 | CT ---
EXAMINATION: CT ABDOMEN AND PELVIS WITHOUT CONTRAST DATE OF EXAMINATION: 10/24/2023. COMPARISON: None available. INDICATION: Bilateral flank pain and back pain. PROCEDURE: Axial CT of the abdomen and pelvis was performed without contrast and sagittal and coron al reformatted images were performed. CT dose lowering techniques were used, to include: automated ex posure control, adjustment for patient size, and/or use of iterative reconstruction. FINDINGS: LOWER CHEST : The visualized lung bases are clear. There are no pleural or pericardial effusions. ABDOMEN: Liver and Biliary system: Normal. Adrenal glands: Normal. Kidneys and ureters: There is a 2 mm nonobstructing stone in the lower pole the left kidney. The kidn eys and ureters otherwise appear unremarkable. Spleen: Normal. Pancreas: Normal. Gallbladder: Surgically absent. Lymph nodes, Peritoneum and mesentery: There is no mesenteric or retroperitoneal lymphadenopathy. Gastrointestinal tract: There are no dilated loops of bowel or free intraperitoneal air. The appe ndix is normal. . There appears to be prior surgical changes in the region the gastroesophageal junct ion which may relate to prior fundoplication. There is a small residual hiatal hernia. Aorta/IVC: There is mild vascular calcification throughout the abdominal aorta without evidence of aneurysmal dilation IVC normal. Abdominal wall: Normal. PELVIS: Fluid: There is no free fluid in the pelvis. Lymph Nodes: There is no pelvic or inguinal lymphadenopathy.. Urinary bladder: Normal. BONES: There are no osseous destructive lesions.. ADDITIONAL SIGNIFICANT FINDINGS: None. IMPRESSION: 1. Nonobstructing left renal stone. 2. No bowel obstruction or appendicitis. 3. No acute findings.
== END | disposition home or self-care (01) ==
LOC: RADCTMAIN 11:26
PROVIDERS: ATTEND Urology
DX: N20.0 Calculus of kidney (principal); Z90.49 Acquired absence of other specified parts of digestive tract
CPT/HCPCS: 74176

== ENCOUNTER → 2024-08-04 | Outpatient (CLI) | payer MEDICARE ==
--- NOTE | 2024-08-05 11:54 | MM ---
Reason for Exam: Screening (asymptomatic). Last mammogram was performed 1 year(s) and 1 month(s) ago. Patient History: Menarche at age 17. First Full-Term at age 24. Hysterectomy at age 46. Postmenopausal. Patient has history of breast feeding. Currently using Estrogen, beginning at age 57 for 2 years. Currently using Progesterone, starting at age 57. 2002, Excisional Biopsy on the Right side. 2003, Excisional Biopsy on the Left side. 04/26/2021, Benign Core Biopsy on the right side. Paternal grandmother had breast cancer. Paternal uncle had breast cancer. Risk Values: Raine 5 year model risk: 2.1%. NCI Lifetime model risk: 7.1%. Prior Study Comparison: 10/30/2021 Right Diagnostic Mammogram, [facility]. 05/08/2022 Bilateral MG 3D screening mammo w/cad, [facility]. 07/29/2023 Bilateral MG 3D screening mammo w/cad, [facility]. Tissue Density: The breasts are heterogeneously dense, which may obscure small masses. Findings: Analyzed By CAD. Right breast biopsy clip. Left breast surgical clip/biopsy clip. Right breast: There is no suspicious group of microcalcifications or new suspicious mass. Left breast: There is no suspicious group of microcalcifications or new suspicious mass. Overall Assessment: Negative, BI-RAD 1 Management: Screening Mammogram of both breasts in [address] [facility] will attempt to contact patient to return for supplemental views and ultrasound if indicated. Patient should continue monthly self-breast exams. A clinical breast exam by your physician is recommended on an annual basis. This exam should not preclude additional follow-up of suspicious palpable abnormalities. Note on Raine scores and lifetime risk: 1. A Raine score greater than 3% is considered moderate risk. If this is the case, consider specialist referral to assess eligibility for a risk reducing agent. 2. If overall lifetime risk for the development of breast cancer is 20% or higher, the patient may qualify for future screening with alternating mammogram and breast MRI. [facility], , 08/05/2024 11:36 AM. Electronically signed and approved by: Aric Andrews DO
== END | disposition home or self-care (01) ==
LOC: RADMAMWWP 12:30
PROVIDERS: ATTEND Family Medicine
DX: Z12.31 Encounter for screening mammogram for malignant neoplasm of breast
CPT/HCPCS: 77063; 77067

== ENCOUNTER → 2024-08-25 | Outpatient (CLI) | payer MEDICARE ==
--- NOTE | 2024-08-25 13:04 | MR ---
EXAMINATION TYPE: MR brain wo/w con DATE OF EXAM: 08/25/2024 12:08 PM COMPARISON: 08/28/2022 HISTORY: F/U Benign tumor of meninges CONTRAST: Patient received 6 mL intravenous Gadavist gadolinium contrast. Multiplanar and multispin-echo imaging of the brain was performed . Pre and post contrast enhanced i mages are obtained. The ventricles, basal cisterns and sulci overlying the cerebral convexities are minimally enlarged. There is evidence of mild periventricular white matter ischemic demyelination. Remote deep white matter insults are also noted. No acute edema is seen on diffusion weighted imaging. There is no evidence for midline shift or mass effect. Extra-axial homogeneously enhancing mass arising from the left side anterior middle cranial fossa has enlarged slightly measures 14 mm x 12 mm versus 13 mm x 10 mm. This likely reflects meningioma. No a dditional masses are evident. The paranasal sinuses and mastoid air cells are well-aerated. IMPRESSION: 1. Slight interval enlargement of left-sided middle cranial fossa meningioma. 2. Age-related atrophic and chronic small vessel ischemic change. No acute intracranial process at this time. [facility], , 08/25/2024 1:02 PM
== END | disposition home or self-care (01) ==
LOC: RADMRIMAIN 11:21
PROVIDERS: ATTEND Neurological Surgery
DX: D32.9 Benign neoplasm of meninges, unspecified (principal); G31.1 Senile degeneration of brain, not elsewhere classified; I67.82 Cerebral ischemia
CPT/HCPCS: 70553; A9585

== ENCOUNTER → 2024-09-08 | Outpatient (CLI) | payer MEDICARE ==
--- NOTE | 2024-09-08 17:00 | XR ---
EXAMINATION TYPE: XR KUB DATE OF EXAM: 09/08/2024 COMPARISON: 10/15/2023 INDICATION: Renal calculus TECHNIQUE: Single view abdomen supine view FINDINGS: Nonspecific bowel gas is present. Air is present within small bowel loops within the midabdomen. Air appears within the colon. Psoas margins are normal. No organomegaly is present. IMPRESSION: 1. Nonspecific abdomen [facility], Workstation: [facility], 09/08/2024 4:57 PM
== END | disposition home or self-care (01) ==
LOC: RADXRMAIN 16:16
PROVIDERS: ATTEND Urology
DX: N20.0 Calculus of kidney (principal)
CPT/HCPCS: 74018

== ENCOUNTER 2025-01-22 14:19 | Emergency (ER) | payer MEDICARE ==
[2025-01-22 14:29] VITALS: TEMP 97.8
[2025-01-22 14:56] LABS: Appearance,Urine Clear (Clear); Bilirubin,Urine Negative (Negative); Blood,Urine Negative (Negative); Color,Urine Colorless; Glucose,Urine (UA) Negative (Negative); Ketones,Urine Negative (Negative); Leukocyte Esterase,Urine Negative (Negative); Nitrite,Urine Negative (Negative); PH, Urine 6.5 (5.0-8.0); Protein,Urine Negative (Negative); Specific Gravity,Urine 1.004 (1.001-1.035); Urobilinogen,Urine <2.0 mg/dL (<2.0)
--- NOTE | 2025-01-22 14:56 | ED ---
General Adult HPI - General Source: patient, RN notes reviewed Mode of arrival: ambulatory Limitations: no limitations <Lian Ghotra - Last Filed: 01/22/25 14:54> - General Source: patient, RN notes reviewed Mode of arrival: ambulatory Limitations: no limitations <Any Chairez - Last Filed: 01/23/25 06:46> - General Chief complaint: Abdominal Pain Stated complaint: Abd pain Time Seen by Provider: 01/22/25 14:31 - History of Present Illness Initial comments: Quick [id number] female presenting to the emergency department for complaint of left flank pain with radiation to the left front of the abdomen that has been worsening over the past 3 days. Patient states that she has known bilateral kidney stones. Patient was evaluated yesterday urgent care where her urine was concerning for infection was started on Macrobid. Patient denies dysuria, hematuria, urinary frequency or urgency. Endorses nausea with no reported vomiting. Follows with Dr. Pinedo (Lian Ghotra) 69-year-old female presented to ER for evaluation of left flank pain. Patient has a known history of kidney stones and follows up with urologist, Dr. Pinedo. She states for the past 3 days she has been having a progressively worsening left flank pain with radiation to her left lower quadrant. She states pain feel similar to prior kidney stones. Patient was seen by urgent care yesterday and diagnosed with a UTI. She was started on Bactrim and Flomax. Patient reports she feels mildly nauseous but denies any vomiting, diarrhea or constipation. Patient does reports she typically has loose bowel movements but this is chronic. She took 2 Aleve this morning for pain control without relief. She denies any hematuria, increasing frequency, dysuria, fevers, chills, chest pain, shortness of breath, peripheral edema or other complaints at this time. (Any Chairez) - Related Data Home Medications Medication Instructions Recorded Confirmed Progesterone, Micronized 400 mg PO HS 06/30/20 02/07/22 [Progesterone] Thyroid,Pork [[place] Thyroid] 60 mg PO DAILY 06/30/20 02/07/22 Melatonin [Melatonin Tr] 10 mg PO HS 08/09/20 02/07/22 Magnesium Oxide 800 mg PO HS 11/14/20 02/07/22 guaiFENesin [Mucinex] 1,200 mg PO BID PRN 01/04/21 02/07/22 Fluticasone Nasal [place] [Flonase 1 spray EA NOSTRIL DAILY 02/01/22 02/07/22 Nasal [place]] Previous Rx's Medication Instructions Recorded Acetaminophen Tab [Tylenol] 650 mg PO Q6H #30 tab 02/07/22 Docusate [Colace] 100 mg PO BID #20 capsule 02/07/22 Ibuprofen [Motrin] 600 mg PO Q6HR PRN #40 tab 02/07/22 oxyCODONE HCL [OxyIR] 5 mg PO Q6H PRN 3 Days #10 tab 02/07/22 Allergies Allergy/AdvReac Type Severity Reaction Status Date / Time cephalexin [From Keflex] Allergy Itching Verified 02/07/22 07:12 levofloxacin [From Levaquin] Allergy SEVERE Verified 02/07/22 07:12 MUSCLE PAIN Penicillins Allergy Itching Verified 02/07/22 07:12 codeine AdvReac GI Upset Verified 02/07/22 07:12 [From Tylenol-Codeine #3] Review of Systems ROS Other: All systems not noted in ROS Statement are negative. <Lian Ghotra - Last Filed: 01/22/25 14:54> ROS Other: All systems not noted in ROS Statement are negative. <Any Chairez - Last Filed: 01/23/25 06:46> ROS Statement: Those systems with pertinent positive or pertinent negative responses have been documented in the HPI. Past Medical History Past Medical History: GERD/Reflux, Osteoarthritis (OA), Thyroid Disorder Additional Past Medical History / Comment(s): Migraines, LEFT MENINGIOMA (TEMPORAL AREA )-monitoring, KIDNEY STONE History of Any Multi-Drug Resistant Organisms: None Reported Past Surgical History: Breast Surgery, Section, Hernia Repair, Hysterectomy, Orthopedic Surgery, Tonsillectomy Additional Past Surgical History / Comment(s): Bilateral breast benign biopsies, umbilical repair x2, total L knee x2, R thumb surgeries for neuromas, bladder mckeon spension X2, panniculectomy, jag fundoplication then another repair done, sinus surgery, LITHROTRIPSY, Past Anesthesia/Blood Transfusion Reactions: Previous Problems w/ Anesthesia Additional Past Anesthesia/Blood Transfusion Reaction / Comment(s): HEART RATE WENT UP WITH KIDNEY STONE SURGERY Past Psychological History: Anxiety, Depression Smoking Status: Former smoker Past Alcohol Use History: None Reported Past Drug Use History: None Reported - Past Family History Father Family Medical History: Congestive Heart Failure (CHF) Mother Family Medical History: Congestive Heart Failure (CHF), Diabetes Mellitus, Hypertension Additional Family Medical History / Comment(s): . <Lian Ghotra - Last Filed: 01/22/25 14:54> General Exam Limitations: no limitations <Lian Ghotra - Last Filed: 01/22/25 14:54> Limitations: no limitations General appearance: alert, in no apparent distress Respiratory exam: Present: normal lung sounds bilaterally. Absent: respiratory distress, wheezes, rales, rhonchi, stridor Cardiovascular Exam: Present: regular rate, normal rhythm, normal heart sounds. Absent: systolic murmur, diastolic murmur, rubs, gallop, clicks GI/Abdominal exam: Present: soft, normal bowel sounds. Absent: distended, tenderness, guarding, rebound, rigid Back exam: Present: normal inspection, CVA tenderness (L) Neurological exam: Present: alert, oriented X3, CN II-XII intact Skin exam: Present: warm, dry, intact, normal color. Absent: rash <Any Chairez - Last Filed: 01/23/25 06:46> - General Exam Comments Initial Comments: Visual Physical Exam Vital signs reviewed General: Well-appearing, nontoxic, no acute distress. Head: Normocephalic, atraumatic Eyes: PERRLA, EOMI ENT: Airway patent Chest: Nonlabored breathing Skin: No visual rash, normal skin tone Neuro: Alert and oriented 3 Musculoskeletal: No gross abnormalities (Lian Ghotra) Course Vital Signs 01/22/25 01/22/25 14:27 17:53 Temperature 97.8 F Pulse Rate 101 H 87 Respiratory 18 17 Rate Blood Pressure 178/89 165/86 O2 Sat by Pulse 98 99 Oximetry Medical Decision Making <Lian Ghotra - Last Filed: 01/22/25 14:54> - Lab Data Result diagrams: 01/22/25 15:39 01/22/25 15:39 - Radiology Data Radiology results: report reviewed, image reviewed <Any Chairez - Last Filed: 01/23/25 06:46> - Medical Decision Making I completed the quick note portion of this chart signed Lian Ghotra PA-C (Lian Ghotra) Was pt. sent in by a medical professional or institution (JOHN Stoll, OUTREACH REPRESENTATIVE, urgent care, hospital, or correction...) When possible be specific @ -No Did you speak to anyone other than the patient for history (EMS, parent, family, police, friend...)? What history was obtained from this source @ -No Did you review nursing and triage notes (agree or disagree)? Why? @ -I reviewed and agree with nursing and triage notes Were old charts reviewed (outside hosp., previous admission, EMS record, old EK G, old radiological studies, urgent care reports/EKG's, correction records)? Report findings @ -No old charts were reviewed Differential Diagnosis (chest pain, altered mental status, abdominal pain women, abdominal pain men, vaginal bleeding, weakness, fever, dyspnea, syncope, headache, dizziness, GI bleed, back pain, seizure, CVA, palpatations, mental health, musculoskeletal)? @Differential Abdominal Pain Women: Appendicitis, Cholecystitis, diverticulosis, ischemic bowel, pancreatitis, hepatitis, UTI, gastroenteritis, AAA, incarcerated hernia, bowel obstruction, constipation, inflammatory bowel, hepatitis, peptic ulcer disease, splenic infarction, perforated viscus, vulvitis, ovarian torsion, PID, kidney stone, placenta abruption, this is not meant to be an all-inclusive list EKG interpreted by me (3pts min.). @ -As above X-rays interpreted by me (1pt min.). @ -None done CT interpreted by me (1pt min.). @ -CT abdomen pelvis showing no evidence of obstructive uropathy. Bilateral nonobstructing renal calculi noted. Postsurgical changes of GE junction no evidence of bowel obstruction. U/S interpreted by me (1pt. min.). @ -None done What testing was considered but not performed or refused? (CT, X-rays, U/S, labs)? Why? @ -None What meds were considered but not given or refused? Why? @ -None Did you discuss the management of the patient with other professionals (tomi muller i.e. JOHN Stoll, OUTREACH REPRESENTATIVE, lab, RT, psych nurse, rn social work, union steward, teacher, operations officer afloat, piano case and bench assembler)? Give summary @ -No Was smoking cessation discussed for >3mins.? @ -No Was critical care preformed (if so, how long)? @ -No Were there social determinants of health that impacted care today? How? (Homelessness, low income, unemployed, alcoholism, drug addiction, transportation, low edu. Level, literacy, decrease access to med. care, assisted, rehab)? @ -No Was there de-escalation of care discussed even if they declined (Discuss DNR or withdrawal of care, Hospice)? DNR status @ -No What co-morbidities impacted this encounter? (DM, HTN, Smoking, COPD, CAD, Cancer, CVA, ARF, Chemo, Hep., AIDS, mental health diagnosis, sleep apnea, morbid obesity)? @ -Hx kidney stones Was patient admitted / discharged? Hospital course, mention meds given and route, prescriptions, significant lab abnormalities, going to OR and other pertinent info. @ -Discharge. 69-year-old female presented the ER for evaluation of left flank pain x 3 days. Vitals with acceptable limits. Patient in no signs of acute distress nontoxic-appearing. Exam remarkable for left CVA tenderness. No focal abdominal tenderness. No overlying skin changes. Laboratory studies obtained unremarkable. Urinalysis unremarkable with no evidence of infection or hematuria. CT abdomen pelvis showing no obstructive uropathy. Patient given symptomatic control in the ER with IV fluids, Zofran, Toradol and Dilaudid, with improvement. Patient is stable for discharge with close outpatient follow-up to PCP. Strict return parameters discussed. Patient discharged in stable condition. Patient verbally expressed understanding agree with care plan. Case discussed with ED attending, Dr. Obando. Undiagnosed new problem with uncertain prognosis? @ -No Drug Therapy requiring intensive monitoring for toxicity (Heparin, Nitro, Insulin, Cardizem)? @ -No Were any procedures done? @ -No Diagnosis/symptom? @ -Left flank pain Acute, or Chronic, or Acute on Chronic? @ -Acute Uncomplicated (without systemic symptoms) or Complicated (systemic symptoms)? @ -Uncomplicated Side effects of treatment? @ -No Exacerbation, Progression, or Severe Exacerbation? @ -No Poses a threat to life or bodily function? How? (Chest pain, [place], VA, pneumonia, PE, COPD, DKA, ARF, appy, cholecystitis, CVA, Diverticulitis, Homicidal, Mckeon icidal, threat to staff... and all critical care pts) @ -No (Any Chairez) - Lab Data Lab Results 01/22/25 01/22/25 01/22/25 Range/Units 14:33 15:39 15:39 WBC 8.8 (3.8-10.6) k/uL RBC 4.72 (3.80-5.40) m/uL Hgb 15.2 (11.4-16.0) gm/dL Hct 44.5 (34.0-46.0) % MCV 94.3 (80.0-100.0) fL MCH 32.2 (25.0-35.0) pg MCHC 34.2 (31.0-37.0) g/dL RDW 11.5 (11.5-15.5) % Plt Count 285 (150-450) k/uL MPV 7.2 Neutrophils % 63 % Lymphocytes % 27 % Monocytes % 5 % Eosinophils % 4 % Basophils % 1 % Neutrophils # 5.5 (1.3-7.7) k/uL Lymphocytes # 2.4 (1.0-4.8) k/uL Monocytes # 0.4 (0-1.0) k/uL Eosinophils # 0.3 (0-0.7) k/uL Basophils # 0.1 (0-0.2) k/uL Sodium 137 (137-145) mmol/L Potassium 4.2 (3.5-5.1) mmol/L Chloride 104 (98-107) mmol/L Carbon Dioxide 26 (22-30) mmol/L Anion Gap 7 mmol/L BUN 25 H (7-17) mg/dL Creatinine 0.59 (0.52-1.04) mg/dL Est GFR (CKD-EPI)AfAm >90 (>60 ml/min/1.73 sqM) Est GFR (CKD-EPI)NonAf >90 (>60 ml/min/1.73 sqM) Glucose 87 (74-99) mg/dL Calcium 10.0 (8.4-10.2) mg/dL Total Bilirubin 0.5 (0.2-1.3) mg/dL AST 20 (14-36) U/L ALT 16 (4-34) U/L Alkaline Phosphatase 41 (38-126) U/L Total Protein 7.2 (6.3-8.2) g/dL Albumin 4.2 (3.5-5.0) g/dL Amylase (30-110) U/L Lipase (23-300) U/L Urine Color Colorless Urine Appearance Clear (Clear) Urine pH 6.5 (5.0-8.0) Ur Specific [place] 1.004 (1.001-1.035) Urine Protein Negative (Negative) Urine Glucose (UA) Negative (Negative) Urine Ketones Negative (Negative) Urine Blood Negative (Negative) Urine Nitrite Negative (Negative) Urine Bilirubin Negative (Negative) Urine Urobilinogen <2.0 (<2.0) mg/dL Ur Leukocyte Esterase Negative (Negative) 01/22/25 Range/Units 15:39 WBC (3.8-10.6) k/uL RBC (3.80-5.40) m/uL Hgb (11.4-16.0) gm/dL Hct (34.0-46.0) % MCV (80.0-100.0) fL MCH (25.0-35.0) pg MCHC (31.0-37.0) g/dL RDW (11.5-15.5) % Plt Count (150-450) k/uL MPV Neutrophils % % Lymphocytes % % Monocytes % % Eosinophils % % Basophils % % Neutrophils # (1.3-7.7) k/uL Lymphocytes # (1.0-4.8) k/uL Monocytes # (0-1.0) k/uL Eosinophils # (0-0.7) k/uL Basophils # (0-0.2) k/uL Sodium (137-145) mmol/L Potassium (3.5-5.1) mmol/L Chloride (98-107) mmol/L Carbon Dioxide (22-30) mmol/L Anion Gap mmol/L BUN (7-17) mg/dL Creatinine (0.52-1.04) mg/dL Est GFR (CKD-EPI)AfAm (>60 ml/min/1.73 sqM) Est GFR (CKD-EPI)NonAf (>60 ml/min/1.73 sqM) Glucose (74-99) mg/dL Calcium (8.4-10.2) mg/dL Total Bilirubin (0.2-1.3) mg/dL AST (14-36) U/L ALT (4-34) U/L Alkaline Phosphatase (38-126) U/L Total Protein (6.3-8.2) g/dL Albumin (3.5-5.0) g/dL Amylase 114 H (30-110) U/L Lipase 268 (23-300) U/L Urine Color Urine Appearance (Clear) Urine pH (5.0-8.0) Ur Specific [place] (1.001-1.035) Urine Protein (Negative) Urine Glucose (UA) (Negative) Urine Ketones (Negative) Urine Blood (Negative) Urine Nitrite (Negative) Urine Bilirubin (Negative) Urine Urobilinogen (<2.0) mg/dL Ur Leukocyte Esterase (Negative) Disposition <Lian Ghotra - Last Filed: 01/22/25 14:54> Is patient prescribed a controlled substance at d/c from ED?: No Time of Disposition: 16:35 <Any Chairez - Last Filed: 01/23/25 06:46> Clinical Impression: Left flank pain Disposition: HOME SELF-CARE Condition: Stable Additional Instructions: You may take [id number] ibuprofen and Tylenol for pain control outpatient. Follow-up closely with PCP and urology. Return to the ER for any new or worsening concerns. Referrals: Toni Brennan DO [Primary Care Provider] - 1-2 days Lamonte Pinedo MD [STAFF PHYSICIAN] - 1-2 days
--- NOTE | 2025-01-22 15:32 | CT ---
EXAMINATION TYPE: CT abdomen pelvis wo con CT DLP: 395 mGycm, Automated exposure control for dose reduction was used. DATE OF EXAM: 01/22/2025 3:19 PM COMPARISON: CT abdomen pelvis 10/24/2023, 06/19/2022. CLINICAL INDICATION:Female, 69 years old with history of flank pain (bilat. worse on left), hx stones ; Flank pain (bilat. worse on left), hx stones. TECHNIQUE: Standard CT of the abdomen and pelvis without IV or oral contrast. Lack of IV or oral co ntrast limits evaluation of solid and hollow organ viscera. Coronal and sagittal reformats were perfo rmed. FINDINGS: LOWER CHEST: Unremarkable noncontrast appearance. ABDOMEN LIVER: Unremarkable noncontrast appearance. GALLBLADDER AND BILE DUCTS: The gallbladder is surgically absent. No biliary ductal dilatation. PANCREAS: Unremarkable noncontrast appearance. SPLEEN: Unremarkable noncontrast appearance. ADRENAL GLANDS: Unremarkable noncontrast appearance.. KIDNEYS AND URETERS: No evidence of hydronephrosis. No perinephric fat stranding. Couple of nonobstru cting renal calculi within each kidney with largest within the inferior pole of the right kidney jeffery uring 5 mm and largest within the inferior pole left kidney measuring 3 mm. No ureteral calculus. PELVIS BLADDER: Underdistended but grossly unremarkable. REPRODUCTIVE: The uterus is surgically absent. ABDOMEN & PELVIS STOMACH AND BOWEL: Postsurgical changes at the GE junction from hernia repair.No colonic bowel wall t hickening. No evidence of bowel obstruction. PERITONEUM: No evidence of pneumoperitoneum or free fluid. VASCULATURE: Mild atherosclerotic calcifications are present throughout the abdominal aorta and its b ranches. No evidence of aortic aneurysm. Couple of stable punctate pelvic phleboliths. MUSCULOSKELETAL: No acute osseous abnormalities. Degenerative disc disease L5-S1. Grade 1 anterolisth esis of L4 on L5 without pars defects. LYMPH NODES: No gross evidence for lymphadenopathy. SOFT TISSUE/ABDOMINAL WALL: Unremarkable IMPRESSION: No evidence for obstructive uropathy. Bilateral nonobstructing renal calculi. [facility], , 01/22/2025 3:29 PM
[2025-01-22 15:47] LABS: Basophils # (A) 0.1 k/uL (0-0.2); Basophils % (A) 1 %; Eosinophils # (A) 0.3 k/uL (0-0.7); Eosinophils % (A) 4 %; HCT 44.5 % (34.0-46.0); HGB 15.2 gm/dL (11.4-16.0); Lymphocytes # (A) 2.4 k/uL (1.0-4.8); Lymphocytes % (A) 27 %; MCH 32.2 pg (25.0-35.0); MCHC 34.2 g/dL (31.0-37.0); MCV 94.3 fL (80.0-100.0); Mean Platelet Volume 7.2; Monocytes # (A) 0.4 k/uL (0-1.0); Monocytes % (A) 5 %; Neutrophils # (A) 5.5 k/uL (1.3-7.7); Neutrophils % (A) 63 %; Platelet Count 285 k/uL (150-450); RBC 4.72 m/uL (3.80-5.40); RDW 11.5 % (11.5-15.5); WBC 8.8 k/uL (3.8-10.6)
[2025-01-22 15:57] LABS: ALT 16 U/L (4-34); AST 20 U/L (14-36); African American GFR (CKD) >90 (>60 ml/min/1.73 sqM); Albumin 4.2 g/dL (3.5-5.0); Alkaline Phosphatase 41 U/L (38-126); Anion Gap 7 mmol/L; Blood Urea Nitrogen 25 mg/dL (7-17); Carbon Dioxide 26 mmol/L (22-30); Chloride 104 mmol/L (98-107); Glucose 87 mg/dL (74-99); Non-African American GFR(CKD) >90 (>60 ml/min/1.73 sqM); Potassium 4.2 mmol/L (3.5-5.1); Sodium 137 mmol/L (137-145); Total Bilirubin 0.5 mg/dL (0.2-1.3); Total Protein 7.2 g/dL (6.3-8.2)
[2025-01-22 16:11] LABS: Amylase 114 U/L (30-110); Lipase 268 U/L (23-300)
[2025-01-22] MEDS: SODIUM CHLORIDE 0.9% 1,000 ML IV ONE (16:23)
[2025-01-22] MEDS: ONDANSETRON 4 MG/2 ML VIAL IVP STA (16:24)
[2025-01-22] MEDS: KETOROLAC 15 MG/ML 1 ML VIAL IVP STA (16:25)
[2025-01-22] MEDS: HYDROmorphone 0.5 MG/0.5 ML SYRINGE IVP STA (16:27)
[2025-01-22 17:55] VITALS: BP 165/86; PULSE 87; RESP 17
== END 2025-01-22 18:03 | disposition home or self-care (01) ==
LOC: EC 14:19
DX: N20.0 Calculus of kidney (principal); Z88.0 Allergy status to penicillin; Z88.1 Allergy status to other antibiotic agents; Z88.5 Allergy status to narcotic agent; Z88.6 Allergy status to analgesic agent; Z87.891 Personal history of nicotine dependence
CPT/HCPCS: 36415; 80053; 82150; 83690; 85025; 81003; 74176; 99284; 96374; 96375 ×2; 96361; J2405; J1885; J1171

== ENCOUNTER → 2025-01-27 | Outpatient (CLI) | payer MEDICARE ==
[2025-01-28 01:47] LABS: Basophils # (A) 0.08 X 10*3/uL (0.00-0.10); Eosinophils % (A) 3.6 %; HGB 15.2 g/dL (12.0-15.0); Lymphocytes # (A) 2.45 X 10*3/uL (0.90-5.00); Lymphocytes % (A) 29.3 %; MCH 32.4 pg (27.0-32.0); MCHC 33.8 g/dL (32.0-37.0); MCV 95.9 FL (80.0-97.0); Mean Platelet Volume 10.3 FL (9.5-12.2); Monocytes # (A) 0.56 X 10*3/uL (0.20-1.00); Monocytes % (A) 6.7 %; NRBC Per 100 WBC 0 X 10*3/uL (0.00-0.01); Neutrophils # (A) 4.94 X 10*3/uL (1.80-7.70); Neutrophils % (A) 59.2 %; Platelet Count 278 X 10*3/uL (140-440); RBC 4.69 X 10*6/uL (4.10-5.20); RDW 11.9 % (11.5-14.5); WBC 8.35 X 10*3/uL (4.50-10.00)
[2025-01-28 02:00] LABS: Appearance,Urine Clear (Clear); Bilirubin,Urine Negative (Negative); Blood,Urine Negative (Negative); Color,Urine Yellow (Yellow); Ketones,Urine Negative (Negative); Nitrite,Urine Negative (Negative); PH, Urine 6.5; Specific Gravity,Urine 1.012 (1.001-1.030); Urobilinogen,Urine 0.2 E.U./DL
[2025-01-28 02:15] LABS: BUN/Creat Ratio 40.83 Ratio (12.00-20.00); Bacteria,Urine None Seen (None Seen); Blood Urea Nitrogen 24.5 mg/dL (9.0-27.0); Carbon Dioxide 26.6 mmol/L (21.6-31.8); Chloride 104 mmol/L (96-109); Glucose 80 mg/dL (70-110); Potassium 4.1 mmol/L (3.5-5.5); Sodium 140 mmol/L (135-145)
== END | disposition home or self-care (01) ==
LOC: LABPAT 15:32
PROVIDERS: ATTEND Urology
DX: Z01.812 Encounter for preprocedural laboratory examination (principal); N20.0 Calculus of kidney
CPT/HCPCS: 80048; 81001; 85025; 87086

== ENCOUNTER 2025-02-09 10:01 | Day surgery (SDC) | payer MEDICARE ==
[2025-02-05 14:02] VITALS: BMI 24.7
--- NOTE | 2025-02-09 10:21 | P.HPIHPCON ---
History of Present Illness H&P Date: 02/09/25 Chief Complaint: Bilateral renal stones This is a 69-year-old female with history of bilateral kidney stones, also has history of recurrent kidney stones. She has been having symptomatic bilateral flank pain. CT showed evidence of a 5 mm right lower pole stone, and two 3 mm left-sided renal stones. Discussed with her her stone are nonobstructive but they could be contributing to her pain. At this point she wants to proceed with bilateral ureteroscopy with holmium laser. She is aware of the risk which include but not limited to bleeding, infection, injury to the ureter. Discussed potential persistent pain even with stone removal Consent for Procedure: I have explained the operation/procedure to the patient, including the risks, benefits, side effects, alternative therapies (including not receiving the proposed treatment or service), the likelihood of the patient achieving his/her goals, and potential recuperation problems for the procedure/sedation/analgesia, as well as any blood products, if indicated. I also explained to the patient the risks, benefits and side effects of the alternatives, as well as the risks related to not receiving the proposed procedure, care, treatment, or services. Past Medical History Past Medical History: GERD/Reflux, Osteoarthritis (OA), Thyroid Disorder Additional Past Medical History / Comment(s): Migraines, LEFT Meningioma (TEMPORAL AREA )-monitoring, KIDNEY STONE,white coat syndrome History of Any Multi-Drug Resistant Organisms: None Reported Past Surgical History: Breast Surgery, Section, Hernia Repair, Hysterectomy, Orthopedic Surgery, Tonsillectomy Additional Past Surgical History / Comment(s): Bilateral breast benign biopsies, umbilical repair x2, total L knee x 3, R thumb surgeries for neuromas, bladder suspension X2, panniculectomy, jag fundoplication then another repair done, sinus surgery, LITHROTRIPSY Past Anesthesia/Blood Transfusion Reactions: Previous Problems w/ Anesthesia Additional Past Anesthesia/Blood Transfusion Reaction / Comment(s): HEART RATE WENT UP WITH KIDNEY STONE SURGERY. no hx blood transfusion Smoking Status: Former smoker - Past Family History Father Family Medical History: Congestive Heart Failure (CHF) Additional Family Medical History / Comment(s): Father at the age of 80yrs. Mother Family Medical History: Congestive Heart Failure (CHF), Diabetes Mellitus, Hypertension Additional Family Medical History / Comment(s): . Medications and Allergies Home Medications Medication Instructions Recorded Confirmed Type Progesterone, Micronized 400 mg PO HS 06/30/20 02/05/25 History [Progesterone] Bioti Female Hormone Replaceme 1 tab PO DAILY 02/05/25 02/05/25 History Ketorolac [Toradol] 10 mg PO Q6HR PRN 02/05/25 02/05/25 History Magnesium Oxide [Mag-Ox] 400 mg PO DAILY 02/05/25 02/05/25 History Pantoprazole [Protonix] 40 mg PO QAM 02/05/25 02/05/25 History Thyroid,Pork [[place] Thyroid] 60 mg PO QAM 02/05/25 02/05/25 History Allergies Allergy/AdvReac Type Severity Reaction Status Date / Time cephalexin [From Keflex] Allergy Itching Verified 02/05/25 12:24 levofloxacin [From Levaquin] Allergy SEVERE Verified 02/05/25 12:24 MUSCLE PAIN Penicillins Allergy Itching Verified 02/05/25 12:24 Surgical - Exam - General no distress, moderate pain - Eyes normal ocular movement, no pale - ENT normal nares, normal mucosa - Respiratory normal expansion, normal respiratory effort - Abdomen Abdomen: soft, non tender Assessment and Plan Assessment: OR for bilateral ureteroscopy, lithotripsy, stone basketing and stent insertion
[2025-02-09] MEDS ORDERED: HYDROmorphone 0.5 MG/0.5 ML SYRINGE IVP PRN (10:26)
--- NOTE | 2025-02-09 10:33 | XR ---
EXAMINATION TYPE: XR KUB DATE OF EXAM: 02/09/2025 10:18 AM COMPARISON: 09/08/2024 CLINICAL INDICATION: Female, 69 years old with history of N20.0 renal stone, TECHNIQUE: XR KUB view(s) obtained. FINDINGS: Nonspecific bowel gas is present in small bowel loops and colon containing air. No dilated loops of b owel are evident. No mass effect is evident. Psoas margins are normal. No organomegaly is present. There is likely a 0.3 cm inferior pole right renal stone present. IMPRESSION: 1. Nonspecific bowel gas pattern. 2. Suspected 0.3 cm inferior pole right renal calcification [facility], , 02/09/2025 10:30 AM
[2025-02-09] MEDS: LACTATED RINGERS 1,000 ML IV SCH (10:45)
[2025-02-09] MEDS: IV FLUID CONTINUATION 1,000 ML IV ONE ×2 (10:46→13:49)
[2025-02-09] MEDS: DEXAMETHASONE SOD PHOSPHATE 4 MG/ML 1 ML VIAL IV ONE (10:55)
[2025-02-09] MEDS: ONDANSETRON 4 MG/2 ML VIAL IVP ONE ×2 (10:55→13:40)
[2025-02-09] MEDS: CITRIC ACID-SODIUM CITRATE 15 ML CUP PO ONE (11:08)
[2025-02-09] MEDS: fentaNYL (PF) 50 MCG/ML 2 ML AMP IVP PRN (11:11)
[2025-02-09] MEDS: MIDAZOLAM 2 MG/2 ML VIAL IV ONE (11:12)
[2025-02-09] MEDS ORDERED: PHENYLEPHRINE 10 MG/ML VIAL ONE (11:50)
[2025-02-09] MEDS ORDERED: fentaNYL (PF) 50 MCG/ML 2 ML AMP ONE (11:50)
[2025-02-09] MEDS ORDERED: MIDAZOLAM 2 MG/2 ML VIAL ONE (11:50)
[2025-02-09] MEDS ORDERED: SUCCINYLCHOLINE CHLORIDE 200 MG/10 ML VIAL IV ONE (11:50)
[2025-02-09] MEDS ORDERED: PROPOFOL 10 MG/ML 20 ML VIAL IV ONE (11:50)
[2025-02-09] MEDS ORDERED: LIDOCAINE 1% INJ 10MG/ML (20 ML MDV) ONE (11:50)
[2025-02-09] MEDS ORDERED: DEXAMETHASONE SOD PHOSPHATE 4 MG/ML 1 ML VIAL ONE (11:50)
[2025-02-09] MEDS: GENTAMICIN 120 MG in SODIUM CHLORIDE 0.9% 100 ML IVPB PRN (11:53)
--- NOTE | 2025-02-09 12:56 | P.OP ---
Date of Procedure: 02/09/25 Preoperative Diagnosis: Bilateral kidney stone Postoperative Diagnosis: Same Procedure(s) Performed: Cystoscopy, bilateral ureteroscopy, holmium laser lithotripsy, stone basketing and stent insertion Implants: 6 Malaysian by 24 cm stents in the bilateral ureters Anesthesia: DANIEL Surgeon: Lamonte Pinedo Estimated Blood Loss (ml): 5 Pathology: other (Bilateral kidney stones) Condition: stable Disposition: PACU Indications for Procedure: This is a 69-year-old female with history of bilateral kidney stones, also has history of recurrent kidney stones. She has been having symptomatic bilateral flank pain. CT showed evidence of a 5 mm right lower pole stone, and two 3 mm left-sided renal stones. Discussed with her her stone are nonobstructive but they could be contributing to her pain. At this point she wants to proceed with bilateral ureteroscopy with holmium laser. She is aware of the risk which include but not limited to bleeding, infection, injury to the ureter. Discussed potential persistent pain even with stone removal Description of Procedure: Patient brought to the operating room, general anesthesia was induced. She was prepped and draped in sterile fashion placed in a dorsolithotomy position. Cystoscopy through the 21 Malaysian sheath was inserted per urethra, cystoscopy was performed showed no abnormality within the bladder. Attention was then carried to the right ureteral orifice, this was intubated with a sensor wire, the wire was advanced under fluoroscopy into the kidney. Next an 1113 Malaysian access sheath was passed over the wire into the proximal ureter. The flexible ureteroscope was inserted through the access sheath, patient had a torturous right ureter, I was able to advance the scope into the kidney over a wire renoscopy was performed show this stone in the lower pole. Using the holmium laser the stone was fragmented, stone fragments were removed using the stone basket. Repeat renoscopy showed no sizable fragments or injury to the kidney. On fluoroscopy there was no radiopaque density seen. Pullback ureteroscopy was performed showed no injury to the ureter or ureteral stones. as ureteroscope was withdrawn a sensor wire was advanced through. Next a ureteral stent was passed over the wire, the proximal curl was visualized on fluoroscopy and the distal curl was visualized using the cystoscope. the left ureteral orifice was intubated with a sensor wire, the wire was advanced under fluoroscopy into the kidney. Next an 1113 Malaysian access sheath was passed over the wire into the proximal ureter. Next a flexible ureteroscope was inserted through the access sheath, renoscopy was performed which showed 2 stones 1 in the upper and 1 in the lower pole. Using the holmium laser the stones were fragmented, stone fragments were removed using the stone basket. Repeat renoscopy showed no sizable fragments or injury to the kidney. Pullback ureteroscopy was performed showed no injury to the ureter or ureteral stones, as ureteroscope was withdrawn a sensor wire was advanced through. Next a ureteral stent was passed over the wire, the proximal curl was visualized on fluoroscopy and the distal curl was visualized using the cystoscope. The bladder was emptied at the end of the case. Patient tolerated procedure well and taken to recovery in stable condition
[2025-02-09 13:11] VITALS: TEMP 97.7
[2025-02-09] MEDS: HYDROmorphone 0.5 MG/0.5 ML SYRINGE IVP ONE (13:17)
--- NOTE | 2025-02-09 13:17 | FL ---
Fluoroscopy INDICATION: Pain FINDINGS: Fluoroscopy time: 24 seconds. Total dose area product (DAP) in uGy*m?, mGy*cm? (or similar): 0.47920 Images obtained: 9. Images document ureteroscopy and stent placement IMPRESSION: 1. Documentation of fluoroscopy. [facility], , 02/09/2025 1:15 PM
[2025-02-09] MEDS: KETOROLAC 15 MG/ML 1 ML VIAL IVP STA (13:55)
[2025-02-09 14:07] VITALS: PULSE 90; RESP 14
[2025-02-09 14:23] VITALS: BP 142/75
== END 2025-02-09 14:46 | disposition home or self-care (01) ==
LOC: OR 10:01
PROVIDERS: ATTEND Urology
DX: N20.0 Calculus of kidney (principal); E03.9 Hypothyroidism, unspecified; F41.9 Anxiety disorder, unspecified; F32.A Depression, unspecified; K21.9 Gastro-esophageal reflux disease without esophagitis; Z79.890 Hormone replacement therapy; Z87.891 Personal history of nicotine dependence; Z88.0 Allergy status to penicillin; Z88.1 Allergy status to other antibiotic agents; Z90.710 Acquired absence of both cervix and uterus; Z98.890 Other specified postprocedural states; Z79.899 Other long term (current) drug therapy
CPT/HCPCS: 52356; 82365; 74018; C2625; C1769; J2250; J0330; J1100; J2405; J2003; J3010; J1580; J1885; J2704; J1171; J2371